=== PATIENT | male | born 1985 | race Hispanic/Latino ===

== ENCOUNTER 2018-01-15 05:53 | Day surgery (SDC) | payer OTHER ==
[2018-01-14 12:49] VITALS: BMI 30.2
[2018-01-15] MEDS ORDERED: Midazolam HCl 2 mg/2 ml Vial ONE (07:47)
--- NOTE | 2018-01-15 08:52 | OP ---
DATE OF PROCEDURE: 01/15/2018 PROCEDURE: Esophagogastroduodenoscopy. PREOPERATIVE DIAGNOSIS: Esophageal varices surveillance. He has had repeated banding procedures don e and today's exam is to verify completion banding. PROCEDURE IN DETAIL: Informed consent was obtained from the patient. He was sedated with total intr avenous anesthesia. The bite block was placed and the endoscope was advanced easily to the second po rtion of the duodenum and retroflexion was performed in the stomach. The esophagus had 3 columns of small varices which are most prominently identified when he was coughing. Otherwise, these flattened out completely and the previous scars from the prior banding were noted. The varices were adequatel y treated at this point and did not require repeat banding today. The stomach had severe portal hype rtensive gastropathy in the body and fundus. Retroflexed views in the stomach revealed prominent rug al folds, but no obvious gastric varices. There was nodular antral gastritis present. The pylorus a nd first and second portions of the duodenum were normal. IMPRESSION: 1. Small varices not amenable to banding today. Scar from previous banding procedures were noted. He appears to have had adequate completion banding for varices at this point. 2. Severe portal hypertensive gastropathy. 3. Antral nodular gastritis. RECOMMENDATIONS: 1. Repeat EGD in 6-12 months. 2. Follow up in GI Clinic.
[2018-01-15] MEDS ORDERED: Lidocaine 1% PF 5 ML VIAL ONE (16:34)
== END 2018-01-15 09:40 | disposition home or self-care (01) ==
LOC: SDC 05:53
PROVIDERS: ATTEND Internal Medicine Gastroenterology
PROC: 0DJ08ZZ Inspection of Upper Intestinal Tract, Via Natural or Artificial Opening Endoscopic (ICD-10-PCS; principal; 2018-01-15)
DX: I85.00 Esophageal varices without bleeding (principal); K76.6 Portal hypertension; K70.31 Alcoholic cirrhosis of liver with ascites; K31.89 Other diseases of stomach and duodenum; K29.60 Other gastritis without bleeding; Z79.899 Other long term (current) drug therapy; Z91.018 Allergy to other foods; Z98.890 Other specified postprocedural states; Z87.891 Personal history of nicotine dependence
CPT/HCPCS: J2001; J2250

== ENCOUNTER 2018-09-04 07:41 | Day surgery (SDC) | payer MEDICARE ==
[2018-09-03 10:19] VITALS: BMI 28.1
[2018-09-04] MEDS ORDERED: Fentanyl 100 MCG/2 ML VIAL ONE (10:45)
--- NOTE | 2018-09-04 11:44 | OP ---
DATE OF PROCEDURE: 09/04/2018 PROCEDURE PERFORMED: Esophagogastroduodenoscopy with banding of esophageal varices. PREOPERATIVE DIAGNOSIS: Esophageal varices. OPERATIVE NOTE: Informed consent was obtained from the patient. He was sedated with total intraveno us anesthesia. The endoscope was advanced easily to the second portion of the duodenum and retroflex ion was performed in the stomach. The esophagus had 2 columns of large varices, 1 with red signs in the distal 5 cm of the esophagus. A band was placed over both varices. One band was placed directly over the area of the red signs and one of the varices. There was severe portal hypertensive gastrop athy throughout the stomach. The pylorus and first and second portions of the duodenum were unremark able. IMPRESSION: 1. Two columns of large esophageal varices each banded with 1 band per varix. 2. Severe portal hypertensive gastropathy. RECOMMENDATIONS: Repeat EGD in 4 weeks.
[2018-09-04] MEDS ORDERED: Lidocaine 1% PF 5 ML VIAL ONE (17:13)
[2018-09-04] MEDS ORDERED: PROPOFOL 200 MG/20 ML VIAL ONE (17:13)
== END 2018-09-04 12:20 | disposition home or self-care (01) ==
LOC: SDC 07:41
PROVIDERS: ATTEND Internal Medicine Gastroenterology
PROC: 06L38CZ Occlusion of Esophageal Vein with Extraluminal Device, Via Natural or Artificial Opening Endoscopic (ICD-10-PCS; principal; 2018-09-04)
DX: K76.6 Portal hypertension (principal); K70.31 Alcoholic cirrhosis of liver with ascites; I85.10 Secondary esophageal varices without bleeding; K31.89 Other diseases of stomach and duodenum; Z87.891 Personal history of nicotine dependence; Z79.899 Other long term (current) drug therapy; Z91.018 Allergy to other foods
CPT/HCPCS: J2001; J2704; J3010

== ENCOUNTER → 2018-10-29 | Day surgery (SDC) | payer MEDICARE ==
[2018-10-28 16:05] VITALS: BMI 28.1
[~2018-10-29] MED LIST: Lidocaine 1% PF 5 ML VIAL ONE; PROPOFOL 200 MG/20 ML VIAL ONE
--- NOTE | 2018-10-29 16:13 | OP ---
DATE OF PROCEDURE: 10/29/2018 PROCEDURE PERFORMED: Esophagogastroduodenoscopy with banding of esophageal varices and biopsy of gastric polyp. PREOPERATIVE DIAGNOSIS: Surveillance of esophageal varices. DESCRIPTION OF PROCEDURE: Informed consent was obtained from the patient. He was sedated with total intravenous anesthesia. A bite block was placed and the endoscope was advanced easily to the second portion of the duodenum and retroflexion was performed in the stomach. The esophagus had 2 columns, large grade 2 varices. These were in the distal 5 cm of the esophagus and were banded with one band on each varix. Good hemostasis was confirmed with those varices. There was no active bleeding at that time. The stomach had severe portal hypertensive gastropathy. There were prominent folds in the body of the stomach and there could be some degree of gastric varices; however, they are not blue and obvious. There were a few gastric polyps in the antrum with white apices. Biopsy was obtained from one of these polyps to rule out carcinoid. The first and second portions of the duodenum were normal. IMPRESSION: 1. Gastric antral polyp with white apices, biopsied. 2. Two large grade 2 varices in the distal 5 cm of the esophagus, banded. 3. Severe portal hypertensive gastropathy. RECOMMENDATIONS: 1. Await histopathology. 2. Follow up in GI clinic in 6 weeks. 3. Continue Nadolol. Job ID: [id number]
== END ==
LOC: SDC 07:00
PROVIDERS: ATTEND Internal Medicine Gastroenterology
PROC: 06L38CZ Occlusion of Esophageal Vein with Extraluminal Device, Via Natural or Artificial Opening Endoscopic (ICD-10-PCS; principal; 2018-10-29)
PROC: 0DB68ZX Excision of Stomach, Via Natural or Artificial Opening Endoscopic, Diagnostic (ICD-10-PCS; 2018-10-29)
DX: I85.01 Esophageal varices with bleeding (principal); K31.7 Polyp of stomach and duodenum; K76.6 Portal hypertension; K31.89 Other diseases of stomach and duodenum
CPT/HCPCS: 88305; 88312; 88342; J2001; J2704

== ENCOUNTER 2019-01-15 07:34 | Outpatient (CLI) | payer MEDICARE ==
--- NOTE | 2019-01-15 09:17 | ULT ---
TESTICULAR ULTRASOUND WITH DOPPLER: Date: 01/15/19 HISTORY: Testicular pain. COMPARISON: None. TECHNIQUE: Santiago scale, color flow, Doppler imaging, and spectral waveform analysis performed of the left and rig ht testicle. FINDINGS: Right Testicle: Punctate echogenic foci compatible with microlithiasis. No solid masses. Right testicle measures 3.7 x 2.0 x 2.9 cm. Right epididymis measures 1.3 x 0.9 cm. There are tubular structures with increased f low upon Valsalva, compatible with varicoceles. No significant fluid. Left Testicle: Punctate echogenic foci compatible with microlithiasis. No solid masses. Left testicle measures 3.1 x 2.1 x 3.7 cm. Left epididymis has a normal echotexture, measuring 1.6 x 1.0 cm. Multiple tubular str uctures with increased flow upon Valsalva, with evidence for varicoceles. No significant fluid. Testicular Doppler: Vascular flow to both testicles is symmetric. IMPRESSION: 1. Multiple echogenic foci left and right testicle, compatible with testicular microlithiasis. 2. Bilateral varicoceles, left greater than right. 3. Urology consultation recommended. POS: [facility]
== END 2019-01-15 07:35 | disposition home or self-care (01) ==
LOC: BICMAMMO 07:34
PROVIDERS: ATTEND Family Medicine
DX: N63.0 Unspecified lump in unspecified breast (principal); N50.9 Disorder of male genital organs, unspecified; I86.1 Scrotal varices
CPT/HCPCS: 76870; 77066; 93976; G0279

== ENCOUNTER 2019-01-27 09:56 | Outpatient (CLI) | payer MEDICARE ==
[2019-01-27] MEDS ORDERED: Iopamidol 370 76% 100 ML VIAL ONE (10:57)
--- NOTE | 2019-01-27 12:45 | CT ---
CT ABDOMEN WITH AND WITHOUT IV CONTRAST CT PELVIS WITH AND WITHOUT IV CONTRAST: DATE: 01/27/2019. HISTORY: Cirrhosis. Right upper quadrant abdominal pain with pain radiating to patient's back. COMPARISON: None available. FINDINGS: The lung bases are clear. There is a nodular peripheral contour of the liver most compatible with ci rrhosis. There is evidence of capsular retraction involving the anterolateral aspect of the right an d left hepatic lobes. There are irregular low-density areas, 1 beneath the level of capsular retracti on and the secondary within the right hepatic lobe. The area in the right hepatic lobe measures appro ximately 5 cm x 2 cm. There is no evidence of enhancement on the arterial phase of imaging and these areas of heterogeneity are only well seen on the portal venous phase of imaging. Findings are most likely related to areas of scarring and/or possibly regenerating nodules. The caudate lobe of the li joss is enlarged with respect to the remainder of the right and left hepatic lobes and this results in luminal narrowing of the hepatic IVC. The spleen is enlarged measuring 19.4 cm in craniocaudal dimensions. There is dilatation of the sple yaya as well as main portal vein with each measuring approximately 17 mm suggesting portal hypertensio n. There is evidence of varices seen in the region of the splenic hilum and inferior to this region. There is stranding seen within the mesentery with associated mesenteric edema, which is likely rela jewels to congestion likely related to venous congestion due to cirrhosis. The left kidney is atrophied with renal cortical thinning. There is left hydronephrosis, and finding s are likely related to chronic process and probable UPJ-type obstruction. The lung bases are clear aside from minimal atelectasis in the region of the right middle lobe. The pancreas, bilateral adrenal glands, right kidney, urinary bladder, and opacified small bowel demo nstrate a normal CT appearance. The appendix is visualized and normal in caliber. There are prominent areas of increased density seen along the course of the left gonadal vein adjacen t to what is presumed a prominent varix in the left aspect of the abdomen which is again thought to b e related to a greater degree of venous congestion and associated edema in this region. Minimal vascular calcifications are seen in the abdominal aorta. No enlarged lymph nodes are seen by CT size criteria, although a few mildly prominent mesenteric lymp h nodes are seen, probably reactive in origin. Osseous structures are intact. IMPRESSION: 1. Cirrhosis and splenomegaly with portal hypertension. 2. Low-density areas within the liver, one of which is beneath an area of capsular retraction, proba holly related to areas of scarring or possibly regenerating nodules. However, MRI of the abdomen and [employer] are recommended for further evaluation. 3. Narrowing of the hepatic inferior vena cava secondary to enlargement of the caudate lobe of the l iver due to cirrhosis. 4. Mesenteric edema with findings likely related to venous congestion secondary to cirrhosis. 5. Chronic findings involving the left kidney with left renal atrophy and renal cortical thinning wi th left hydronephrosis probably attributable to ureteropelvic junction-type obstruction. CODE T POS: [facility]
== END 2019-01-27 09:57 | disposition home or self-care (01) ==
LOC: BICCT 09:56
PROVIDERS: ATTEND Physician Assistant Medical
DX: K70.31 Alcoholic cirrhosis of liver with ascites (principal); I85.00 Esophageal varices without bleeding; M54.5 Low back pain; K76.6 Portal hypertension; N26.1 Atrophy of kidney (terminal); N13.30 Unspecified hydronephrosis; N28.89 Other specified disorders of kidney and ureter
CPT/HCPCS: 74178; Q9967

== ENCOUNTER 2019-02-19 07:23 | Outpatient (CLI) | payer MEDICARE ==
[2019-02-19 09:02] LABS: Estimated GFR-MDRD - POC Greater than 90
--- NOTE | 2019-02-19 10:02 | MRI ---
[facility] Abdomen W WO Con: 02/19/2019 12:00 AM CLINICAL INDICATION: Liver lesion seen on a prior CT evaluation. History of cirrhosis of the liver COMPARISON: CT of the abdomen and pelvis dated January 27, 2019 TECHNIQUE: Pre and dynamic post contrast evaluation of the abdomen was performed on a 1.5 Elisabeth scan er. The following sequences were obtained: Multiplanar multisequence MR images were obtained of the tyree cool utilizing MRCP protocol. 18 ml of MultiHance was administered. MRCP was also performed using a 3-D respiratory triggered T2-we ighted and axial thin slice breath-hold single shot FSE sequences. Image quality is adequate. FINDINGS: Liver is 19.7 cm in size, heterogeneous signal intensity and heterogeneous enhancement pattern. No the hypodense lesion seen on the comparison CT evaluation corresponds to areas of stellate T1 hypo intensity, T2 hyperintensity with delayed enhancement. There is mild retraction of the anterior right hepatic lobe sclerotic margins. No suspicious focal lesion is demonstrated. Iron deposition: 9 Gallbladder is seen with a small intraluminal stone and there is not intrahepatic or extrahepatic kallie iary ductal dilatation. Hepatic arterial anatomy classical from the celiac axis . There is early bifurcation of the right hep atic artery from the common hepatic artery. Aorta is within normal limits. No stenoses: Intrahepatic and extrahepatic bile ducts: Normal. Gallbladder is normal with small intraluminal stone . Lymph nodes: No pathologically enlarged There is no ascites. Spleen: Enlarged measuring 23 cm in length Adrenal glands: Normal. Kidneys: There is a chronic UPJ obstruction of the left kidney with thinning of the left renal cortic al mantle. The right kidney is normal-appearing. No abnormal bone marrow signal abnormality is evident. IMPRESSION: The hypodense abnormality seen involving the right hepatic lobe on the comparison CT evaluation is li aiyana related to focal confluent fibrosis of the liver. No suspicious focal liver lesion is evident. Cirrhosis of the liver with findings of portal hypertension. Cholelithiasis. 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
[2019-02-19] MEDS ORDERED: Gadobenate Dimeglumine 529 MG/1 ML (20ML VIAL) ONE (13:57)
== END 2019-02-19 07:24 | disposition home or self-care (01) ==
LOC: BICMRI 07:23
PROVIDERS: ATTEND Physician Assistant Medical
DX: K70.31 Alcoholic cirrhosis of liver with ascites (principal); I85.10 Secondary esophageal varices without bleeding; R93.3 Abnormal findings on diagnostic imaging of other parts of digestive tract; R93.819 Abnormal radiologic findings on diagnostic imaging of unspecified testicle; M54.5 Low back pain; K74.60 Unspecified cirrhosis of liver; K76.6 Portal hypertension; N13.5 Crossing vessel and stricture of ureter without hydronephrosis; K80.20 Calculus of gallbladder without cholecystitis without obstruction; K76.9 Liver disease, unspecified
CPT/HCPCS: 74183; 82565; A9577

== ENCOUNTER 2019-08-28 07:46 | Outpatient (CLI) | payer MEDICARE ==
--- NOTE | 2019-08-28 10:15 | ULT ---
ABDOMINAL ULTRASOUND: HISTORY: Abdominal pain. FINDINGS: The gallbladder shows diffuse wall thickening and pericholecystic edema. No definite gallstone ident ified. There is mild gallbladder distention. The common duct is within normal range measured at 3 m m. The technologist describes a negative Vallejo's sign. There is hepatomegaly with liver measuring up to 20 cm. There is splenomegaly with the spleen measuring 23 cm. Aorta is mostly obscured but appears unremarkable as visualized. IVC is unremarkable as visualized. Pancreas is obscured. Both kidneys measured 13-14 cm in length. There is a large irregularly shaped cystic mass in the lef t renal pelvis measuring 6-12 cm. When comparison is made to prior CT of abdomen dated 01/27/2019 and MRI of the abdomen dated 02/19/2019, this was described as a left UPJ obstruction with dilated left re nal pelvis. The right kidney is unremarkable. IMPRESSION: 1. Hepatosplenomegaly is again noted. This has been previously described on CT and MRI of abdomen. 2. The gallbladder is abnormal with thickened wall and pericholecystic edema. No gallstones are barry ntified. The technologist describes a negative Vallejo's sign. 3. Left hydronephrosis with dilated left renal pelvis which has been previously described on MRI and CT. POS: [facility]
== END 2019-08-28 07:47 | disposition home or self-care (01) ==
LOC: BICULT 07:46
PROVIDERS: ATTEND Family Medicine
DX: R10.84 Generalized abdominal pain (principal); R16.2 Hepatomegaly with splenomegaly, not elsewhere classified; K82.8 Other specified diseases of gallbladder; N28.89 Other specified disorders of kidney and ureter; N13.30 Unspecified hydronephrosis
CPT/HCPCS: 76700

== ENCOUNTER 2020-05-12 14:29 | Inpatient (IN) | payer MEDICARE ==
[2020-05-12 15:46] LABS: #Eosinphils 0.1 thou/uL (0.0-0.7); #Lymphocytes 0.4 thou/uL (1.20-3.40); #Monocytes 0.6 thou/uL (0.11-0.59); #Neutrophils 4.8 thou/uL (1.40-6.50); %Basophils 0.1 % (0.0-1.0); %Eosinophils 2.4 % (0.0-10.0); %Lymphocytes 5.9 % (21.0-51.0); %Monocytes 9.9 % (0.0-10.0); %Neutrophils 81.7 % (42.0-75.0); Hemoglobin 11.6 g/dL (14.0-18.0); Mean Corpuscular HGB CONC 34.3 g/dL (32.0-36.0); Mean Corpuscular Hemoglobin 35.6 pg (27.0-31.0); Mean Platelet Volume 7.1 fL (7.4-10.4); Platelet Count 37 thou/uL (130-400); RBC Distribution Width 14.2 % (11.5-14.5); Red Blood Cell (RBC) Count 3.26 mill/uL (4.70-6.10); White Blood Cell (WBC) Count 5.9 thou/uL (4.8-10.8)
[2020-05-12 15:55] LABS: Bilirubin 2+ (Negative); Blood, Urine Negative (Negative); Clarity Clear (Clear); Glucose, Urine (Dipstick) Normal (Negative); Leukocyte Negative Leu/uL (Negative); Nitrite Negative (Negative); Protein, Urine (Dipstick) 20 mg/dL (Neg-Trace)
[2020-05-12 15:57] LABS: ALT (SGPT) 24 U/L (8-55); AST (SGOT) 71 U/L (5-34); Albumin 2.8 g/dL (3.5-5.0); Alkaline Phosphatase 124 U/L (40-110); Anion Gap 13 mmol/L (10-20); BUN (Urea Nitrogen) 7 mg/dL (8.9-20.6); Bilirubin, Total 11.5 mg/dL (0.2-1.2); Calc. Creatinine Clearance 0 mL/min (70-130); Calcium 7.8 mg/dL (7.8-10.44); Carbon Dioxide 25 mmol/L (22-29); Chloride 94 mmol/L (98-107); Estimated GFR-MDRD Greater than 90; Globulin 5.2 g/dL (2.4-3.5); Glucose 114 mg/dL (70-105); Sodium 129 mmol/L (136-145)
[2020-05-12 16:02] LABS: Potassium 2.8 mmol/L (3.5-5.1)
[2020-05-12] MEDS ORDERED: Morphine 4 MG/ML VIAL ONE (16:51)
--- NOTE | 2020-05-12 17:21 | RAD ---
EXAM: CHEST ONE VIEW HISTORY: Dyspnea. Abdominal distention. COMPARISON: 04/20/2016. FINDINGS: Cardiac silhouette is magnified by projection. Pulmonary vasculature is within normal limits. There i s minimal linear and patchy parenchymal density at the left lung base which may be related to atelectasis. However, developing pneumonia at the left lung base is a possibility. The lungs are othe rwise clear. No other interval change. IMPRESSION: Linear and patchy parenchymal density left lung base which may be related to atelectasis. Developing pneumonia cannot be excluded. Follow-up chest x-ray is recommended to ensure resolution.
--- NOTE | 2020-05-12 18:18 | ULT ---
Exam: Right upper quadrant ultrasound: HISTORY: Abdominal pain. Elevated bilirubin. COMPARISON: Abdominal ultrasound 08/28/2019 FINDINGS: Liver: Coarsened echotexture with peripheral nodular contour suggesting cirrhosis. No focal hepatic l esion is appreciated. Imaging of the main portal vein demonstrates absence of flow within the more distal main portal vein suggesting thrombus within the main portal vein and possibly occlusion of the main portal vein distally. Gallbladder: Gallbladder wall is thickened measuring 0.9 cm in thickness. Echogenic material seen in the gallbladder lumen suggesting sludge. There is a small echogenic focus seen in the gallbladder lumen with suggestion of posterior shadowing, this likely represents a gallbladder calculus. Common bile duct: The common duct is normal in caliber measuring 0.5 cm in diameter. Pancreas: Completely obscured by shadowing from bowel gas and not evaluated on this exam. Right kidney: The right kidney is enlarged measuring 17 cm in length, the right kidney does demonstra te a normal sonographic appearance and there is no renal cortical thinning or mass appreciated. IVC: The visualized IVC demonstrates a normal sonographic appearance. Moderate to large amount of ascites is present. IMPRESSION: 1. Suggestion of occlusive or near occlusive thrombus in the distal main portal vein. 2. Evidence of cirrhosis. 3. Gallbladder wall thickening with gallbladder sludge as well as a gallbladder calculus. Gallbladder wall thickening can be seen with cholecystitis in the correct clinical scenario. However, hypoproteinemia or liver disease versus other etiologies could also result in gallbladder wall thicke alvarez. 4. Normal caliber common duct. 5. Right kidney is large in size but otherwise demonstrates a normal sonographic appearance.
--- NOTE | 2020-05-12 19:17 | CT ---
CT OF THE ABDOMEN AND PELVIS WITH IV CONTRAST: 05/12/20 INDICATIONS: 34-year-old male with abdominal distention. COMPARISON: Prior MR of the abdomen dated 02/19/19, CT abdomen and pelvis dated 01/27/19. FINDINGS: There is mild subsegmental atelectasis involving both lower lobes. There is gynecomastia. Again seen is cirrhotic morphology of the liver with heterogeneous enhancement of the hepatic parench yma. Spleen remains enlarged measuring 20.8 cm in greatest axial dimension where it previously measur ed 18.1 cm. There are numerous splenic paraesophageal varicosities. Chronic left UPJ obstruction is similar appearing. Right kidney is normal appearing. Adrenal gland and visualized pancreas is normal appearing. Small gallstones seen within the gallbladder. There is now worsening severe ascites. There is a fat and fluid containing umbilical hernia. The visualized bladder, rectum, and perirectal soft tissues are unremarkable appearing. The colon is largely decompressed. The appendix is not defin itely seen. Small bowel is normal caliber. Scattered degenerative and osteoarthritic change. No acute osseous abnormalities evident. IMPRESSION: 1. Findings of cirrhosis with worsening portal hypertension and splenomegaly. There is now promi nent ascites. 2. Stable chronic left UPJ obstruction. 3. Cholelithiasis. 4. With the presence of ascites and incomplete distention of the small and large bowel, entity s uch as a colitis cannot be entirely excluded. The appendix is not definitely seen. POS: [facility]
[2020-05-12 22:57] VITALS: BMI 28.0
[2020-05-12] MEDS ORDERED: Potassium Chloride 40 MEQ in Sodium Chloride 0.9% 500 ML IVPB PRN (23:51)
[2020-05-12] MEDS ORDERED: Potassium Chloride 20 MEQ TAB PO SCH (23:59)
[2020-05-13] MEDS ORDERED: Spironolactone 100 MG TAB PO SCH (00:15)
[2020-05-13] MEDS ORDERED: HYDROcodone/Acetaminophen 5/325 mg Tablet PO PRN (00:26)
[2020-05-13] MEDS ORDERED: Dextrose 5% in Water 1,000 ML IV PRN (00:28)
[2020-05-13] MEDS ORDERED: Dextrose 50% Abboject 50 ML SYRINGE SLOW IVP PRN (00:28)
[2020-05-13 01:04] LABS: PTT 38.9 sec (22.9-36.1); Prothrombin Time 22.2 sec (12.0-14.7)
[2020-05-13] MEDS ORDERED: Magnesium 2 GM/50 ML 2 GM in Premix Bag 1 BAG IVPB SCH (01:45)
--- NOTE | 2020-05-13 02:10 | HP ---
PRIMARY CARE PHYSICIAN: Dr. Pedersen. CHUTE BOSS: Dr. Millard. CHIEF COMPLAINT: Abdominal distention and pain. HISTORY OF PRESENT ILLNESS: The patient is a 34-year-old male, with a past medical history of cirrhosis, hep C, esophageal varices, and hypertension, who presents to the ER for the above complaint. The patient reports abdominal distention over the last 1 to 2 months with some associated pain. He reports over the last two weeks, the swelling has been increasing and pain became severe yesterday. He also reports some associated bilateral swelling to lower extremities, which he reports is new for him. He reports approximately an 8-pound weight gain in the past month. He denies any nausea, vomiting, or diarrhea. He denies any urinary symptoms. He denies any fever or chills. He denies any chest pain or shortness of breath. He denies any cough. For these reasons, he came to the ER. In the ER, EKG, the patient presented tachycardic, 102 with a respiratory rate of 23, and pain scale 7/10 with normal blood pressure and afebrile. His BNP was 115.9. His troponin was 0.017. He also had chest x-ray. It showed linear and patchy parenchymal densities in the left lower base, which may be atelectasis or developing pneumonia that cannot be excluded. Recommended a followup chest x-ray. He showed up with a potassium of 2.8, a sodium of 129. His bilirubin was 11.5, AST 71, ALT 24, alk phos 124, and albumin of 2.8. His lipase was 86. The patient was given morphine 4 and sent to the floor for admission. PAST MEDICAL HISTORY: 1. Cirrhosis. 2. Esophageal varices. 3. Hepatitis C, cured per patient. 4. Hypertension. SURGICAL HISTORY: EGD x2. SOCIAL HISTORY: He lives with his family at home. He drinks greater than 10 drinks per day. He states last drink was several days ago. He smokes approximately 10 cigarettes per day for the past 20 years. He denies any illicit drug use. FAMILY HISTORY: Noncontributory to this case. ALLERGIES: NO KNOWN ALLERGIES. MEDICATIONS: 1. Lactulose 30 mL p.o. daily. 2. Vitamin B1 of 250 mg p.o. daily. 3. Folic acid 0.8 mg p.o. daily. 4. Potassium chloride 20 mEq p.o. daily. 5. Lasix 40 mg b.i.d. p.o. b.i.d. 6. Ferrous sulfate 325 mg p.o. b.i.d. REVIEW OF SYSTEMS: All other review of systems are negative unless otherwise noted in the HPI. PHYSICAL EXAMINATION: VITAL SIGNS: Temperature 98.3, blood pressure 136/93, heart rate 102, respiratory rate 23, and 99% on room air. 7/10 pain scale. CONSTITUTIONAL: Patient is alert and oriented to person, place, and time. No acute distress. Nontoxic appearing. HEAD: Atraumatic and normocephalic. EYES: PERRLA. Extraocular muscles intact. Sclerae nonicteric. ENT: Nares patent bilaterally. Oropharynx clear. Uvula midline. Moist mucous membranes. No oral lesions. NECK: Supple. Trachea midline. No JVD. No cervical lymphadenopathy. RESPIRATORY/CHEST: Respirations are even and unlabored. No rhonchi, wheezes, or rales. HEART: S1, S2 auscultated. No murmurs, rubs, or gallops. ABDOMEN: Firm, nontender, and severely distended. Bowel sounds are distant. No guarding and there is an umbilical hernia present. BACK: Full range of motion. No central spinous tenderness. No CVA tenderness. EXTREMITIES: Upper extremities, strength, normal. Range of motion, normal. Sensation, intact. Radial pulses are palpable. No swelling. Bilateral lower extremities, full range of motion. Sensation intact. There is 2+ pitting edema to bilateral lower extremities. Palpable pedal pulses. NEUROLOGIC: Alert and oriented to person, place, and time. Cranial nerves 2 through 12 intact. PSYCHIATRIC: Normal affect. No suicidal or homicidal ideation. LABORATORIES AND DIAGNOSTICS: Chest x-ray showed linear and patchy parenchymal density left lung base, may be atelectasis or developing pneumonia, which cannot be excluded. Recommended followup chest x-ray. Sodium was 129, potassium 2.8, chloride 94, carbon dioxide 25, BUN 7, creatinine 0.82, glucose 114, calcium 7.8 , total bili 11.5, AST 71, ALT 24, and alk phos 124. Troponin 0.017. BNP 115.9. Albumin 2.8 and lipase 86. WBC is 5.9, hemoglobin 11.6, hematocrit 33.9, and platelet count 37. Urinalysis, 2+ bilirubin and 8 urobilinogen. IMPRESSION AND PLAN: 1. We will admit the patient to Oncology floor for observation status. Expected length of stay less than two midnights. Patient presented with tachycardic and tachypneic. EKG was sinus tach, 105. Initial troponin is negative. BNP was 115.9. Abdomen is severely distended. Patient reports an 8-pound weight gain in the past month or two. He has swelling to his bilateral lower extremities, 2+ edema. He is in no respiratory distress. Chest x-ray showed linear and patchy parenchymal densities in the left lung base, may be atelectasis or developing pneumonia that cannot be excluded. Potassium was 2.8, sodium was 129, T bili 11.5, and alk phos 124. WBCs of 5.9, and platelets of 37. We will place the patient on a fluid restriction of 1500 mL, 2 g sodium restriction, daily weights. We will start spironolactone. We will check a B12, folate, ammonia, INR for baseline. We will recheck CMP, CBC in the a.m. We will consult IR for paracentesis and GI. We will repeat chest x-ray in the morning. We will do Accu-Cheks before meals and at bedtime. 2. Hyponatremia. Hypotonic, likely FVO secondary to Cirrhosis. Patient presented with a sodium of 129. A&O x 4. We will recheck level in the a.m. We will fluid restrict. 3. Hypokalemia. The patient presented with a potassium of 2.8. We will give 40 mEq IV and 40 mEq oral and check a Mag level and recheck level in the a.m. 4. Thrombocytopenia. Patient presents with a platelet count of 37. No sign of any bruising. He denies any hemoptysis or bleeding. Baseline appears to be in the 40s. 5. History of cirrhosis with esophageal varices. Patient denies any hemoptysis. Hemoglobin is stable at 11.6. Denies any bleeding per rectum. 6. Hepatitis C. Patient reports cured. 7. Hypertension. Patient takes Lasix 40 mg p.o. b.i.d. We will hold for now secondary to low sodium. We will start spironolactone and we will recheck labs in the a.m. 8. No DVT prophylaxis. No SCDs for DVT prophylaxis. Protonix for gastrointestinal prophylaxis. 9. Patient is a full code. His MPOA is Kera, his number is [phone]. 10. Discussed the case with Dr. Nate Ramirez. Job ID: [id number] [id number]
[2020-05-13 05:08] LABS: #Eosinphils 0.2 thou/uL (0.0-0.7); #Lymphocytes 0.4 thou/uL (1.20-3.40); #Monocytes 0.7 thou/uL (0.11-0.59); #Neutrophils 5.1 thou/uL (1.40-6.50); %Basophils 0.6 % (0.0-1.0); %Eosinophils 2.6 % (0.0-10.0); %Lymphocytes 5.8 % (21.0-51.0); %Monocytes 11.1 % (0.0-10.0); %Neutrophils 79.9 % (42.0-75.0); Hemoglobin 10.5 g/dL (14.0-18.0); Mean Corpuscular HGB CONC 33.5 g/dL (32.0-36.0); Mean Corpuscular Hemoglobin 34.5 pg (27.0-31.0); Mean Platelet Volume 7.3 fL (7.4-10.4); Platelet Count 34 thou/uL (130-400); RBC Distribution Width 14.3 % (11.5-14.5); Red Blood Cell (RBC) Count 3.04 mill/uL (4.70-6.10); White Blood Cell (WBC) Count 6.4 thou/uL (4.8-10.8)
[2020-05-13 05:20] LABS: ALT (SGPT) 20 U/L (8-55); AST (SGOT) 64 U/L (5-34); Albumin 2.6 g/dL (3.5-5.0); Alkaline Phosphatase 107 U/L (40-110); Anion Gap 11 mmol/L (10-20); BUN (Urea Nitrogen) 8 mg/dL (8.9-20.6); Bilirubin, Total 11.1 mg/dL (0.2-1.2); Calc. Creatinine Clearance 160 mL/min (70-130); Calcium 7.5 mg/dL (7.8-10.44); Carbon Dioxide 27 mmol/L (22-29); Chloride 95 mmol/L (98-107); Estimated GFR-MDRD Greater than 90; Globulin 4.8 g/dL (2.4-3.5); Glucose 106 mg/dL (70-105); Magnesium 1.5 mg/dL (1.6-2.6); Potassium 3.2 mmol/L (3.5-5.1); Protein, Total 7.4 g/dL (6.0-8.3); Sodium 130 mmol/L (136-145)
--- NOTE | 2020-05-13 07:49 | RAD ---
EXAM: Chest 2 views: HISTORY: Left lung base opacity COMPARISON: 05/12/2020 FINDINGS: There is a normal-sized cardiomediastinal silhouette. There is no evidence of consolidation, mass, or pleural effusion. The bones are unremarkable. IMPRESSION: No evidence of acute cardiopulmonary disease
[2020-05-13] MEDS: Spironolactone 100 MG TAB PO SCH (10:13)
[2020-05-13] MEDS: Nadolol 40 MG TAB PO SCH (10:13)
[2020-05-13] MEDS: Folic Acid 1 MG TAB PO SCH (10:14)
[2020-05-13] MEDS: Multivitamin W/ Minerals 1 TAB PO SCH (10:14)
[2020-05-13] MEDS: Cyanocobalamin (Vitamin B-12) 1,000 MCG TAB PO SCH (10:14)
[2020-05-13] MEDS: Pantoprazole 40 MG GRANULES PACKET PO SCH (10:15)
[2020-05-13] MEDS ORDERED: Sodium Bicarbonate 2.5 MEQ/5 ML VIAL ONE (11:48)
[2020-05-13] MEDS ORDERED: Sodium Chloride 0.9% 10 ML ONE (12:17)
--- NOTE | 2020-05-13 12:32 | ULT ---
ULTRASOUND-GUIDED PARACENTESIS THERAPEUTIC: DATE: 05/13/2020 HISTORY: 34-year-old male with symptomatic ascites due to cirrhosis: Severe abdominal distention TECHNIQUE: Signed informed consent obtained. A four-quadrant survey of abdomen performed. Site selected for puncture: right lower quadrant Overlying skin prepared and draped in usual sterile fashion. 25-gauge needle used to apply buffered lidocaine superficially and deeply. 5 [place] Yueh catheter with stylette advanced into the pocket of free intraperitoneal fluid. After drainage, the Yueh catheter was removed. Patient tolerated the procedure well. No complications. FINDINGS: Volume of ascites prior to procedure:Very large. Volume of ascites fluid in the drainage pocket after drainage:large. Volume of ascites fluid drained:7000 mL Appearance of ascites fluid:nonhemorrhagic, straw-colored. IMPRESSION: Successful therapeutic paracentesis, with drainage of 7 L of ascites fluid.
--- NOTE | 2020-05-13 13:12 | PDOC.HOSPP ---
- Subjective Encounter Date: 05/13/20 Encounter Time: 11:30 Subjective: is getting paracentesis under usg guidance with platelet transfusion no sob or abd pain now - Objective Vital Signs & Weight: Vital Signs (12 hours) Temp Pulse Pulse Resp BP BP BP 05/13/20 12:25 98.3 F 78 18 106/65 05/13/20 11:40 98.2 F 88 20 111/69 05/13/20 11:31 98.5 F 83 18 118/76 05/13/20 11:15 98.5 F 16 118/76 05/13/20 09:07 98.5 F 90 18 123/76 05/13/20 08:00 98.5 F 90 18 123/76 123/76 05/13/20 03:41 98.4 F 99 16 118/80 Pulse Ox 05/13/20 12:25 99 05/13/20 11:40 98 05/13/20 11:31 96 05/13/20 11:15 97 05/13/20 09:07 98 05/13/20 08:00 98 05/13/20 03:41 95 Weight Weight 184 lb 3.2 oz I&O: 05/12/20 05/13/20 05/14/20 06:59 06:59 06:59 Intake Total 1040 Balance 1040 Result Diagrams: 05/13/20 04:41 05/13/20 04:41 Additional Labs: Accuchecks 05/13/20 05/13/20 10:34 06:19 POC Glucose 182 H 109 Hospitalist ROS - Medication Medications: Active Medications Generic Name Dose Route Start Last Admin Trade Name Faina PRN Reason Stop Dose Admin Cyanocobalamin 1,000 mcg 05/13/20 09:00 05/13/20 10:14 Vitamin B-12 PO 1,000 mcg DAILY RENARD Administration Folic Acid 1 mg 05/13/20 09:00 05/13/20 10:14 Folvite PO 1 mg DAILY RENARD Administration Potassium Chloride 40 meq/ 520 mls @ 130 mls/hr 05/12/20 23:51 05/13/20 01:14 Sodium Chloride IVPB 520 mls ASDIR PRN Administration FOR SERUM K+ 2.5 - 3.5 Iron/Minerals/Multivitamins 1 tab 05/13/20 09:00 05/13/20 10:14 Theragran M PO 1 tab DAILY RENARD Administration Lactulose 30 gm 05/13/20 09:00 05/13/20 10:14 Lactulose PO 30 gm DAILY RENARD Administration Nadolol 20 mg 05/13/20 09:00 05/13/20 10:13 Corgard PO 20 mg DAILY RENARD Administration Pantoprazole Sodium 40 mg 05/13/20 09:00 05/13/20 10:15 Protonix PO Not Given DAILY RENARD Pantoprazole Sodium 40 mg 05/13/20 09:00 05/13/20 10:14 Protonix PO 40 mg DAILY RENARD Administration Spironolactone 100 mg 05/13/20 08:00 05/13/20 10:13 Aldactone PO 100 mg QAM-WM RENARD Administration - Exam General Appearance: awake alert Eye: PERRL, scleral icterus ENT: no oropharyngeal lesions, dry oral mucosa Neck: supple, no JVD Heart: RRR, no murmur Respiratory: no wheezes, no rales Gastrointestinal: soft, normal bowel sounds, no guarding, no rigidity, distended Extremities: no cyanosis, 2+ LE edema Neurological: cranial nerve grossly intact, no focal deficits Psychiatric: A&O x 3 Hosp A/P (1) Cirrhosis Code(s): K74.60 - UNSPECIFIED CIRRHOSIS OF LIVER Status: Chronic Qualifiers: Hepatic cirrhosis type: alcoholic cirrhosis Ascites presence: with ascites Qualified Code(s): K70.31 - Alcoholic cirrhosis of liver with ascites (2) Alcohol abuse Code(s): F10.10 - ALCOHOL ABUSE, UNCOMPLICATED Status: Chronic (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 Code(s): D68.4 - ACQUIRED COAGULATION FACTOR DEFICIENCY Status: Chronic (4) Chronic hepatitis C Code(s): B18.2 - CHRONIC VIRAL HEPATITIS C Status: Chronic Qualifiers: Hepatic coma status: without hepatic coma Qualified Code(s): B18.2 - Chronic viral hepatitis C (5) Pancytopenia Code(s): D61.818 - OTHER PANCYTOPENIA Status: Chronic (6) Portal vein thrombosis Code(s): I81 - PORTAL VEIN THROMBOSIS Status: Acute - Plan had paracentesis with removal of 7lts ascitic fluid known h/o ascites sec to alc abuse has chr pancytopenia with coagulopathy usg shows finding s/o portal vein thrombosis, inr is 2, ptt is 38 and platelets of 34 Has a MELD score of 23 poor prognosis, is jaundiced with t.bili of 11 counselled regarding complete cessation of alcohol use change status to inpatient, needs close monitoring of renal function and BP for another 24hrs
--- NOTE | 2020-05-14 02:13 | CON ---
DATE OF CONSULTATION: 05/13/2020 CONSULTING PROVIDER: Alex Valentin NP REASON FOR CONSULTATION: Increase in abdominal distention and abdominal pain. HISTORY OF PRESENT ILLNESS: The patient is a 34-year-old male with past medical history of chronic hepatitis C infection, hypertension, and cirrhosis complicated by esophageal varices and hepatic encephalopathy, presenting with complaints of increasing abdominal distention and abdominal pain. He states that he was in his usual state of health until approximately 2 months ago when he began to experience increased abdominal swelling and weight gain over that same time period. However, this also started to include increased lower extremity edema over the last 2 weeks that ultimately prompted the patient to come to the [facility] ER for further evaluation. With this increased abdominal swelling and lower extremity edema, he also had associated generalized abdominal pain that he characterized as a pressure type pain/discomfort that was constant with waxing/waning severity, and reached a severity of 8/10. He denied any clear exacerbating factors, but was significantly better after a large volume paracentesis. During this time period, he also noted worsening of his umbilical hernia as well as mildly increased diarrhea, but the patient is also currently taking lactulose as an outpatient for hepatic encephalopathy. Otherwise, he denied any nausea, vomiting, fevers, chills, hematemesis, melena, hematochezia, dysphagia, odynophagia, constipation, weight loss, or encephalopathy. REVIEW OF SYSTEMS: A 10-category review of systems was obtained with all responses negative except for the pertinent positives as listed in HPI. PAST MEDICAL HISTORY: As per HPI. PAST SURGICAL HISTORY: EGD x2. FAMILY HISTORY: Denies any GI malignancies. SOCIAL HISTORY: He was recently drinking approximately 10 beers per day with his last drink approximately 1 week ago. He was also smoking approximately 1/2 pack per day for the last 20 years. Currently, denies any illicit drug use. OUTPATIENT MEDICATIONS: Reviewed. ALLERGIES: NO KNOWN DRUG ALLERGIES. PHYSICAL EXAMINATION: VITAL SIGNS: Temperature 98.4, pulse 87, blood pressure 97/54, respiratory rate 14, saturating 95% on room air. GENERAL: The patient was lying in bed, in no acute distress. Alert and oriented x4. HEENT: Normocephalic, atraumatic. NECK: Supple. No JVD noted. Positive scleral icterus. CARDIOVASCULAR: Regular rate and rhythm with a 3/6 systolic murmur best heard at the right upper sternal border. RESPIRATORY: Clear to auscultation bilaterally with no discernible wheezes or rales. ABDOMEN: Normoactive bowel sounds, semi-tense to palpation, significantly distended, but no tenderness to palpation in any abdominal quadrant. EXTREMITIES: 1+ bilateral lower extremity edema extending up to the mid thigh. LABORATORY DATA: CBC with a white blood cell count of 6.4, hemoglobin 10.5, hematocrit 31.3, platelets 34. INR 2.0. Chemistry with a sodium of 130, potassium 3.2, chloride 95, CO2 of 27, BUN 8, creatinine 0.76, glucose 106, AST 64, ALT 20, alkaline phosphatase 107, total bilirubin 11.1, albumin 2.6, ammonia 52. MELD score 27. IMAGING DATA: Abdominal ultrasound obtained on May 12, 2020, showed an occlusive or near occlusive thrombus in the distal main portal vein, cholelithiasis without evidence of cholecystitis and normal diameter of the common bile duct at 5 mm in addition to coarsened echotexture of the liver suggesting cirrhotic morphology, but no focal hepatic lesion was appreciated, and a [id number] amount of ascites was also present. CT of the abdomen and pelvis was obtained on May 12, 2020, which showed the presence of gynecomastia as well as cirrhotic morphology of the liver with heterogeneous enhancement of the hepatic parenchyma. Splenomegaly was also seen, but no evidence of hepatic lesions. Severe ascites was also seen with a fat and fluid containing umbilical hernia and a stable chronic left UPJ obstruction. ASSESSMENT AND PLAN: The patient is a 34-year-old male with past medical history of chronic hepatitis C infection, status post treatment, hypertension, and cirrhosis complicated by esophageal varices and hepatic encephalopathy, now presenting with new onset ascites and portal vein thrombosis, which appears to be chronic in nature. Abdominal ascites: The patient has a prior history of alcoholic cirrhosis that has been complicated by esophageal varices and hepatic encephalopathy. However, despite recommendations to discontinue alcohol consumption, he has continued to do so in an outpatient setting, drinking approximately 10 beers per day. Over the last 2 months, he has been having slowly worsening abdominal distention with imaging on admission consistent with abdominal ascites. On laboratory evaluation, he also has significantly worsening hepatic dysfunction with a current MELD score of 27. He subsequently underwent paracentesis on May 13, 2020, with approximately 7 L of straw-colored fluid obtained, although this fluid was not sent for analysis (would have been nice to evaluate for possible SBP and/or malignant type process given new onset ascites). Recommendations: 1. The patient may need a repeat paracentesis here in the near future, but we will continue to monitor clinically. 2. We would continue the patient on spironolactone 100 mg daily, but add furosemide 40 mg daily to the regimen for adequate diuresis. 3. Recommend a low-sodium/high-protein diet. 4. Fluid restriction is not needed as long as the patient is consuming free water (She will be placed on low-sodium intake). Lower extremity edema: The patient is presenting with increased lower extremity edema over the last 2 weeks, most likely from worsening liver failure and hypoalbuminemia, which is likely contributing to his ascites as well. Recommendations: 1. We would continue with diuretic management as explained above. Alcoholic cirrhosis: The patient is presenting with a longstanding history of alcohol consumption and resultant cirrhosis that has been made on prior diagnosis and complicated by esophageal varices and hepatic encephalopathy. Currently, the patient is presenting with decompensated disease given the presence of esophageal varices, hepatic encephalopathy, and now new onset ascites and lower extremity edema. The patient's calculated MELD score at this time is 27 with a Child-Orozco classification C indicative of worsening hepatic function, most likely secondary to recent alcohol consumption. At this time, the patient's 90-day mortality is approaching approximately 30% given his current labs and most likely due to his continued alcohol consumption. Recommendations: 1. We would continue to trend LFTs and INR daily for signs of worsening hepatic function/hepatic failure. 2. Continue to monitor for worsening hepatic encephalopathy as it may be a harbinger of worsening liver function. 3. We would continue the patient on lactulose 30 mL daily with a goal of having approximately 3 to 4 semi-solid bowel movements a day. Evaluation with serum ammonia is not an accurate indicator of hepatic encephalopathy and therefore should not be trended. 4. We will continue nadolol 20 mg daily as part of primary prophylaxis for esophageal varices with a history of bleeding in the past. 5. Upper endoscopy for re-evaluation of his esophageal varices is not indicated at this time, but would instead defer to an outpatient evaluation. We will continue to follow. Please call with any questions. Job ID: [id number]
[2020-05-14 03:47] LABS: #Eosinphils 0.1 thou/uL (0.0-0.7); #Lymphocytes 0.4 thou/uL (1.20-3.40); #Monocytes 0.8 thou/uL (0.11-0.59); #Neutrophils 4.4 thou/uL (1.40-6.50); %Basophils 0.6 % (0.0-1.0); %Eosinophils 2.5 % (0.0-10.0); %Lymphocytes 7.6 % (21.0-51.0); %Monocytes 13.1 % (0.0-10.0); %Neutrophils 76.1 % (42.0-75.0); Hemoglobin 10.7 g/dL (14.0-18.0); Mean Corpuscular HGB CONC 34.4 g/dL (32.0-36.0); Mean Corpuscular Hemoglobin 35.7 pg (27.0-31.0); Mean Platelet Volume 7.1 fL (7.4-10.4); Platelet Count 41 thou/uL (130-400); RBC Distribution Width 14.4 % (11.5-14.5); White Blood Cell (WBC) Count 5.7 thou/uL (4.8-10.8)
[2020-05-14 03:55] LABS: INR-International Normal Ratio 2.1; Prothrombin Time 23.5 sec (12.0-14.7)
[2020-05-14 04:07] LABS: Anion Gap 10 mmol/L (10-20); BUN (Urea Nitrogen) 8 mg/dL (8.9-20.6); Calc. Creatinine Clearance 165 mL/min (70-130); Calcium 7.5 mg/dL (7.8-10.44); Carbon Dioxide 28 mmol/L (22-29); Chloride 98 mmol/L (98-107); Estimated GFR-MDRD Greater than 90; Glucose 94 mg/dL (70-105); Potassium 3.3 mmol/L (3.5-5.1); Sodium 133 mmol/L (136-145)
[2020-05-14 04:13] LABS: Troponin I 0.011 ng/mL (< 0.028)
[2020-05-14 08:21] LABS: ALT (SGPT) 19 U/L (8-55); AST (SGOT) 62 U/L (5-34); Albumin 2.5 g/dL (3.5-5.0); Alkaline Phosphatase 107 U/L (40-110); Bilirubin, Direct 5.9 mg/dL (0.1-0.3); Bilirubin, Total 9.1 mg/dL (0.2-1.2); Protein, Total 6.9 g/dL (6.0-8.3)
[2020-05-14 08:30] LABS: RBC Count-Automated (BF) 3115 /cu.mm; WBC/Nucleated-Auto (BF) 63 uL
[2020-05-14 08:34] LABS: BF Color Yellow; Body Fluid Source Ascites Body Fluid; Clarity Hazy (Clear); Tube # EDTA
[2020-05-14] MEDS ORDERED: Potassium Chloride 20 MEQ TAB PO SCH (08:45)
[2020-05-14 09:04] LABS: Lymphocytes 24 %
[2020-05-14 09:05] LABS: BF Segmented Neutrophils 4 %; Cell Count Non Hematic 72 %
[2020-05-14] MEDS ORDERED: Phytonadione 10 MG/ML AMP PO SCH (10:00)
[2020-05-14] MEDS: Furosemide 40 MG TAB PO SCH (10:09)
[2020-05-14] MEDS: Spironolactone 100 MG TAB PO SCH (10:09)
[2020-05-14] MEDS: Folic Acid 1 MG TAB PO SCH (10:10)
[2020-05-14] MEDS: Nadolol 40 MG TAB PO SCH (10:10)
[2020-05-14] MEDS: Multivitamin W/ Minerals 1 TAB PO SCH (10:10)
[2020-05-14] MEDS: Pantoprazole 40 MG GRANULES PACKET PO SCH (10:11)
[2020-05-14] MEDS: Cyanocobalamin (Vitamin B-12) 1,000 MCG TAB PO SCH (10:17)
[2020-05-14] MEDS ORDERED: Diazepam 5 MG TAB PO SCH ×2 (14:45→16:00)
--- NOTE | 2020-05-14 15:04 | PDOC.EVN ---
Event Note - Event Note Event Note: Patient's PCP is Dr. Morro Pedersen. Discussed with [facility] residents, care transfered to [facility].
--- NOTE | 2020-05-14 15:37 | PDOC.FM ---
- Subjective Subjective: This patient's care was transferred to our service due to confusion of pt's PCP upon admission. Pt states he is feeling much better after his paracentesis yesterday. States he would really like to go home to see his kids. States he would leave for a couple hours and come back. Instructed him this was not an option and that he would have to leave AMA. Pt states that he will think about it for a while. Denies feeling like he is withdrawing but does not he has withdrawn in the past from alcohol. - Objective Vital Signs & Weight: Vital Signs (12 hours) Temp Pulse Resp BP BP Pulse Ox 05/14/20 14:12 104/61 05/14/20 11:53 98.2 F 82 18 108/68 99 05/14/20 08:00 98 F 84 18 110/62 97 05/14/20 04:00 98.8 F 86 18 97/56 L 98 Weight Weight 83.552 kg I&O: 05/13/20 05/14/20 05/15/20 06:59 06:59 06:59 Intake Total 2760 240 Balance 2760 240 Result Diagrams: 05/14/20 03:32 05/14/20 03:32 Phys Exam - Physical Examination Constitutional: NAD scleral icterus No respiratory distress distended, tympanic, non tender Musculoskeletal: no edema Neurological: moves all 4 limbs Psychiatric: A&O x 3 Deviation from normal: Appears restless, eager to return home Skin: no rash Deviation from normal: Mild jaundice Dx/Plan - Plan Plan: Alcoholic Cirrhosis with Symptomatic Ascites - Paracentesis yesterday - Dr. Williamson, GI, consulted - MELD 26 - ASE protocol prn - Pt considering AMA discharge today - Has been given alcohol cessation resources - Plan to trend LFT's Dispo: Inpatient, oncology. Plan for another 24 hours of observation through highest risk of withdrawal period. has called multiple times noting that when pt withdrawals he becomes aggressive making her fearful for his return. In this setting we feel it is unsafe for both pt and family for him to return at this time. We would also like to continue to trend his liver function following his recent paracentesis. Addendum - Attending - Attending Attestation Date/Time: 05/14/201934 I personally evaluated the patient and discussed the management with Dr. Moreno I agree with the History, Examination, Assessment and Plan documented above with any addition or exceptions noted below- Patient without crrhosisomplaints. Feels better after paracentesis. Afebrile VSS. A/P: 1) Ascites secondary to cirrhosis- continue current medications. 2) Alcoholic cirrhosis- no evidence of withrdrawal at this time; continue ASE protocol. 3) Hepatic encephalopathy- improved; continue lactulose. Anticipate d/c home in next 1-2 days.
[2020-05-14] MEDS ORDERED: Diazepam 5 MG TAB PO PRN (15:53)
[2020-05-14] MEDS ORDERED: Thiamine HCl 200 MG/2 ML VIAL IM SCH (16:00)
--- NOTE | 2020-05-14 17:31 | PRG ---
DATE OF SERVICE: REASON FOR CONSULTATION: Cirrhosis with new-onset ascites. SUBJECTIVE: Overnight, the patient did not have any acute events or problems. Today, he states that his abdominal pain continues to have been resolved, although he does continue to have significant abdominal distention. He had not received his diuretic medications this morning as of yet, so he did not have any increased urination with their administration. Otherwise, he denies any nausea, vomiting, fevers, chills, hematemesis, melena, hematochezia, dysphagia or odynophagia. OBJECTIVE: VITAL SIGNS: Temperature 98.2, pulse 82, blood pressure 104/61, respiratory rate 18, and saturating 99% on room air. GENERAL: The patient is lying in bed, in no acute distress. Alert and oriented x4. CARDIOVASCULAR: Regular rate and rhythm with a 3/6 systolic murmur best heard at the right upper sternal border. RESPIRATORY: Clear to auscultation bilaterally. ABDOMEN: Normoactive bowel sounds. Softer to palpation when compared to previous. Significant distention still noted, but no tenderness to palpation in any abdominal quadrant. EXTREMITIES: 1+ bilateral lower extremity edema extending up to the thigh. LABORATORY DATA: CBC with a white blood cell count of 5.7, hemoglobin 10.7, hematocrit 31.2, and platelets 41. INR 2.1. Chemistry with a sodium of 133, potassium 3.3, chloride 98, CO2 of 28, BUN 8, creatinine 0.74, and glucose 89. AST 62, ALT 19, alkaline phosphatase 107, and total bilirubin 9.1. MELD score calculation at 26. IMAGING DATA: No current GI imaging is available for review. ASSESSMENT AND PLAN: The patient is a 34-year-old male with past medical history of chronic hepatitis C infection, status post treatment, hypertension, and cirrhosis, complicated by esophageal varices and hepatic encephalopathy, now presenting with new-onset ascites and portal vein thrombosis, which appears to be chronic in nature. Abdominal ascites: The patient is presenting with a prior diagnosis of alcoholic cirrhosis, that had been complicated by esophageal varices, hepatic encephalopathy; however, despite recommendations to discontinue alcohol consumption, he has continued to do so, drinking approximately 10 beers per day. Over the last 2 months, he had been slowly having worsening abdominal distention with imaging on admission consistent with abdominal ascites. On evaluation of the paracentesis fluid, the segmented neutrophil count was not high enough to warrant a diagnosis of SBP, and with a total fluid protein of 1.5, this is most likely related to a transudative process indicative of portal hypertension. Recommendations: 1. The patient will likely need a repeat paracentesis here in the near future, but we would wait approximately 72 hours before repeating the procedure. 2. We will continue the patient on spironolactone 100 mg daily and furosemide 40 mg daily. 3. We stressed the adherence to a low-sodium/high-protein diet. 4. Fluid restriction is not needed. Lower extremity edema: The patient is presenting with increased lower extremity edema in association with his increasing abdominal distention, most likely from worsening liver failure and hypoalbuminemia. Recommendations: We will continue with the current diuretic management and continue to monitor renal function with diuretic administration. Alcoholic cirrhosis: The patient is presenting with a longstanding history of alcohol consumption and resultant cirrhosis, that is complicated by esophageal varices, hepatic encephalopathy, and now abdominal ascites and lower extremity edema. Currently, the patient is presenting with decompensated disease with a calculated MELD score of 26 and Child-Orozco classification C, most likely due to his recent/continued alcohol consumption. At this time, based on his current MELD score, the patient's 90-day mortality is approximately 25% to 30% indicative of a fairly poor prognosis if he does not abstain from alcohol consumption. His most recent EGD showed the presence of small esophageal varices, but were in the process of banding to eradication. He is currently on nadolol 20 mg daily as part of primary prophylaxis for esophageal varix bleeding. Recommendations: 1. We will continue to trend his LFTs and INR daily for signs of worsening hepatic function/hepatic failure. 2. Continue to monitor the patient for worsening hepatic encephalopathy as it may be a harbinger of worsening liver disease/function. 3. Continue the patient on lactulose 30 mL daily with a goal of having 3 to 4 semi-solid bowel movements per day. 4. Continue nadolol 20 mg daily as part of primary prophylaxis for esophageal varix rupture. 5. Anticoagulation is not indicated at this time for his portal vein thrombosis as chronic portal vein thrombosis is chronic with patients with cirrhosis. We will continue to follow. Please call with any questions. Job ID: [id number]
[2020-05-15] MEDS ORDERED: Diazepam 5 MG TAB PO PRN (04:00)
[2020-05-15] MEDS ORDERED: Diazepam 5 MG TAB PO SCH ×2 (04:00→08:15)
--- NOTE | 2020-05-15 07:40 | PDOC.FM ---
- Subjective Subjective: Overnight patient started having hallucinations and agitation. He was given Valium 10mg at around 0400. He continues to be confused this morning, nursing staff and security had to lucinda him outside and convince him to come back. Despite this behavior, he is easily convinced to take PO meds for agitation and non-violent. He otherwise has no tremors or VS abnormality. confirms last drink Sunday night and this is typical behavior for him when withdrawing. - Objective MAR Reviewed: Yes Vital Signs & Weight: Vital Signs (12 hours) Temp Pulse Resp BP BP Pulse Ox 05/15/20 04:00 98.1 F 84 20 99/61 97 05/15/20 02:15 92/55 L 05/14/20 23:52 98.1 F 78 16 92/55 L 97 Weight Weight 88.677 kg I&O: 05/14/20 05/15/20 05/16/20 06:59 06:59 06:59 Intake Total 2760 870 Balance 2760 870 Result Diagrams: 05/15/20 10:24 05/15/20 10:24 Phys Exam - Physical Examination confused but pleasant HEENT: PERRLA, moist MMs scleral icterus Respiratory: no wheezing, no rales, clear to auscultation bilateral Cardiovascular: RRR, no significant murmur Gastrointestinal: soft, non-tender distended but not taut, +fluid wave Musculoskeletal: no edema, pulses present Neurological: moves all 4 limbs Deviation from normal: AOx1 Dx/Plan (1) Cirrhosis Code(s): K74.60 - UNSPECIFIED CIRRHOSIS OF LIVER Status: Chronic Qualifiers: Hepatic cirrhosis type: alcoholic cirrhosis Ascites presence: with ascites Qualified Code(s): K70.31 - Alcoholic cirrhosis of liver with ascites (2) Alcohol abuse Code(s): F10.10 - ALCOHOL ABUSE, UNCOMPLICATED Status: Chronic (3) Chronic hepatitis C Code(s): B18.2 - CHRONIC VIRAL HEPATITIS C Status: Chronic Qualifiers: Hepatic coma status: without hepatic coma Qualified Code(s): B18.2 - Chronic viral hepatitis C (4) Portal vein thrombosis Code(s): I81 - PORTAL VEIN THROMBOSIS Status: Acute - Plan Plan: Decompensated Cirrhosis 2/2 Alcoholic Liver Disease and Chronic Hep C: - Paracentesis 05/13, improved abd pain - Dr. Williamson, GI, following, appreciat recs - MELD 25 - trend LFT's, coags, bili, downtrending - strict IOs and continue diuresis. - interested in palliative/hospice care. Will plan to get them involved when mind clears. Alcohol Withdrawal: - currently withdrawing it appears. - Start scheduled Serax taper and prn Ativan for ASE > 10 - Nursing staff to encourage pt to stay since he is not stable for d/c at this time. Portal Vein Thrombosis: - no anticoagulation indicated at this time. Anemia: - stable Dispo: Guarded at this time d/t withdrawal. Addendum - Attending - Attending Attestation Date/Time: 05/15/20 1230 I personally evaluated the patient and discussed the management with Dr. Baltazar I agree with the History, Examination, Assessment and Plan documented above with any addition or exceptions noted below - Patient hallucinating; has been redirectable at times. No tremor. Afebrile VSS. A/P: 1) Alcohol withdrawal syndrome- started on scheduled serax. Continue to monitor.
[2020-05-15] MEDS ORDERED: Lorazepam 2 MG/ML VIAL SLOW IVP PRN (08:04)
[2020-05-15] MEDS ORDERED: Diazepam 10 MG/2 ML SYRINGE IVP SCH (08:15)
[2020-05-15] MEDS: Spironolactone 100 MG TAB PO SCH (08:23)
[2020-05-15] MEDS: Furosemide 40 MG TAB PO SCH (08:23)
[2020-05-15] MEDS: Magnesium Oxide 400 MG TAB PO SCH (08:27)
[2020-05-15] MEDS: Multivitamin W/ Minerals 1 TAB PO SCH (08:28)
[2020-05-15] MEDS: Thiamine 100 MG TAB PO SCH (08:28)
[2020-05-15] MEDS: Folic Acid 1 MG TAB PO SCH (08:28)
[2020-05-15] MEDS: Potassium Chloride 20 MEQ TAB PO SCH (08:28)
[2020-05-15] MEDS: Nadolol 40 MG TAB PO SCH (08:29)
[2020-05-15] MEDS: Pantoprazole 40 MG GRANULES PACKET PO SCH (08:30)
[2020-05-15] MEDS ORDERED: Multivitamin W/ Minerals 1 TAB PO SCH (09:00)
[2020-05-15] MEDS ORDERED: Folic Acid 1 MG TAB PO SCH (09:00)
[2020-05-15] MEDS: Cyanocobalamin (Vitamin B-12) 1,000 MCG TAB PO SCH (09:03)
[2020-05-15 10:36] LABS: Hemoglobin 11.9 g/dL (14.0-18.0); Red Blood Cell (RBC) Count 3.25 mill/uL (4.70-6.10); White Blood Cell (WBC) Count 5.3 thou/uL (4.8-10.8)
[2020-05-15 10:53] LABS: ALT (SGPT) 28 U/L (8-55); AST (SGOT) 76 U/L (5-34); Albumin 2.8 g/dL (3.5-5.0); Alkaline Phosphatase 124 U/L (40-110); Anion Gap 10 mmol/L (10-20); BUN (Urea Nitrogen) 10 mg/dL (8.9-20.6); Bilirubin, Total 10.2 mg/dL (0.2-1.2); Calc. Creatinine Clearance 160 mL/min (70-130); Calcium 8.2 mg/dL (7.8-10.44); Carbon Dioxide 28 mmol/L (22-29); Chloride 97 mmol/L (98-107); Estimated GFR-MDRD Greater than 90; Globulin 5.2 g/dL (2.4-3.5); Glucose 120 mg/dL (70-105); Potassium 3.4 mmol/L (3.5-5.1); Sodium 132 mmol/L (136-145)
[2020-05-15 10:54] LABS: INR-International Normal Ratio 1.8; PTT 36.6 sec (22.9-36.1); Prothrombin Time 21.2 sec (12.0-14.7)
[2020-05-15 11:10] LABS: #Basophils 0.1 thou/uL (0.0-0.2); #Eosinphils 0.2 thou/uL (0.0-0.7); #Lymphocytes 0.4 thou/uL (1.20-3.40); #Monocytes 0.6 thou/uL (0.11-0.59); #Neutrophils 4.1 thou/uL (1.40-6.50); %Basophils 1.4 % (0.0-1.0); %Eosinophils 3.2 % (0.0-10.0); %Lymphocytes 7.3 % (21.0-51.0); %Neutrophils 76.2 % (42.0-75.0); MDiff Complete? YES; Macrocytosis SLIGHT = 6-15 cells (100X) (0-5/hpf); Mean Corpuscular HGB CONC 34.6 g/dL (32.0-36.0); Mean Corpuscular Hemoglobin 36.5 pg (27.0-31.0); Platelet Count 52 thou/uL (130-400); Rouleaux Formation SLIGHT = 1-5 cells (100X) (None Seen)
[2020-05-15] MEDS ORDERED: Oxazepam 10 MG CAP PO SCH (12:00)
--- NOTE | 2020-05-15 14:32 | EKG ---
Test Reason : HYPOKALEMIA Blood Pressure : / mmHG Vent. Rate : 105 BPM Atrial Rate : 105 BPM P-R Int : 180 ms QRS Dur : 094 ms QT Int : 392 ms P-R-T Axes : 078 016 -07 degrees QTc Int : 518 ms Sinus tachycardia T wave abnormality, consider inferior ischemia Abnormal ECG Confirmed by BARON OLSON ([id number]), content editor GURINDER PIERRE ([id number]) on 05/15/2020 2:31:31 PM Referred By: Confirmed By:BARON Xiao
[2020-05-15] MEDS: Lorazepam 1 MG TAB PO PRN (14:50)
--- NOTE | 2020-05-15 15:31 | PRG ---
DATE OF SERVICE: 05/15/2020 REASON FOR CONSULTATION: Cirrhosis with new-onset ascites. SUBJECTIVE: Per nursing staff, overnight, the patient started to exhibit visual hallucinations and was having "a conversation with his cousin in the next room." He was also noticed to be walking up and down the halls and trying doors to other patient rooms. When questioned on this, he said that "I was looking for an exit." Per his , who was at bedside today, the patient has been acting somewhat strange in addition to threatening to leave AMA. Per nursing staff and per the patient's , it is unclear whether the patient has capacity in order to make his own healthcare decisions as he is withdrawing from alcohol. Otherwise, the patient states that he is feeling well with no other problems. He currently denies any nausea, vomiting, fevers, chills, hematemesis, melena, hematochezia, abdominal pain, dysphagia or odynophagia. OBJECTIVE: VITAL SIGNS: Temperature 97.9, pulse 90, blood pressure 118/72, respiratory rate 18, and saturating 99% on room air. GENERAL: The patient was lying in bed, in no acute distress. Alert and oriented x3. CARDIOVASCULAR: Regular rate and rhythm with a 3/6 systolic murmur best heard at the right upper sternal border. RESPIRATORY: Clear to auscultation bilaterally. ABDOMEN: Normoactive bowel sounds. Soft, but not tense to palpation. Significant abdominal distention still noted. No tenderness to palpation in any abdominal quadrant. EXTREMITIES: 1+ bilateral lower extremity edema extending up to the midthigh. LABORATORY DATA: CBC with a white blood cell count of 5.3, hemoglobin of 11.1, hematocrit of 34.4, and platelets of 52. INR of 1.8. Chemistry with a sodium of 132, potassium of 3.4, chloride of 97, CO2 of 28, BUN of 10, creatinine of 0.81, and glucose of 120. AST of 76, ALT of 28, alkaline phosphatase of 124, and total bilirubin of 10.2. IMAGING DATA: No current GI imaging is available for review. ASSESSMENT AND PLAN: The patient is a 34-year-old male with past medical history of chronic hepatitis C infection status post treatment, hypertension, and cirrhosis complicated by esophageal varices and hepatic encephalopathy, now presenting with new-onset ascites and portal vein thrombosis. Abdominal ascites: The patient is presenting with a prior diagnosis of alcoholic cirrhosis, and despite strong recommendations to abstain from alcohol consumption, he has continued to do so in the outpatient setting, consuming approximately 10 beers per day. However, over the last 2 months, he has been slowly having worsening abdominal distention with imaging obtained during this admission consistent with abdominal ascites. On analysis of the paracentesis fluid, he does not have any evidence of SBP with the fluid also related more to portal hypertension. Recommendations: 1. Continue the patient on spironolactone 100 mg daily and furosemide 40 mg daily. 2. Continue low-sodium/high-protein diet. 3. Fluid restriction is not needed. 4. The patient may need a repeat paracentesis in the near future, we would base this according to response to diuretic management. Lower extremity edema: The patient is presenting with increased lower extremity edema in association with his increased abdominal distention, most likely from worsening liver failure and hypoalbuminemia. Recommendations: 1. We would continue diuretic management and low-sodium diet as stated above. Alcoholic cirrhosis: The patient is presenting with a longstanding history of alcohol consumption and resultant cirrhosis, complicated by esophageal varices, hepatic encephalopathy, and now abdominal ascites with lower extremity edema, currently presenting with decompensated disease with a calculated MELD score of 25 and Child-Orozco classification C. Given the recent onset of ascites and lower extremity edema, it is most likely due to his recent increased alcohol consumption. Based on his current MELD score, the patient's 90-day mortality is approximately 25% indicative of fairly poor prognosis if he does not abstain from alcohol, and while he has a history of esophageal varices on his most recent EGD, he is currently on nadolol 20 mg daily as part of primary prophylaxis for esophageal varix bleeding. Recommendations: 1. We would continue to trend his LFTs and INR daily for signs of worsening hepatic function/hepatic failure. 2. Continue to monitor the patient clinically for worsening hepatic encephalopathy. 3. Given the increased frequency of bowel movements the patient is having, I would decrease the lactulose to 20 g daily with a goal of having 3 to 4 semi-solid bowel movements per day. 4. Continue nadolol 20 mg daily as part of primary prophylaxis for esophageal varix rupture. 5. Given the chronic nature of his portal vein thrombosis, I would refrain from any anticoagulation. We will continue to follow. Please call with any questions. Job ID: [id number]
[2020-05-15] MEDS: Oxazepam 10 MG CAP PO SCH (17:53)
[2020-05-16] MEDS: Oxazepam 10 MG CAP PO SCH ×5 (05:12→23:14)
[2020-05-16 06:09] LABS: INR-International Normal Ratio 1.9; Prothrombin Time 21.7 sec (12.0-14.7)
[2020-05-16 06:31] LABS: ALT (SGPT) 26 U/L (8-55); AST (SGOT) 63 U/L (5-34); Albumin 2.4 g/dL (3.5-5.0); Alkaline Phosphatase 108 U/L (40-110); Anion Gap 12 mmol/L (10-20); BUN (Urea Nitrogen) 11 mg/dL (8.9-20.6); Calc. Creatinine Clearance 177 mL/min (70-130); Calcium 7.8 mg/dL (7.8-10.44); Carbon Dioxide 26 mmol/L (22-29); Chloride 98 mmol/L (98-107); Estimated GFR-MDRD Greater than 90; Globulin 4.6 g/dL (2.4-3.5); Glucose 99 mg/dL (70-105); Potassium 3.5 mmol/L (3.5-5.1); Sodium 132 mmol/L (136-145)
[2020-05-16 06:43] LABS: Band 2 % (5-11); Eosinophils 6 % (0-10); Hemoglobin 10.6 g/dL (14.0-18.0); Hypochromia SLIGHT = 6-15 cells (100X) (0-5/hpf); Lymphocytes 10 % (21-51); MDiff Complete? YES; Macrocytosis SLIGHT = 6-15 cells (100X) (0-5/hpf); Mean Corpuscular HGB CONC 33.7 g/dL (32.0-36.0); Mean Corpuscular Hemoglobin 35.6 pg (27.0-31.0); Mean Platelet Volume 6.9 fL (7.4-10.4); Monocytes 10 % (0-10); Neutrophil 72 % (42-75); Platelet Count 42 thou/uL (130-400); Platelet Morphology Comment Appears Decreased; RBC Distribution Width 15.1 % (11.5-14.5); Red Blood Cell (RBC) Count 2.97 mill/uL (4.70-6.10); White Blood Cell (WBC) Count 4.5 thou/uL (4.8-10.8)
--- NOTE | 2020-05-16 07:31 | PDOC.FM ---
- Subjective Subjective: Pt doing well this am. Did wander overnight but no hallucinations reported. He does have a small tremor this morning but VSS and not agitated at this time. Denies pain. Reports BM regular. - Objective MAR Reviewed: Yes Vital Signs & Weight: Vital Signs (12 hours) Temp Pulse Resp BP BP Pulse Ox 05/16/20 04:00 98.1 F 85 18 103/67 103/67 99 05/16/20 02:23 104/68 05/16/20 00:00 98.2 F 94 18 104/68 96 05/15/20 20:35 98 05/15/20 20:30 98.3 F 96 18 104/73 98 Weight Weight 88.677 kg I&O: 05/15/20 05/16/20 05/17/20 06:59 06:59 06:59 Intake Total 870 1180 Balance 870 1180 Result Diagrams: 05/16/20 05:48 05/16/20 05:48 Phys Exam - Physical Examination Constitutional: NAD HEENT: moist MMs scleral icterus Respiratory: no wheezing, no rales, clear to auscultation bilateral Cardiovascular: RRR, no significant murmur Gastrointestinal: soft, non-tender distended, +fluid wave, not taut at this time 2+ pitting edema b/l Neurological: moves all 4 limbs Psychiatric: A&O x 3 Skin: cap refill <2 seconds Dx/Plan (1) Cirrhosis Code(s): K74.60 - UNSPECIFIED CIRRHOSIS OF LIVER Status: Chronic Qualifiers: Hepatic cirrhosis type: alcoholic cirrhosis Ascites presence: with ascites Qualified Code(s): K70.31 - Alcoholic cirrhosis of liver with ascites (2) Alcohol abuse Code(s): F10.10 - ALCOHOL ABUSE, UNCOMPLICATED Status: Chronic (3) Chronic hepatitis C Code(s): B18.2 - CHRONIC VIRAL HEPATITIS C Status: Chronic Qualifiers: Hepatic coma status: without hepatic coma Qualified Code(s): B18.2 - Chronic viral hepatitis C (4) Portal vein thrombosis Code(s): I81 - PORTAL VEIN THROMBOSIS Status: Acute - Plan Plan: Mild Delirium Tremens: - Scheduled Serax taper in place and prn Ativan for ASE > 10, ASE q4h - Nursing staff to encourage pt to stay since he is not stable for d/c at this time. Decompensated Cirrhosis 2/2 Alcoholic Liver Disease and Chronic Hep C: - Paracentesis 05/13, improved abd pain - Dr. Williamson, GI, following, appreciat recs - MELD 25 - trend LFT's, coags, bili, downtrending - strict IOs and continue diuresis. - interested in palliative/hospice care. Consulted and plans for meeting on 05/17 with . Portal Vein Thrombosis: - no anticoagulation indicated at this time. Anemia: - stable Dispo: Guarded at this time d/t withdrawal. Addendum - Attending - Attending Attestation Date/Time: 05/16/20 1257 I personally evaluated the patient and discussed the management with Dr. Baltazar I agree with the History, Examination, Assessment and Plan documented above with any addition or exceptions noted below - Patient without complaints; no tremor noted. Afebrile VSS A/P: 1) Alcohol withdrawal syndrome - continue benzo taper; plan for palliative care consult tomorrow for possible hospice. 2) Alcoholic cirrhosis- stable
[2020-05-16] MEDS: Nadolol 40 MG TAB PO SCH (07:56)
[2020-05-16] MEDS: Potassium Chloride 20 MEQ TAB PO SCH (07:56)
[2020-05-16] MEDS: Furosemide 40 MG TAB PO SCH (07:57)
[2020-05-16] MEDS: Magnesium Oxide 400 MG TAB PO SCH (07:57)
[2020-05-16] MEDS: Multivitamin W/ Minerals 1 TAB PO SCH (07:57)
[2020-05-16] MEDS: Folic Acid 1 MG TAB PO SCH (07:57)
[2020-05-16] MEDS: Thiamine 100 MG TAB PO SCH (07:57)
[2020-05-16] MEDS: Cyanocobalamin (Vitamin B-12) 1,000 MCG TAB PO SCH (07:57)
[2020-05-16] MEDS: Pantoprazole 40 MG GRANULES PACKET PO SCH (07:59)
[2020-05-16] MEDS: Lorazepam 1 MG TAB PO PRN (08:28)
[2020-05-16] MEDS: Spironolactone 100 MG TAB PO SCH (14:27)
--- NOTE | 2020-05-16 19:41 | PRG ---
DATE OF SERVICE: 05/16/2020 REASON FOR CONSULTATION: Cirrhosis with new onset ascites. SUBJECTIVE: Per nursing staff, overnight the patient started to exhibit some abnormal behavior with auditory and visual hallucinations. Today, on my examination of the patient, he was visually hallucinating "a white car jumping from the parking lot to the road." The patient's sensorium seems to be fairly intact. However, he does clearly exhibit withdrawal type symptoms at this time. Otherwise, the patient states that he is feeling well with no other problems. He currently denies any nausea, vomiting, fevers, chills, hematemesis, melena, hematochezia, abdominal pain, dysphagia, or odynophagia. As part of lactulose administration, he has been having anywhere between 4 and 6 bowel movements over the last 24 to 48 hours. He has also been given the spironolactone and Lasix and has been having significant increased urinary output with it. OBJECTIVE: VITAL SIGNS: Temperature 97.9, pulse 79, blood pressure 101/58, respiratory rate 16, saturating 100% on room air. GENERAL: The patient was standing at bedside, in no acute distress. Alert and oriented x2. CARDIOVASCULAR: Regular rate and rhythm with a 3/6 systolic murmur, best heard at the right upper sternal border. RESPIRATORY: Clear to auscultation bilaterally. ABDOMEN: Normoactive bowel sounds, soft. Significant abdominal distention still noted. No tenderness to palpation in any abdominal quadrant. EXTREMITIES: 1+ bilateral lower extremity edema extending up to the bilateral knees. LABORATORY DATA: CBC with a white blood cell count of 4.5, hemoglobin 10.6, hematocrit 31.4, platelets 42. INR 1.9. Chemistry with a sodium of 132, potassium 3.5, chloride 98, CO2 of 26, BUN 11, creatinine 0.73, glucose 99, AST 63, ALT 26, alkaline phosphatase 108, total bilirubin 8.0. Calculated MELD score at 25. IMAGING DATA: No current GI imaging is available for review. ASSESSMENT AND PLAN: The patient is a 34-year-old male with past medical history of chronic hepatitis C infection, status post treatment; hypertension; and cirrhosis, complicated by esophageal varices and hepatic encephalopathy, now presenting with new onset ascites and portal vein thrombosis. 1. Abdominal ascites. The patient is now presenting with a prior diagnosis of cirrhosis that is now complicated by the presence of abdominal ascites. The patient underwent paracentesis during this admission and was negative for SBP and is currently responding well to diuretic management. Recommendations: a. Would continue the patient on spironolactone 100 mg daily and furosemide 40 mg daily. b. Continue low-sodium/high-protein diet. c. Would consider repeat paracentesis prior to discharge with albumin administration. 2. Lower extremity edema. The patient also presented with concurrent lower extremity edema in addition to his abdominal ascites, this is most likely due to worsening liver failure with hypoalbuminemia. Recommendations: a. Continue with diuretic management and low-sodium diet as stated above. 3. Alcoholic cirrhosis. The patient has a longstanding history of alcohol consumption and resultant cirrhosis complicated by esophageal varices, hepatic encephalopathy, and now abdominal ascites and lower extremity edema. Currently, he is presenting with decompensated disease with a calculated MELD score of 25 and Child-Orozco classification C. Based on his current MELD score of 25, the patient's 90-day mortality is approximately 25%, but is currently downtrending, which is hopeful for some hepatic recovery. He is currently on lactulose 30 g daily and having approximately 3 to 4 bowel movements a day which is at goal. With his history of esophageal varices and band ligation in the past, he is currently on nadolol 20 mg daily as part of primary prophylaxis for esophageal varix bleeding with his pulse currently just above goal (goal heart rate of 55 to 65 beats per minute). Recommendations: a. We will continue to trend his LFTs and INR daily for signs of worsening hepatic function. b. Continue patient on withdrawal protocol given his visual hallucinations and withdrawal symptoms at the current time. c. Continue the patient on lactulose 20 g daily with a goal of having 3 to 4 semi-solid bowel movements per day. d. Continue nadolol 20 mg daily as part of primary prophylaxis for esophageal varix rupture. This may need to be titrated as an outpatient. e. Would refrain from any anticoagulation of chronic portal vein thrombosis. We will continue to follow peripherally at this point as we have no further recommendations. We would have the patient follow up in the GI Clinic within 2 weeks after discharge. Please call with any questions. Job ID: [id number]
[2020-05-17] MEDS: Oxazepam 10 MG CAP PO SCH ×3 (05:36→18:59)
[2020-05-17 07:20] LABS: Hemoglobin 10.4 g/dL (14.0-18.0); Mean Corpuscular HGB CONC 33.5 g/dL (32.0-36.0); Mean Corpuscular Hemoglobin 35.5 pg (27.0-31.0); Mean Platelet Volume 7.3 fL (7.4-10.4); Platelet Count 49 thou/uL (130-400); RBC Distribution Width 15.1 % (11.5-14.5); Red Blood Cell (RBC) Count 2.93 mill/uL (4.70-6.10)
--- NOTE | 2020-05-17 08:00 | PDOC.FM ---
- Subjective Subjective: Pt states that he is feeling well this morning. No more hallucinations. Does not feel tremulous. Discussed possible repeat paracentesis prior to discharge. Pt is agreeable. States he has a planned repeat paracentesis in [place] in the coming weeks. - Objective Vital Signs & Weight: Vital Signs (12 hours) Temp Pulse Resp BP BP BP BP 05/17/20 07:16 98/60 05/17/20 07:11 98.1 F 75 18 98/60 05/17/20 03:30 97.7 F 83 16 103/70 05/16/20 20:00 97.7 F 83 20 105/69 105/69 Pulse Ox 05/17/20 07:16 05/17/20 07:11 97 05/17/20 03:30 99 05/16/20 20:00 96 Weight Weight 88.677 kg I&O: 05/16/20 05/17/20 05/18/20 06:59 06:59 06:59 Intake Total 1180 780 Balance 1180 780 Result Diagrams: 05/17/20 05:28 05/16/20 05:48 Phys Exam - Physical Examination Constitutional: NAD HEENT: moist MMs Scleral icterus Respiratory: clear to auscultation bilateral Cardiovascular: RRR Distended, positive fluid wave, non tender Neurological: moves all 4 limbs Psychiatric: normal affect, A&O x 3 Deviation from normal: Petechial rash Dx/Plan - Plan Plan: Mild Delirium Tremens: - Scheduled Serax taper in place and prn Ativan for ASE > 10, ASE q4h - ASE of 4 this a.m. - Has not required ativan over serax taper since yesterday morning - Likely at end of downtrend of withdrawal sx at this point Decompensated Cirrhosis 2/2 Alcoholic Liver Disease and Chronic Hep C: - Paracentesis 05/13, improved abd pain - Dr. Williamson, GI, following, appreciate recs - MELD 25 - trend LFT's, coags, bili, downtrending - strict IOs and continue diuresis. - interested in palliative/hospice care. Consulted and plans for meeting on 05/17 with . Portal Vein Thrombosis: - no anticoagulation indicated at this time. Anemia: - stable Dispo: Stable, inpt medical. Withdrawal monitoring and anai and prn benzo tx per ASE protocol. Hospice eval today through . Possible paracentesis later today.
[2020-05-17] MEDS: Pantoprazole 40 MG GRANULES PACKET PO SCH (09:08)
[2020-05-17] MEDS: Thiamine 100 MG TAB PO SCH (09:08)
[2020-05-17] MEDS: Multivitamin W/ Minerals 1 TAB PO SCH (09:08)
[2020-05-17] MEDS: Cyanocobalamin (Vitamin B-12) 1,000 MCG TAB PO SCH (09:09)
[2020-05-17] MEDS: Spironolactone 100 MG TAB PO SCH (09:09)
[2020-05-17] MEDS: Nadolol 40 MG TAB PO SCH (09:09)
[2020-05-17] MEDS: Furosemide 40 MG TAB PO SCH (09:10)
[2020-05-17] MEDS: Folic Acid 1 MG TAB PO SCH (09:10)
[2020-05-17] MEDS: Magnesium Oxide 400 MG TAB PO SCH (09:10)
[2020-05-17 11:01] LABS: Anisocytosis SLIGHT = 6-15 cells (100X) (0-5/hpf); Eosinophils 4 % (0-10); Lymphocytes 7 % (21-51); MDiff Complete? YES; Macrocytosis MODERATE=16-30 cells (100X) (0-5/hpf); Monocytes 8 % (0-10); Neutrophil 81 % (42-75); Platelet Morphology Comment Appears Decreased
--- NOTE | 2020-05-17 11:09 | CT ---
CT OF THE BRAIN WITHOUT CONTRAST: INDICATION: History of fall from bed. COMPARISON: Prior exam dated February 06, 2016. FINDINGS: The generalized cerebral and cerebellar atrophy is stable. No cute infarct, hemorrhage, or hydroceph alus is present. No midline shift is noted. Donovan cisterna magna is similar-appearing. The mastoid air cells and paranasal sinuses are clear. The skull is intact. IMPRESSION: No acute intracranial abnormality demonstrated. POS: BH
--- NOTE | 2020-05-17 12:15 | PRG ---
DATE OF SERVICE: 05/17/2020 Mr. Carnes is a 34-year-old male with a long history of heavy alcohol abuse. He has recently been diagnosed with cirrhosis and has developed ascites as well as some peripheral edema that prompted his visit to the ER. He has had one paracentesis and will likely undergo another one today or tomorrow. In the event, he continues to drink and his prognosis remains dismal. We appreciate input from the GI Service. We will continue to treat and manage his ascites with a combination of Lasix and spironolactone. He is also on nadolol for varices. Job ID: [id number]
[2020-05-17] MEDS ORDERED: Sodium Bicarbonate 2.5 MEQ/5 ML VIAL ONE (13:26)
[2020-05-17] MEDS ORDERED: Lidocaine 1% PF 5 ML VIAL ONE (13:26)
--- NOTE | 2020-05-17 14:35 | ULT ---
Exam: Ultrasound guided paracentesis HISTORY: Ascites COMPARISON: 05/13/2020 FINDINGS: Successful ultrasound-guided paracentesis. Total of 7 L of dark yellow ascites was aspirate d. TECHNIQUE: Consent obtained reformatory ultrasound-guided paracentesis. Left lower quadrantwas deemed appropriate. Skin was prepped and draped in a sterile fashion. 1% lidocaine, buffered with sodium bicarbonate was used for local anesthesia. Under ultrasound guidance, a 5 Armenian 7 cm Spaseeboeh catheter i s advanced in the peritoneal space. A total of 7 L of dark yellow ascites was aspirated. No immediate or postprocedural complications IMPRESSION: Successful ultrasound-guided paracentesis.
[2020-05-17 16:11] LABS: RBC Count-Automated (BF) 1487 /cu.mm; WBC/Nucleated-Auto (BF) 134 uL
[2020-05-17 16:42] LABS: BF Color Yellow; Body Fluid Source Ascites Body Fluid; Clarity Hazy (Clear); Tube # EDTA
[2020-05-17 16:44] LABS: Cell Count Non Hematic 46 %
[2020-05-17 16:45] LABS: BF Segmented Neutrophils 2 %; Lymphocytes 52 %
[2020-05-18] MEDS: Oxazepam 10 MG CAP PO SCH ×4 (00:41→17:58)
[2020-05-18 06:22] LABS: ALT (SGPT) 28 U/L (8-55); AST (SGOT) 64 U/L (5-34); Albumin 2.2 g/dL (3.5-5.0); Alkaline Phosphatase 114 U/L (40-110); Anion Gap 9 mmol/L (10-20); BUN (Urea Nitrogen) 11 mg/dL (8.9-20.6); Bilirubin, Total 6.6 mg/dL (0.2-1.2); Calc. Creatinine Clearance 175 mL/min (70-130); Calcium 7.9 mg/dL (7.8-10.44); Carbon Dioxide 28 mmol/L (22-29); Chloride 102 mmol/L (98-107); Estimated GFR-MDRD Greater than 90; Globulin 4.5 g/dL (2.4-3.5); Glucose 80 mg/dL (70-105); Protein, Total 6.7 g/dL (6.0-8.3); Sodium 135 mmol/L (136-145)
--- NOTE | 2020-05-18 07:58 | PDOC.FM ---
- Subjective Subjective: Pt very sleepy this morning. Denies any complaints. Tolaterated paracentesis well yesterday. No events overnight. Sitter in place. - Objective Vital Signs & Weight: Vital Signs (12 hours) Temp Pulse Resp BP BP BP Pulse Ox 05/18/20 07:16 98.2 F 74 18 91/59 L 97 05/17/20 20:00 104/76 100 05/17/20 19:55 98.1 F 86 20 104/76 100 Weight Weight 88.677 kg I&O: 05/17/20 05/18/20 05/19/20 06:59 06:59 06:59 Intake Total 780 Balance 780 Result Diagrams: 05/17/20 05:28 05/18/20 05:31 Phys Exam - Physical Examination Constitutional: NAD scleral icterus Neck: full ROM Respiratory: clear to auscultation bilateral Cardiovascular: RRR Distended, non tender Musculoskeletal: no edema Neurological: moves all 4 limbs Deviation from normal: Flat affect, oriented to person and place Dx/Plan - Plan Plan: Mild Delirium Tremens: - Scheduled Serax taper in place and prn Ativan - ASE of 1 this a.m. - Has not required prn ativan in last 2 days - Serax reduced to 10mg q6hr today Decompensated Cirrhosis 2/2 Alcoholic Liver Disease and Chronic Hep C: - Paracentesis 05/13, improved abd pain, repeated on 05/17, 7L each time - Fluid analysis appears to be 2/2 to portal htn, SAAG 1.6 - Has some soft blood pressures this morning, 35g of 25% albumin ordered this morning - Dr. Williamson, GI, following, appreciate recs - MELD 25, decreasing since admission - trend LFT's, coags, bili, downtrending - strict IOs and continue diuresis. Discharge planning - pt deemed unfit to return home due to aggression and minors in the house - MR saw yesterday and filled out safety plan, did not meet criteria for inpt psych - Palliative and CM consulting for assistance, helping to direct care Portal Vein Thrombosis: - no anticoagulation indicated at this time. Anemia: - stable Dispo: Stable, inpt medical. Withdrawal monitoring and anai and prn benzo tx per ASE protocol. coordinating with hospice and CM regarding discharge planning. Addendum - Attending - Attending Attestation Date/Time: 05/18/20 7243 I personally evaluated the patient and discussed the management with Dr. Moreno. I agree with the History, Examination, Assessment and Plan documented above with any addition or exceptions noted below. Patient without complaint this morning. Continue treatment for EtOH withdrawals. Working with hospice and PC to help with outpatient care but overall nearing stability for discharge.
[2020-05-18] MEDS ORDERED: Albumin 25% 25 GM/100 ML BOT IVPB SCH (08:05)
[2020-05-18] MEDS: Magnesium Oxide 400 MG TAB PO SCH (08:16)
[2020-05-18] MEDS: Folic Acid 1 MG TAB PO SCH (08:16)
[2020-05-18] MEDS: Thiamine 100 MG TAB PO SCH (08:16)
[2020-05-18] MEDS: Spironolactone 100 MG TAB PO SCH (08:16)
[2020-05-18] MEDS: Furosemide 40 MG TAB PO SCH (08:16)
[2020-05-18] MEDS: Multivitamin W/ Minerals 1 TAB PO SCH (08:16)
[2020-05-18] MEDS: Cyanocobalamin (Vitamin B-12) 1,000 MCG TAB PO SCH (08:16)
[2020-05-18] MEDS: Nadolol 40 MG TAB PO SCH (08:16)
[2020-05-18] MEDS: Pantoprazole 40 MG GRANULES PACKET PO SCH (08:17)
[2020-05-19] MEDS: Oxazepam 10 MG CAP PO SCH ×2 (00:06→05:36)
--- NOTE | 2020-05-19 06:55 | PDOC.FM ---
- Subjective Subjective: Pt denies any complaints this morning. Up in chair eating breakfast. Sitter present in room. Denies any events overnight. Discussed that pt is medically cleared for discharge but are awaiting placement arrangements. He expressed understanding of this. - Objective Vital Signs & Weight: Vital Signs (12 hours) Temp Pulse Resp BP BP BP Pulse Ox 05/19/20 04:04 99.4 F 76 18 92/52 L 94 L 05/19/20 04:00 92/52 L 05/19/20 00:00 94/58 L 05/18/20 23:48 98.1 F 79 18 94/58 L 95 05/18/20 20:00 115/77 05/18/20 19:21 98.1 F 74 18 115/77 99 Weight Weight 88.677 kg I&O: 05/17/20 05/18/20 05/19/20 06:59 06:59 06:59 Intake Total 780 1360 Balance 780 1360 Result Diagrams: 05/19/20 06:57 05/19/20 06:57 Phys Exam - Physical Examination Constitutional: NAD Mild scleral icterus Respiratory: clear to auscultation bilateral Cardiovascular: RRR Gastrointestinal: soft, non-tender Distended Musculoskeletal: no edema, pulses present Neurological: moves all 4 limbs Deviation from normal: Flat affect Dx/Plan - Plan Plan: Mild Delirium Tremens: - Scheduled Serax taper in place and prn Ativan - Serax reduced to 10mg q6hr today Decompensated Cirrhosis 2/2 Alcoholic Liver Disease and Chronic Hep C: - Paracentesis 05/13, improved abd pain, repeated on 05/17, 7L each time - Fluid analysis appears to be 2/2 to portal htn, SAAG 1.6 - Dr. Williamson, GI, following, appreciate recs - strict IOs and continue diuresis - MELD: Discharge planning - pt deemed unfit to return home due to aggression and minors in the house - [facility] saw and filled out safety plan, did not meet criteria for inpt psych - Palliative and CM consulting for assistance, helping to direct care - called this morning stating that she would like CM to look for skilled placement rather than home hospice Portal Vein Thrombosis: - no anticoagulation indicated at this time. Anemia: - stable Dispo: Stable, inpt medical. Withdrawal monitoring and anai and prn benzo tx per ASE protocol. coordinating with hospice and CM regarding discharge planning. Addendum - Attending - Attending Attestation Date/Time: 05/19/20 1020 I personally evaluated the patient and discussed the management with Dr. Moreno. I agree with the History, Examination, Assessment and Plan documented above with any addition or exceptions noted below. Patient stable, no complaints. Working on getting hospice set up for him at home. Continue Serax for alcohol withdrawal symptoms. His life is extremely limited if he does not quit drinking alcohol, which he has indicated will not occur.
[2020-05-19 07:19] LABS: Hemoglobin 10.9 g/dL (14.0-18.0); Mean Corpuscular Hemoglobin 35.9 pg (27.0-31.0); Mean Platelet Volume 7.1 fL (7.4-10.4); Platelet Count 45 thou/uL (130-400); Red Blood Cell (RBC) Count 3.05 mill/uL (4.70-6.10); White Blood Cell (WBC) Count 3.9 thou/uL (4.8-10.8)
[2020-05-19 07:32] LABS: ALT (SGPT) 31 U/L (8-55); AST (SGOT) 67 U/L (5-34); Albumin 2.5 g/dL (3.5-5.0); Alkaline Phosphatase 116 U/L (40-110); Anion Gap 11 mmol/L (10-20); BUN (Urea Nitrogen) 12 mg/dL (8.9-20.6); Bilirubin, Total 5.9 mg/dL (0.2-1.2); Calc. Creatinine Clearance 177 mL/min (70-130); Calcium 8.2 mg/dL (7.8-10.44); Carbon Dioxide 27 mmol/L (22-29); Chloride 103 mmol/L (98-107); Estimated GFR-MDRD Greater than 90; Globulin 4.4 g/dL (2.4-3.5); Glucose 82 mg/dL (70-105); Magnesium 1.5 mg/dL (1.6-2.6); Phosphorus 3.6 mg/dL (2.3-4.7); Protein, Total 6.9 g/dL (6.0-8.3); Sodium 137 mmol/L (136-145)
[2020-05-19 07:35] VITALS: BP 100/66; TEMP 98.1
[2020-05-19] MEDS: Spironolactone 100 MG TAB PO SCH (08:54)
[2020-05-19] MEDS: Furosemide 40 MG TAB PO SCH (08:54)
[2020-05-19] MEDS: Cyanocobalamin (Vitamin B-12) 1,000 MCG TAB PO SCH (08:54)
[2020-05-19] MEDS: Folic Acid 1 MG TAB PO SCH (08:54)
[2020-05-19] MEDS: Pantoprazole 40 MG GRANULES PACKET PO SCH (08:55)
[2020-05-19] MEDS: Multivitamin W/ Minerals 1 TAB PO SCH (08:55)
[2020-05-19] MEDS: Nadolol 40 MG TAB PO SCH (08:55)
[2020-05-19] MEDS: Thiamine 100 MG TAB PO SCH (08:55)
[2020-05-19] MEDS: Magnesium Oxide 400 MG TAB PO SCH (08:55)
[2020-05-19 09:08] LABS: PTT 38.8 sec (22.9-36.1); Prothrombin Time 22.9 sec (12.0-14.7)
[2020-05-19 09:50] LABS: Band 17 % (5-11); Eosinophils 5 % (0-10); Lymphocytes 14 % (21-51); MDiff Complete? YES; Monocytes 12 % (0-10); Neutrophil 49 % (42-75); Platelet Morphology Comment Appears Decreased; Polychromasia SLIGHT = 2-3 cells (100X) (0-2/hpf)
[2020-05-19] MEDS ORDERED: Oxazepam 10 MG CAP PO SCH (14:00)
== END 2020-05-19 15:53 | disposition hospice, inpatient (51) | DRG 432 ==
LOC: ERS 14:29 → ONC 21:43 → OBSVTOIN 05-13 13:16 → T4-A 05-15 20:43
PROVIDERS: ADMIT Internal Medicine; ATTEND Student in an Organized Health Care Education/Training Program
PROC: 0W9G3ZZ Drainage of Peritoneal Cavity, Percutaneous Approach (ICD-10-PCS; principal; 2020-05-13)
PROC: 30233R1 Transfusion of Nonautologous Platelets into Peripheral Vein, Percutaneous Approach (ICD-10-PCS; 2020-05-13)
PROC: 0W9G3ZZ Drainage of Peritoneal Cavity, Percutaneous Approach (ICD-10-PCS; 2020-05-17)
DX: K70.31 Alcoholic cirrhosis of liver with ascites (principal); I81 Portal vein thrombosis; E87.1 Hypo-osmolality and hyponatremia; D68.4 Acquired coagulation factor deficiency; D61.818 Other pancytopenia; I85.10 Secondary esophageal varices without bleeding; R44.3 Hallucinations, unspecified; F10.231 Alcohol dependence with withdrawal delirium; K72.90 Hepatic failure, unspecified without coma; I10 Essential (primary) hypertension; F17.210 Nicotine dependence, cigarettes, uncomplicated; D69.6 Thrombocytopenia, unspecified; B18.2 Chronic viral hepatitis C; Z79.899 Other long term (current) drug therapy
CPT/HCPCS: 36415; 36416; 36430; 49083; 70450; 71045; 71046; 74177; 76705; 80048; 80053; 80076; 81003; 82042; 82140; 82607; 82746; 83690; 83735; 83880; 84100; 84155; 84157; 84484; 85025; 85060; 85610; 85730; 86850; 86900; 86901; 87070; 87205; 89051; 93005; 96365; 96366; 96368; 96374; 96375; G0378; J2001; J2270; J3430; J3475; J3480; J3490; J7030; P9035; P9047

== ENCOUNTER 2020-06-04 08:09 | Emergency (ER) | payer MEDICARE ==
[2020-06-04 09:20] LABS: #Eosinphils 0.3 thou/uL (0.0-0.7); #Lymphocytes 0.5 thou/uL (1.20-3.40); #Monocytes 0.7 thou/uL (0.11-0.59); #Neutrophils 4.9 thou/uL (1.40-6.50); %Basophils 0.6 % (0.0-1.0); %Eosinophils 4.4 % (0.0-10.0); %Lymphocytes 8.1 % (21.0-51.0); %Monocytes 10.3 % (0.0-10.0); %Neutrophils 76.6 % (42.0-75.0); Hemoglobin 10.8 g/dL (14.0-18.0); Mean Corpuscular HGB CONC 34.2 g/dL (32.0-36.0); Mean Corpuscular Hemoglobin 35.5 pg (27.0-31.0); Mean Platelet Volume 7.8 fL (7.4-10.4); Platelet Count 88 thou/uL (130-400); RBC Distribution Width 13.7 % (11.5-14.5); Red Blood Cell (RBC) Count 3.05 mill/uL (4.70-6.10); White Blood Cell (WBC) Count 6.4 thou/uL (4.8-10.8)
[2020-06-04 09:21] LABS: MDiff Complete? YES
[2020-06-04 09:29] LABS: ALT (SGPT) 27 U/L (8-55); AST (SGOT) 49 U/L (5-34); Albumin 2.5 g/dL (3.5-5.0); Alkaline Phosphatase 103 U/L (40-110); Anion Gap 11 mmol/L (10-20); BUN (Urea Nitrogen) 17 mg/dL (8.9-20.6); Bilirubin, Total 7.9 mg/dL (0.2-1.2); Calc. Creatinine Clearance 0 mL/min (70-130); Carbon Dioxide 21 mmol/L (22-29); Chloride 102 mmol/L (98-107); Estimated GFR-MDRD 81; Globulin 5.1 g/dL (2.4-3.5); Glucose 171 mg/dL (70-105); Protein, Total 7.6 g/dL (6.0-8.3); Sodium 130 mmol/L (136-145)
[2020-06-04] MEDS ORDERED: Albumin 25% 25 GM/100 ML BOT IVPB SCH (11:15)
[2020-06-04 11:36] LABS: RBC Count-Automated (BF) 720 /cu.mm; WBC/Nucleated-Auto (BF) 240 uL
[2020-06-04 11:51] LABS: Body Fluid Source Ascites Body Fluid; Clarity Hazy (Clear); Tube # EDTA
[2020-06-04 11:52] LABS: BF Color Yellow
[2020-06-04 11:54] LABS: BF Segmented Neutrophils 42 %; Cell Count Non Hematic 39 %; Lymphocytes 19 %
== END 2020-06-04 14:15 | disposition home or self-care (01) ==
LOC: ERS 08:09
DX: K70.31 Alcoholic cirrhosis of liver with ascites (principal); I10 Essential (primary) hypertension; Z79.899 Other long term (current) drug therapy; Z87.891 Personal history of nicotine dependence
CPT/HCPCS: 49083; 80053; 82945; 83615; 85025; 87070; 87205; 89051; 96365; 96366; 99284; P9047; 85060

== ENCOUNTER 2020-06-10 07:50 | Day surgery (SDC) | payer MEDICARE ==
[2020-06-10] MEDS ORDERED: Sodium Bicarbonate 2.5 MEQ/5 ML VIAL ONE (08:10)
[2020-06-10] MEDS ORDERED: Lidocaine 1% PF 5 ML VIAL ONE (08:11)
[2020-06-10] MEDS ORDERED: Albumin 25% 200 ML ONE (08:25)
[2020-06-10 09:35] VITALS: BMI 30.7
[2020-06-10 09:36] VITALS: BP 121/65; TEMP 98.6
[2020-06-10 10:53] LABS: RBC Count-Automated (BF) 1063 /cu.mm; WBC/Nucleated-Auto (BF) 914 uL
[2020-06-10 10:54] LABS: BF Color Yellow; Body Fluid Source Ascites Body Fluid; Clarity Hazy (Clear); Tube # EDTA
--- NOTE | 2020-06-10 11:00 | ULT ---
Sonographic guided paracentesis HISTORY: Recurrent ascites. FINDINGS: After explaining the procedure and answering all questions, sonographic survey shows large amount of free fluid throughout the abdomen. Sterile technique, buffered local anesthesia, sonographic guidance, and a right lateral approach were used to carefully advance a 19-gauge Yueh needle and catheter into the free fluid. Catheter was left to drain a total volume of 8.0 L arnie liquid. Catheter was removed with large amou nt of fluid remaining. Patient tolerated procedure well and was dismissed in good condition. IMPRESSION : Technically successful sonographic guided paracentesis. 8 L removed with large amount of fluid remain ing.
[2020-06-10 12:13] LABS: BF Segmented Neutrophils 19 %; Cell Count Non Hematic 74 %; Lymphocytes 7 %
== END 2020-06-10 09:15 | disposition home or self-care (01) ==
LOC: ULT 07:50
PROVIDERS: ATTEND Internal Medicine Gastroenterology
PROC: 0W9G3ZZ Drainage of Peritoneal Cavity, Percutaneous Approach (ICD-10-PCS; principal; 2020-06-10)
DX: K70.31 Alcoholic cirrhosis of liver with ascites (principal); I85.10 Secondary esophageal varices without bleeding; I10 Essential (primary) hypertension; D64.9 Anemia, unspecified; Z79.899 Other long term (current) drug therapy; Z87.891 Personal history of nicotine dependence; Z91.018 Allergy to other foods
CPT/HCPCS: 49083; 84155; 85060; 87070; 87205; 88112; 88305; 89051; P9047

== ENCOUNTER 2020-06-25 05:19 | Outpatient (CLI) | payer MEDICARE, OTHER ==
[2020-06-25 17:19] LABS: SARS-CoV-2 MS2 Positive; SARS-CoV-2 N Gene Negative; SARS-CoV-2 S Gene Negative; SARS-CoV-2 by NAA Not Detected (NotDetected); SARS-CoV-2 orf1ab Negative
== END 2020-06-25 05:20 | disposition home or self-care (01) ==
LOC: LABBT 05:19
PROVIDERS: ATTEND Physician Assistant Medical
DX: Z01.812 Encounter for preprocedural laboratory examination (principal); Z11.59 Encounter for screening for other viral diseases; K70.31 Alcoholic cirrhosis of liver with ascites; D64.9 Anemia, unspecified; K42.9 Umbilical hernia without obstruction or gangrene
CPT/HCPCS: 87635; U0003

== ENCOUNTER 2020-06-29 07:14 | Day surgery (SDC) | payer MEDICARE ==
[2020-06-24 11:20] VITALS: BMI 24.3
--- NOTE | 2020-06-29 10:26 | OP ---
DATE OF PROCEDURE: 06/29/2020 PROCEDURE PERFORMED: Esophagogastroduodenoscopy with banding of esophageal varices. PREOPERATIVE DIAGNOSIS: Esophageal varices. DESCRIPTION OF PROCEDURE: Informed consent was obtained from the patient. He was sedated with total intravenous anesthesia. The endoscope was advanced easily to the second portion of the duodenum. The duodenum was normal. The stomach had erosive gastritis in the antrum and severe portal hypertensive gastropathy throughout. Did not have obvious gastric varices. The Z-line appears regular and is at the GE junction at the diaphragmatic pinch. There was a ring of scar around the distal esophagus from previous banding. The GE junction was at 40 cm. There was a grade 2 varix at 35 cm, which was banded x1. There were no other significant varices. IMPRESSION: 1. Severe portal hypertensive gastropathy with erosive antral gastritis. 2. One grade 2 varix at 5 cm above the gastroesophageal junction, which was banded. There was a ring of scar from previous banding around the more distal esophagus. RECOMMENDATIONS: 1. Follow up in the office in a month. 2. Continue proton pump inhibitor. Job ID: [id number]
[2020-06-29] MEDS ORDERED: EPHEDRINE 25 MG/5 ML SYRINGE ONE (10:42)
[2020-06-29] MEDS ORDERED: PROPOFOL 200 MG/20 ML VIAL ONE (10:42)
[2020-06-29] MEDS ORDERED: Lidocaine 1% PF 5 ML VIAL ONE (10:42)
== END 2020-06-29 11:31 | disposition home or self-care (01) ==
LOC: SDC 07:14
PROVIDERS: ATTEND Internal Medicine Gastroenterology
PROC: 06L38CZ Occlusion of Esophageal Vein with Extraluminal Device, Via Natural or Artificial Opening Endoscopic (ICD-10-PCS; principal; 2020-06-29)
DX: K70.31 Alcoholic cirrhosis of liver with ascites (principal); I85.10 Secondary esophageal varices without bleeding; K76.6 Portal hypertension; K31.89 Other diseases of stomach and duodenum; K29.60 Other gastritis without bleeding; D64.9 Anemia, unspecified; K42.9 Umbilical hernia without obstruction or gangrene; Z87.891 Personal history of nicotine dependence; Z79.1 Long term (current) use of non-steroidal anti-inflammatories (NSAID); Z79.899 Other long term (current) drug therapy; Z91.018 Allergy to other foods
CPT/HCPCS: J2704

== ENCOUNTER 2020-08-05 07:15 | Day surgery (SDC) | payer MEDICARE ==
[2020-08-05] MEDS ORDERED: Sodium Bicarbonate 2.5 MEQ/5 ML VIAL ONE (07:57)
[2020-08-05] MEDS ORDERED: Lidocaine 1% PF 5 ML VIAL ONE (07:57)
[2020-08-05 08:05] LABS: INR-International Normal Ratio 2.1; Prothrombin Time 23.3 sec (12.0-14.7)
[2020-08-05 08:06] LABS: PTT 46.7 sec (22.9-36.1)
[2020-08-05] MEDS ORDERED: Albumin 25% 200 ML ONE (09:52)
--- NOTE | 2020-08-05 09:52 | ULT ---
Ultrasound-guided paracentesis: 08/05/2020 HISTORY: Symptomatic ascites FINDINGS: Informed consent obtained prior to the procedure. Preprocedural imaging demonstrated signif icant ascites throughout the abdomen and pelvis. Right lower quadrantprepped and draped in normal sterile fashion and anesthetized with 1% buffered li docaine. With direct sonographic guidance, 5 [place] Yueh catheter is advanced into the ascites and removal of the stylet yielded yellowfluid. 16 L were removed. The patient tolerated the procedure well. No postprocedural complications. IMPRESSION: Successful ultrasound-guided paracentesis yielding 16 L of yellow fluid.
[2020-08-05 10:01] VITALS: BMI 30.7
[2020-08-05 10:02] VITALS: BP 102/63; TEMP 98.2
== END 2020-08-05 09:40 | disposition home or self-care (01) ==
LOC: ULT 07:15
PROVIDERS: ATTEND Physician Assistant Medical
PROC: 0W9G3ZZ Drainage of Peritoneal Cavity, Percutaneous Approach (ICD-10-PCS; principal; 2020-08-05)
PROC: BW40ZZZ Ultrasonography of Abdomen (ICD-10-PCS; 2020-08-05)
DX: K70.31 Alcoholic cirrhosis of liver with ascites (principal); K72.90 Hepatic failure, unspecified without coma; I10 Essential (primary) hypertension; F10.11 Alcohol abuse, in remission; K42.9 Umbilical hernia without obstruction or gangrene; Z87.891 Personal history of nicotine dependence; Z79.899 Other long term (current) drug therapy; Z91.018 Allergy to other foods
CPT/HCPCS: 49083; 85610; 85730; P9047; 36415

== ENCOUNTER 2020-08-11 20:37 | Inpatient (IN) | payer MEDICARE, OTHER ==
[2020-08-11 21:24] LABS: Hemoglobin 9.3 g/dL (14.0-18.0); Mean Corpuscular HGB CONC 34.2 g/dL (32.0-36.0); Mean Corpuscular Hemoglobin 32.5 pg (27.0-31.0); RBC Distribution Width 12.5 % (11.5-14.5); Red Blood Cell (RBC) Count 2.87 mill/uL (4.70-6.10); White Blood Cell (WBC) Count 5.3 thou/uL (4.8-10.8)
[2020-08-11 21:25] LABS: #Eosinphils 0.2 thou/uL (0.0-0.7); #Lymphocytes 0.7 thou/uL (1.20-3.40); #Monocytes 0.5 thou/uL (0.11-0.59); #Neutrophils 3.8 thou/uL (1.40-6.50); %Basophils 0.7 % (0.0-1.0); %Lymphocytes 13.7 % (21.0-51.0); %Monocytes 9.1 % (0.0-10.0); %Neutrophils 72.7 % (42.0-75.0); Burr Cells SLIGHT = 2-5 cells (100X) (0-1/hpf); MDiff Complete? YES; Mean Platelet Volume 7.7 fL (7.4-10.4); Platelet Count 55 thou/uL (130-400); Platelet Morphology Comment Appears Decreased
[2020-08-11 21:27] LABS: ALT (SGPT) 15 U/L (8-55); AST (SGOT) 27 U/L (5-34); Albumin 2.7 g/dL (3.5-5.0); Alkaline Phosphatase 68 U/L (40-110); Anion Gap 14 mmol/L (10-20); BUN (Urea Nitrogen) 29 mg/dL (8.9-20.6); Bilirubin, Total 3.3 mg/dL (0.2-1.2); Calc. Creatinine Clearance 0 mL/min (70-130); Calcium 7.9 mg/dL (7.8-10.44); Carbon Dioxide 15 mmol/L (22-29); Chloride 108 mmol/L (98-107); Estimated GFR-MDRD 56; Glucose 106 mg/dL (70-105); Potassium 4.6 mmol/L (3.5-5.1); Protein, Total 6.7 g/dL (6.0-8.3); Sodium 132 mmol/L (136-145)
[2020-08-11 21:32] LABS: Prothrombin Time 22.4 sec (12.0-14.7)
[2020-08-11 21:33] LABS: PTT 42.7 sec (22.9-36.1)
--- NOTE | 2020-08-11 21:43 | CT ---
CT BRAIN WITHOUT CONTRAST: 08/11/20 HISTORY: Altered mental status. COMPARISON: 05/17/20. Changes of diffuse atrophy are again seen. The ventricular size is stable and the basilar cisterns pa tent. Donovan cisterna magna is stable. No evidence of acute infarct, hemorrhage, midline shift or abnor mal extra-axial fluid collections are seen. The bony calvarium is intact. The visualized paranasal si nuses and mastoid air cells are well aerated. IMPRESSION: No CT evidence of acute intracranial process. POS: MZA
--- NOTE | 2020-08-11 21:43 | RAD ---
Portable frontal chest radiograph: 08/11/2020 COMPARISON: 05/12/2020 HISTORY: Altered mental status, hepatic cirrhosis FINDINGS: Shallow inspiration noted. Heart and mediastinal contours are stable. No pneumothorax, pleu ral fluid, focal consolidation, or alveolar edema. IMPRESSION: No acute findings.
[2020-08-11 21:48] LABS: Base Excess-Venous -5.6 mmol/L (-2.0 to 3.0); Bicarbonate (HCO3v) 15.6 mmol/L (22.0-28.0); CO2 Tension (PvCO2) 18.1 mmHg (40.0-50.0); Calcium, Ionized 1.09 mmol/L (See Comments:); Chloride 108 mmol/L (98-107); Hemoglobin - Calc 8.3 g/dL (14.0-18.0); Potassium 4.6 mmol/L (3.5-5.1); Sodium 134 mmol/L (138-145); T. Carbon Dioxide 16.2 mmol/L (22.0-28.0); vO2 Saturation-calc 89.5 % (60.0-85.0)
--- NOTE | 2020-08-12 01:48 | PDOC.FPRHP ---
- History of Present Illness Chief Complaint: AMS History of Present Illness: 34 y/o M with PMHx cirrhosis 2/2 alcoholic cirrhosis and hepatitis C s/p treatment brought to ED by his for AMS. She states she has noticed him getting more irritable and arriola over the past two days, and today he fell asleep and she was unable to arouse him. He takes several medications for his cirrhosis at home including lactulose, nadolol, protonix, furosemide, spironolactone. She believes he is taking these medications because he keeps them in a daily pill calendar but she is not home during the day to watch him take the medications. Per , he has not been complaining of anything except for diarrhea. Reports get paracentesis every 2 weeks, had 16 L removed one week ago. also expresses concern that patient may be depressed, is not currently treated for this. ED Course: s/p lactulose - Allergies/Adverse Reactions Allergies Allergy/AdvReac Type Severity Reaction Status Date / Time Blackberries Allergy Mild Hives Uncoded 08/12/20 03:57 - Home Medications Medication Instructions Recorded Confirmed Type Nadolol 1 tab PO QAM 01/14/18 08/05/20 History Pantoprazole [Protonix] 1 tab PO QAM 01/14/18 08/05/20 History Furosemide [Lasix] 40 mg PO Q2DAYS 05/12/20 08/05/20 History Lactulose 30 ml PO DAILY 05/12/20 08/05/20 History Cyanocobalamin (Vitamin B-12) 1,000 mcg PO DAILY 14 Days #14 tab 05/18/20 08/05/20 Rx [Vitamin B-12] Spironolactone [Aldactone] 100 mg PO Q2DAYS 08/04/20 08/05/20 History - History PMHx: cirrhosis, hep C s/p tx, esophageal varices PSHx: paracentesis, esophageal banding FHx: non-contributory Social: hx alcohol abuse (sober since 04/2020), former smoker (quit 04/2020) - Review of Systems ROS unobtainable: due to mental status - Vital signs BP: [125/72] HR: [81] RR: [18] Tmax: [97.6] Pox: [100]% on [RA] Wt: [73.8 kg] - Physical Exam Constitutional: other (altered level of awareness, somnolent but arousable) HEENT: normocephalic and atraumatic, MMM, other (mild scleral icterus, temporal wasting) Neck: no LAD Heart: RRR, pulses present, no edema Lungs: CTAB, no respiratory distress Abdomen: other (massively distended, mild fluid wave) Musculoskeletal: normal structure Neurological: other Skin: other (prominent abdominal veins) Psychiatric: other (unable to assess due to mental status) FMR H&P: Results - Labs Result Diagrams: 08/12/20 04:04 08/12/20 04:04 Lab results: WBC 5.3 thou/uL (4.8-10.8) 08/11/20 21:00 Hgb 9.3 g/dL (14.0-18.0) L 08/11/20 21:00 Hct 27.3 % (42.0-52.0) L 08/11/20 21:00 MCV 95.0 fL (78.0-98.0) 08/11/20 21:00 Plt Count 55 thou/uL (130-400) L 08/11/20 21:00 Neutrophils % 72.7 % (42.0-75.0) 08/11/20 21:00 VBG pCO2 18.1 mmHg (40.0-50.0) L* 08/11/20 21:37 VBG pO2 47.7 mmHg (35.0-45.0) H 08/11/20 21:37 Sodium 132 mmol/L (136-145) L 08/11/20 21:00 Potassium 4.6 mmol/L (3.5-5.1) 08/11/20 21:00 Chloride 108 mmol/L (98-107) H 08/11/20 21:00 Carbon Dioxide 15 mmol/L (22-29) L 08/11/20 21:00 BUN 29 mg/dL (8.9-20.6) H 08/11/20 21:00 Creatinine 1.44 mg/dL (0.7-1.3) H 08/11/20 21:00 Glucose 106 mg/dL (70-105) H 08/11/20 21:00 Lactic Acid 1.9 mmol/L (0.5-2.2) 08/11/20 21:00 Calcium 7.9 mg/dL (7.8-10.44) 08/11/20 21:00 Total Bilirubin 3.3 mg/dL (0.2-1.2) H 08/11/20 21:00 AST 27 U/L (5-34) 08/11/20 21:00 ALT 15 U/L (8-55) 08/11/20 21:00 Alkaline Phosphatase 68 U/L (40-110) 08/11/20 21:00 Ammonia 172 umol/L (18-72) H 08/11/20 21:00 Serum Total Protein 6.7 g/dL (6.0-8.3) 08/11/20 21:00 Albumin 2.7 g/dL (3.5-5.0) L 08/11/20 21:00 FMR H&P: A/P - Plan Acute hepatic encephalopathy Reported compliance with home regimen per . Ammonia 172 on admission. s/p lactulose in ED. Have not ruled out SBP although patient is clinically stable. - continue lactulose QID - consider paracentesis to r/o SBP in AM Cirrhosis With acute encephalopathy as above. Follows with GI, Dr. Millard. Was previously on hospice but was discharged from hospice during COVID to be permitted to continue paracentesis. - resumed home nadolol, protonix - recommend f/u with GI in AM regarding furosemide, spironolactone dosing; held for soft BP overnight - palliative care consult to establish goals of care Thrombocytopenia Plt 55. Hx of esophageal varices. - held DVT ppx, recommend f/u with GI for recs regarding this Anemia Hgb 9, appears to be his baseline over the past several years. does not end orse any symptoms of acute bleeding nor are there any signs of acute bleeding on his exam. - continue to monitor given risk for variceal bleeding Possible mood disorder Possible depression, untreated, reported by . - would benefit from outpatient f/u for this - consider discussing with patient when mental status is improved FMR H&P: Upper Level - Plan Date/Time: 08/12/20 0147 Reji, [Belén Rachel], have evaluated this patient and agree with findings/plan as outlined by validation intern resident. Pertinent changes/additions are listed here. 34 yo M with alcohol cirrhosis with ascites here for hepatic encephalopathy. Diagnosed with cirrhosis 4 years ago. Also hx of hep C reportedly treated. reported he has been increasingly forgetful, nauseas the past two weeks and today he became unresponsive. Called EMS who brought him into ER. He was found to have an elevated ammonia and is being admitted for hepatic encephalopathy. Patient follows w/ Dr. Millard outpt and has hx of esophageal varices with banding. He also recently had therapeutic paracentesis on 08/05 in which he had 16L drained. reported no fevers, chills. states she believes he takes his lactulose daily but is unsure. Gen- Jaundice, intermittently follows verbal commands HEENT- spontaneous eye movement, icterus CV- RRR Abd- Distended, ascites, no fluid wave, no erythema, umbilical protrusion CT head: unrmk CXR: no acute c/p processes Ammonia 172 #Hepatic encephalopathy -Ammonia 172, altered -Lactulose 30mg QID, titrate to effect -Monitor for clinical status -Consider adding rifaximin -Consider reaching out to Dr. Millard in AM #Alcoholic Cirrhosis with ascites -MELD 25, 14-15% 90 day mortality -Ascites, however hold off on abx ppx. No fever, no leukocytosis -If not improved clinically tmrw consider diagnostic paracentesis -Hold lasix & spironolactone due to pressures #Hyperbilirubinemia -2/2 to above #Thrombocytopenia -2/2 above, monitor #Chronic Hep C #Anemia -Likely 2/2 hepatic/renal dysfx -Stable, monitor #Hx of esophageal varices s/p banding -Continue nadolol -Continue ppx PPI dvt ppx: hold (asa 4, however pt plt 55, high risk for bleeding). SCDs gi ppx: pantoprazole admit: tele/inpt
[2020-08-12 02:50] VITALS: BMI 24.0
[2020-08-12 04:39] LABS: #Eosinphils 0.2 thou/uL (0.0-0.7); #Lymphocytes 0.6 thou/uL (1.20-3.40); #Monocytes 0.5 thou/uL (0.11-0.59); #Neutrophils 4.3 thou/uL (1.40-6.50); %Basophils 0.3 % (0.0-1.0); %Eosinophils 2.7 % (0.0-10.0); %Lymphocytes 10.2 % (21.0-51.0); %Monocytes 8.6 % (0.0-10.0); %Neutrophils 78.1 % (42.0-75.0); Hemoglobin 9.2 g/dL (14.0-18.0); Mean Corpuscular HGB CONC 33.9 g/dL (32.0-36.0); Mean Corpuscular Hemoglobin 32.3 pg (27.0-31.0); Mean Corpuscular Volume 95.1 fL (78.0-98.0); Mean Platelet Volume 7.4 fL (7.4-10.4); Platelet Count 47 thou/uL (130-400); RBC Distribution Width 12.3 % (11.5-14.5); Red Blood Cell (RBC) Count 2.85 mill/uL (4.70-6.10); White Blood Cell (WBC) Count 5.5 thou/uL (4.8-10.8)
[2020-08-12 04:54] LABS: ALT (SGPT) 17 U/L (8-55); AST (SGOT) 26 U/L (5-34); Albumin 2.7 g/dL (3.5-5.0); Alkaline Phosphatase 64 U/L (40-110); Anion Gap 14 mmol/L (10-20); BUN (Urea Nitrogen) 31 mg/dL (8.9-20.6); Bilirubin, Total 4.1 mg/dL (0.2-1.2); Calc. Creatinine Clearance 73 mL/min (70-130); Calcium 8.3 mg/dL (7.8-10.44); Carbon Dioxide 14 mmol/L (22-29); Chloride 109 mmol/L (98-107); Estimated GFR-MDRD 55; Glucose 117 mg/dL (70-105); Potassium 4.1 mmol/L (3.5-5.1); Protein, Total 6.7 g/dL (6.0-8.3); Sodium 133 mmol/L (136-145)
[2020-08-12] MEDS: Lactated Ringer's 1,000 ML IV SCH ×2 (05:43→23:40)
--- NOTE | 2020-08-12 05:50 | PDOC.FM ---
- Subjective Subjective: Patient denies any complaints this morning. He is AOx3. Reports he stooled once overnight. States he does not remember the events of yesterday. Reports his GI doctor is Dr. Millard, states he was supposed to make a follow up visit but has not yet. - Objective Vital Signs & Weight: Vital Signs (12 hours) Temp Pulse Resp BP Pulse Ox 08/12/20 04:00 97.6 F 66 17 121/75 100 08/12/20 02:25 100 08/12/20 02:19 97.6 F 83 20 127/69 100 Weight Weight 73.89 kg Result Diagrams: 08/12/20 04:04 08/12/20 04:04 Phys Exam - Physical Examination Constitutional: NAD sclera icteric Neck: supple, full ROM Respiratory: no wheezing, clear to auscultation bilateral Cardiovascular: RRR 3/6 systolic murmur Gastrointestinal: soft +fluid wave, distended Musculoskeletal: pulses present trace pitting edema BLE Neurological: non-focal, moves all 4 limbs Psychiatric: normal affect, A&O x 3 Skin: normal turgor, cap refill <2 seconds Dx/Plan (1) Esophageal varices with bleeding Code(s): I85.01 - ESOPHAGEAL VARICES WITH BLEEDING Status: Chronic (2) Alcohol abuse Code(s): F10.10 - ALCOHOL ABUSE, UNCOMPLICATED Status: Chronic (3) Chronic hepatitis C Code(s): B18.2 - CHRONIC VIRAL HEPATITIS C Status: Chronic Qualifiers: Qualified Code(s): B18.2 - Chronic viral hepatitis C (4) Cirrhosis Code(s): K74.60 - UNSPECIFIED CIRRHOSIS OF LIVER Status: Chronic Qualifiers: Qualified Code(s): K70.31 - Alcoholic cirrhosis of liver with ascites (5) Pancytopenia Code(s): D61.818 - OTHER PANCYTOPENIA Status: Chronic - Plan Plan: #Acute Hepatic encephalopathy, resolved -Pt altered on presentation, Ammonia 172. Pt reports 1 BM overnight, AOx3 this morning. -Ascites. No fever, no leukocytosis, SBP ppx was held as AMS thought to be likely 2/2 hyperammonemia -Lactulose 30mg QID, titrate to 3 stools daily -Consider adding rifaximin as adjunct to lactulose -Consult GI, Dr. Millard, appreciate recs #Alcoholic Cirrhosis with ascites #History of Hep C, treated -MELD-Na 26, 14-15% 90 day mortality -Consider diagnostic paracentesis -Held lasix due to lower pressures, Continue spironolactone, will talk with family to confirm last dose, may also call pharmacy later today to confirm dosing #Hyperbilirubinemia -2/2 to above -sclera icteric -continue to monitor #Thrombocytopenia -2/2 above, monitor -SCDs for ppx #Anemia, stable -Likely 2/2 hepatic/renal dysfx -Continue to monitor #Hx of esophageal varices s/p banding -Continue nadolol -Continue ppx PPI -GI consulted, appreciate recs #Hx Portal Vein thrombus -Liver dopplers today GI ppx: protonix DVT ppx: SCDs, as thrombocytopenic Diet: Held, due to AMS PCP: Nuvia Code: Full Dispo: Admitted to tele, LOS >2 midnights
--- NOTE | 2020-08-12 07:42 | RAD ---
PORTABLE CHEST: Date: 08/12/2020 PROVIDED CLINICAL HISTORY: Altered mental status. FINDINGS: Comparison with 08/11/2020. Interval placement of enteric catheter, the tip of which is not visualized but is below the diaphragm , as is the proximal side hole lucency. Additional significant interval change with respect to the pr ior study is not apparent. IMPRESSION: As above. POS: OFF
[2020-08-12] MEDS ORDERED: Nadolol 40 MG TAB PER TUBE SCH (09:00)
[2020-08-12] MEDS: Cyanocobalamin (Vitamin B-12) 1,000 MCG TAB PER TUBE SCH (09:11)
[2020-08-12] MEDS: Pantoprazole 40 MG GRANULES PACKET PER TUBE SCH (09:11)
--- NOTE | 2020-08-12 09:12 | ULT ---
HEPATIC ULTRASOUND WITH DOPPLER: INDICATION: Cirrhosis and hepatitis. Portal hypertension. History of portal vein thrombosis. FINDINGS: Exam is limited due to body habitus and bowel gas and inability to move the patient in decubitus posi tion. Moderate to large volume ascites is noted. The liver is cirrhotic with irregular margins and heterogeneity. No liver mass. The gallbladder shows echogenic material in the neck suggesting dense sludge or sludge balls. No pos terior shadowing. The gallbladder wall is thickened secondary to the ascites. The common bile duct is within normal range measured at 4-5 mm. The spleen is enlarged. The pancreas is obscured. Aorta and IVC are obscured. Doppler studies show normal flow in the main portal vein and in the proximal left and right portal ve ins. The technologist had difficulty assessing flow in a distal right upper portal vein and thrombus in this distal right portal vein could not be excluded. The hepatic veins, hepatic artery and splenic veins show normal hepatopetal blood flow by Doppler and spectral analysis. IMPRESSION: 1. Flow is demonstrated in the main portal vein and in the proximal right and left portal veins. Fl ow in a distal right upper portal vein is questioned. 2. Ascites and changes of cirrhosis with splenomegaly as noted above. POS: AGW
[2020-08-12 11:28] LABS: Actual Bicarbonate (HCO3a) 14.5 mEq/L (22-28); Base Excess (BEa) -6.9 mEq/L (-2.0 to +3.0); Calcium, Ionized (arterial) 1.16 mmol/L (1.12-1.30); Carboxyhemoglobin (COHb) 0.3 gm% (0.0-3.0); Hemoglobin (Hb) 10.2 g/dL (14.0-18.0); O2 Tension (PaO2), arterial 113.7 mmHg (80.0-100.0); Potassium - ABG Lab 3.93 mmol/L (3.70-5.30)
[2020-08-12 11:30] LABS: Puncture Site RRA
[2020-08-12] MEDS ORDERED: cefTRIAXone\\ROCEPHIN 2 GM in Sodium Chloride 0.9% 100 ML IVPB SCH (11:45)
--- NOTE | 2020-08-12 12:04 | PRG ---
DATE OF SERVICE: 08/12/2020 Mr. Carnes is a 34-year-old man with a history of cirrhosis secondary to alcoholic cirrhosis and for treated hepatitis C. His brought him to the ER last night with altered mental status, noting he becoming more irritable and arriola over the past two days. He was also extremely somnolent and she was at times unable to arouse him. He was brought to the ER last night and evaluated by the [facility]. Their exam was consistent with acute hepatic encephalopathy. He also had metabolic acidosis with some respiratory compensation. Given these findings, I am concerned about the possibility of SPF and he will likely need paracentesis to check for this. He had however has elevations of the INR as well as mild thrombocytopenia. We will therefore discuss this with IR and proceed accordingly. In the event, this morning, he is much more lucid. His abdomen is distended, but not particularly tender. He is back on his lactulose and we have also consulted GI. Job ID: [id number]
[2020-08-12] MEDS ORDERED: Sodium Bicarbonate 2.5 MEQ/5 ML VIAL ONE (12:21)
[2020-08-12] MEDS ORDERED: Lidocaine 1% PF 5 ML VIAL ONE (12:21)
[2020-08-12 12:27] LABS: Amphetamine Not Detected (NotDetected); Barbiturates Screen Not Detected (NotDetected); Benzodiazepine Screen Not Detected (NotDetected); Cocaine Metabolite Screen Not Detected (NotDetected); Medtox Control Line Valid? VALID (VALID); Medtox Reader # READER 4; Methadone Not Detected (NotDetected); Methamphetamine Not Detected (NotDetected); Opiate Screen Not Detected (NotDetected); Oxycodone Screen Not Detected (NotDetected); Phencyclidine (PCP) Not Detected (NotDetected); THC/Cannabinoid Screen Not Detected (NotDetected); Tricyclic Screen Not Detected (NotDetected)
[2020-08-12 12:28] LABS: SARS-CoV-2 MS2 Positive; SARS-CoV-2 N Gene Negative; SARS-CoV-2 S Gene Negative; SARS-CoV-2 by NAA Not Detected (NotDetected); SARS-CoV-2 orf1ab Negative
[2020-08-12] MEDS: Albumin 25% 25 GM/100 ML BOT IVPB SCH ×3 (14:25→23:40)
--- NOTE | 2020-08-12 15:01 | ULT ---
Ultrasound-guided paracentesis: HISTORY: Recurrent and symptomatic ascites. FINDINGS: Informed consent obtained prior to the procedure. Preprocedural imaging demonstrated a larg e amount of intraperitoneal free fluid. An area was marked in the left lower quadrant, and then meticulously prepped and draped in normal tayler rile fashion and anesthetized with 1% buffered lidocaine. With direct sonographic guidance, a 19-gauge needle and 5 Icelandic Yueh catheter were advanced into the abdomen. After the return of fluid, the catheter was advanced, and the needle was removed. Approximately 7 L of clear straw-colored fluid was aspirated. The introducer sheath was removed, and hemostasis was achieved with direct pressure. A dry sterile dressing was placed. The patient tolerated the procedure well and without immediate complication. Follow-up ultrasound examination aft er paracentesis demonstrates persistent large amount of intraperitoneal free fluid in the abdomen. IMPRESSION: Technically successful ultrasound-guided paracentesis.
[2020-08-12 15:13] LABS: RBC Count-Automated (BF) 476 /cu.mm; WBC/Nucleated-Auto (BF) 113 uL
[2020-08-12] MEDS ORDERED: Spironolactone 100 MG TAB PO SCH (15:15)
[2020-08-12] MEDS ORDERED: Furosemide 20 MG TAB PO SCH (15:15)
[2020-08-12 15:23] LABS: BF Color Yellow; Body Fluid Source Paracentesis Fluid; Clarity Hazy (Clear); Tube # EDTA
[2020-08-12] MEDS ORDERED: Furosemide 20 MG TAB PER TUBE SCH (15:30)
[2020-08-12] MEDS ORDERED: Spironolactone 100 MG TAB PER TUBE SCH (15:30)
[2020-08-12 15:58] LABS: Fluid, Bilirubin Total 0.8 mg/dL (Not Available); Fluid, Protein 1.2 g/dL (Not Available)
[2020-08-12 15:59] LABS: BF Segmented Neutrophils 10 %; Cell Count Non Hematic 55 %; Eosinophils 1 %; Lymphocytes 34 %
--- NOTE | 2020-08-13 01:37 | CON ---
DATE OF CONSULTATION: 08/12/2020 CHIEF COMPLAINT: Confusion. HISTORY OF PRESENT ILLNESS: Mr. Carnes is a 34-year-old man with end-stage liver disease, who was admitted with confusion related to hepatic encephalopathy. He was treated with lactulose and now his mental status has returned to normal and he has no acute complaints. He did undergo recent paracentesis a week ago with large volume 16 L removed. Today, he had another paracentesis with 7 L removed. He had an NG tube in place. He has no other acute complaints at this time. He has had no blood in the stool or black stools. No diarrhea or constipation. He is having increased stool output now with the lactulose. He has been taking his lactulose at home and states he has not been missing any of these doses. PAST MEDICAL HISTORY: 1. Esophageal varices with history of bleed and banding. His most recent banding of esophageal varices was done on 06/29/2020. 2. Refractory ascites. 3. End-stage liver disease secondary to alcohol. PAST SURGICAL HISTORY: Esophageal varices banding. FAMILY HISTORY: Negative for GI malignancy or liver disease. SOCIAL HISTORY: Alcohol abuse. He has been off alcohol for the last couple of months now. Quit smoking in April of 2020 as well. ALLERGIES: NO KNOWN DRUG ALLERGIES. REVIEW OF SYSTEMS: Negative x10 systems reviewed except as stated in the history of present illness. MEDICATIONS: Prior to admission: 1. Spironolactone 100 mg daily. 2. Nadolol 20 mg daily. 3. Lactulose four times daily. 4. Furosemide 40 mg daily. In the hospital, he is taking ceftriaxone. PHYSICAL EXAMINATION: VITAL SIGNS: Temperature 98.1, pulse 73, and blood pressure 98/60. GENERAL: He is in no acute distress. HEENT: scleral icterus. His oropharynx is clear without lesions. He has an NG tube in place. LUNGS: Clear to auscultation bilaterally. HEART: Regular rate and rhythm without murmur. ABDOMEN: Soft, nontender, and nondistended. Bowel sounds are present. EXTREMITIES: No lower extremity edema. LABORATORY DATA: Creatinine 1.47. Bilirubin 4.1, AST 26, ALT 17, alkaline phosphatase 64, albumin 2.7. Ammonia was 172 on presentation. INR 2.0. White blood cell count 5.5, hemoglobin 9.2, and platelets 47,000. IMPRESSION: 1. Hepatic encephalopathy, currently resolved with lactulose. He states he has not been missing doses at home. He will continue on lactulose now to titrate to 3 to 4 soft stools per day. 2. Ascites. He had a large volume paracentesis of 16 L last week and then 7 L today. He did receive albumin. 3. Acute renal insufficiency. With the recent large volume paracentesis and use of nadolol and diuretics, we will need to keep a very close eye on his creatinine. If his creatinine rises tomorrow, then we will need to stop the nadolol and diuretics, and continue the albumin to perfuse his kidneys. He might even end up needing some extra fluid if that is the case. 4. History of esophageal varices bleeding, status post most recent banding for eradication back in June 2020. RECOMMENDATIONS: 1. Continue lactulose to titrate to 3 to 4 soft stools per day. 2. Continue the diuretics and nadolol for now. However, if his creatinine bumped at all tomorrow, then stop these. 3. Continue the albumin. 4. Discontinue NG tube now and start him on a low-salt diet. Job ID: [id number]
[2020-08-13 04:35] LABS: #Eosinphils 0.2 thou/uL (0.0-0.7); #Lymphocytes 0.7 thou/uL (1.20-3.40); #Monocytes 0.9 thou/uL (0.11-0.59); #Neutrophils 4.2 thou/uL (1.40-6.50); %Basophils 0.4 % (0.0-1.0); %Eosinophils 3.6 % (0.0-10.0); %Lymphocytes 10.8 % (21.0-51.0); %Monocytes 14.8 % (0.0-10.0); %Neutrophils 70.5 % (42.0-75.0); Hemoglobin 7.7 g/dL (14.0-18.0); INR-International Normal Ratio 2.2; Mean Corpuscular HGB CONC 33.9 g/dL (32.0-36.0); Mean Corpuscular Volume 94.4 fL (78.0-98.0); Mean Platelet Volume 8.4 fL (7.4-10.4); Platelet Count 38 thou/uL (130-400); Prothrombin Time 24.3 sec (12.0-14.7); RBC Distribution Width 12.6 % (11.5-14.5)
[2020-08-13 04:36] LABS: PTT 46.2 sec (22.9-36.1)
[2020-08-13 05:15] LABS: ALT (SGPT) 13 U/L (8-55); AST (SGOT) 19 U/L (5-34); Albumin 3.1 g/dL (3.5-5.0); Alkaline Phosphatase 50 U/L (40-110); Anion Gap 16 mmol/L (10-20); BUN (Urea Nitrogen) 39 mg/dL (8.9-20.6); Bilirubin, Total 2.6 mg/dL (0.2-1.2); Calc. Creatinine Clearance 53 mL/min (70-130); Calcium 8.4 mg/dL (7.8-10.44); Carbon Dioxide 14 mmol/L (22-29); Chloride 110 mmol/L (98-107); Estimated GFR-MDRD 37; Globulin 3.3 g/dL (2.4-3.5); Glucose 103 mg/dL (70-105); Potassium 3.4 mmol/L (3.5-5.1); Protein, Total 6.4 g/dL (6.0-8.3); Sodium 137 mmol/L (136-145)
--- NOTE | 2020-08-13 05:45 | PDOC.FM ---
- Subjective Subjective: Reports >4 soft BMs. Denies N/V. Reports MSK chest pain like 2/2 to combative episode earlier in hospital stay. Denies SOB. - Objective MAR Reviewed: Yes Vital Signs & Weight: Vital Signs (12 hours) Temp Pulse Resp BP Pulse Ox 08/13/20 04:00 98.9 F 90 15 94/51 L 100 08/12/20 23:05 104/65 08/12/20 20:20 98.1 F 73 14 98/60 100 Weight Admit Weight 73.89 kg Weight 73.89 kg I&O: 08/11/20 08/12/20 08/13/20 06:59 06:59 06:59 Intake Total 180 780 Output Total 400 Balance 180 380 Result Diagrams: 08/13/20 03:54 08/13/20 03:54 Phys Exam - Physical Examination Constitutional: NAD Sclera icteric Neck: supple, full ROM Respiratory: no wheezing, no rales, no rhonchi, clear to auscultation bilateral Cardiovascular: RRR, no significant murmur, no rub Gastrointestinal: soft, positive bowel sounds significantly less abdominal distention Musculoskeletal: no edema Psychiatric: normal affect Deviation from normal: Jaundice Dx/Plan - Plan Plan: Acute Hepatic encephalopathy -AMS resolved -Ammonia 172 on arrival -s/p paracentesis for Ascites; 7 L of fluid removed; started on Rocephin for SBP ppx on 08/12, dc'd on 08/13; fluid was not concerning for infection; No fever, no leukocytosis -Lactulose 30mg QID, goal of 3-4 soft BMs per day -Consult GI, Dr. Millard, appreciate recs Alcoholic Cirrhosis with ascites -MELD-Na 26, 14-15% 90 day mortality -s/p paracentesis on 08/13, see above -will hold diuretics and nadolol due to bump in Cr -GI consulted History of Hep C -treated Hyperbilirubinemia -2/2 to above, monitor Thrombocytopenia -2/2 to above, monitor Anemia -Likely 2/2 hepatic/renal dysfx, monitor DANNY -Likely 2/2 to diuresis -will hold diurectics and nadolol Hx of esophageal varices s/p banding -will hold nadolol today due to bump in Cr. -will continue protonix and monitor for bleed -GI consulted Hx Portal Vein thrombus -U/S: flow in main portal vein and proximal right and left veins; flow in distal right upper is questionable PPx: Protonix, SCDs due to thrombocytopenia Diet: Low sodium PCP: Dandretaridavid Code: Full Dispo: pending further medical management and GI recs
[2020-08-13] MEDS: Albumin 25% 25 GM/100 ML BOT IVPB SCH ×4 (05:46→22:13)
[2020-08-13] MEDS ORDERED: Ibuprofen 100 MG/5 ML UDCUP PO SCH (08:30)
[2020-08-13] MEDS ORDERED: Furosemide 40 MG TAB PER TUBE SCH (09:00)
[2020-08-13] MEDS ORDERED: Spironolactone 100 MG TAB PER TUBE SCH (09:00)
[2020-08-13] MEDS: Pantoprazole 40 MG GRANULES PACKET PER TUBE SCH (09:37)
[2020-08-13] MEDS: Cyanocobalamin (Vitamin B-12) 1,000 MCG TAB PER TUBE SCH (09:37)
[2020-08-13] MEDS ORDERED: Lidocaine 4% Cream 5 GM TUBE w/ Tegaderm TOP SCH (10:45)
[2020-08-13 12:11] LABS: Folate,Hemolysate >620.0 ng/mL (Not Estab.); Hematocrit 28.1 % (37.5-51.0); RBC Folate Test Component Greater than 2206 ng/mL (>498)
--- NOTE | 2020-08-13 12:13 | PRG ---
DATE OF SERVICE: 08/13/2020 Mr. Carnes looks and feels much better this morning. He had a paracentesis yesterday with removal of 7 L of fluid. His cell studies were not consistent with SBP and we will discontinue his antibiotics. He has a persistent metabolic acidosis, which I think is a combination of end-stage liver disease and possible hepatorenal syndrome. Otherwise, he clinically appears to be at his baseline. He can likely be discharged today or tomorrow. He is also being followed by Dr. Millard and we appreciate his input. Job ID: [id number]
--- NOTE | 2020-08-13 14:59 | PRG ---
DATE OF SERVICE: 08/13/2020 SUBJECTIVE: Mr. Carnes has no acute complaints today. He is tolerating his diet. He is having brown bowel movements. OBJECTIVE: VITAL SIGNS: Temperature 98.0, pulse 80, blood pressure 106/60. GENERAL: He is in no acute distress. Alert and oriented x3. LUNGS: Clear to auscultation bilaterally. HEART: Regular rate and rhythm without murmur. ABDOMEN: Soft, nontender, and nondistended. Bowel sounds are present. EXTREMITIES: 1+ pitting lower extremity edema. LABORATORY DATA: White blood cell count 6.0; hemoglobin today is 7.7, down from 9.2 yesterday; platelets 38,000. INR 2.2. Bilirubin 2.6, down from 4.1 yesterday. AST 19, ALT 13, alkaline phosphatase 50, and albumin 3.1. IMPRESSION: 1. End-stage liver disease secondary to past alcohol. 2. Ascites, status post 16 L paracentesis last week and then 7 L paracentesis yesterday. He did receive albumin with the paracentesis. 3. Acute kidney disease. With the recent large volume paracentesis, he is likely a little too dry now and has most likely prerenal kidney injury. We have to be careful about risk for progression to hepatorenal syndrome now. 4. History of esophageal varices with bleed. His most recent banding was in June 2020. 5. Anemia. His hemoglobin dropped today. However, he has not shown signs of overt bleeding . 6. Hepatic encephalopathy, currently resolved. RECOMMENDATIONS: 1. Hold diuretics and nadolol to optimize renal perfusion. 2. Continue scheduled IV albumin. 3. Low-salt diet. 4. Lactulose titrated to 3 to 4 soft stools per day. 5. Continue to follow the trend of the creatinine closely. 6. Dr. Stanton will be covering the weekend. Job ID: [id number]
[2020-08-14] MEDS: Albumin 25% 25 GM/100 ML BOT IVPB SCH (03:37)
[2020-08-14 05:23] LABS: INR-International Normal Ratio 2.4; PTT 46.5 sec (22.9-36.1); Prothrombin Time 26.1 sec (12.0-14.7)
[2020-08-14 05:31] LABS: #Eosinphils 0.2 thou/uL (0.0-0.7); #Lymphocytes 0.6 thou/uL (1.20-3.40); #Monocytes 0.7 thou/uL (0.11-0.59); #Neutrophils 3.1 thou/uL (1.40-6.50); %Basophils 0.7 % (0.0-1.0); %Eosinophils 3.4 % (0.0-10.0); %Lymphocytes 13.1 % (21.0-51.0); %Monocytes 14.8 % (0.0-10.0); %Neutrophils 67.9 % (42.0-75.0); Hemoglobin 6.7 g/dL (14.0-18.0); Mean Corpuscular HGB CONC 34.6 g/dL (32.0-36.0); Mean Corpuscular Hemoglobin 32.6 pg (27.0-31.0); Mean Corpuscular Volume 94.2 fL (78.0-98.0); Mean Platelet Volume 7.6 fL (7.4-10.4); Platelet Count 38 thou/uL (130-400); RBC Distribution Width 12.6 % (11.5-14.5); Red Blood Cell (RBC) Count 2.06 mill/uL (4.70-6.10); White Blood Cell (WBC) Count 4.5 thou/uL (4.8-10.8)
[2020-08-14 05:38] LABS: ALT (SGPT) 12 U/L (8-55); AST (SGOT) 17 U/L (5-34); Albumin 3.8 g/dL (3.5-5.0); Alkaline Phosphatase 63 U/L (40-110); Anion Gap 14 mmol/L (10-20); BUN (Urea Nitrogen) 35 mg/dL (8.9-20.6); Bilirubin, Total 2.3 mg/dL (0.2-1.2); Calc. Creatinine Clearance 76 mL/min (70-130); Calcium 8.3 mg/dL (7.8-10.44); Carbon Dioxide 16 mmol/L (22-29); Chloride 112 mmol/L (98-107); Estimated GFR-MDRD 60; Globulin 2.6 g/dL (2.4-3.5); Glucose 115 mg/dL (70-105); Potassium 3.7 mmol/L (3.5-5.1); Protein, Total 6.4 g/dL (6.0-8.3); Sodium 138 mmol/L (136-145)
--- NOTE | 2020-08-14 06:01 | PDOC.FM ---
- Subjective Subjective: Patient sitting up in bed, resting comfortably this morning. Complains of mild chest tenderness to palpation but no SOB. Endorses a rash that was itchy near where the paracentesis was performed, but Calazime lotion has eased the itch but is still somewhat irritated with blisters developing. Denies abdominal pain, dizziness, fatigue, dark stools. Hgb today 6.7, will transfuse 1 unit. - Objective MAR Reviewed: Yes Vital Signs & Weight: Vital Signs (12 hours) Temp Pulse Resp BP Pulse Ox 08/14/20 04:00 98.0 F 94 20 100/59 L 100 08/13/20 23:34 130/63 08/13/20 19:58 98.2 F 85 18 111/65 100 Weight Admit Weight 73.89 kg Weight 70.352 kg I&O: 08/12/20 08/13/20 08/14/20 06:59 06:59 06:59 Intake Total 180 1580 960 Output Total 700 500 Balance 180 880 460 Result Diagrams: 08/14/20 04:57 08/14/20 04:57 Phys Exam - Physical Examination Constitutional: NAD HEENT: moist MMs, sclera anicteric Neck: no JVD, supple Respiratory: no wheezing, clear to auscultation bilateral Cardiovascular: RRR, no significant murmur umbilical hernia Musculoskeletal: no edema Neurological: normal sensation, moves all 4 limbs Psychiatric: normal affect, A&O x 3 Deviation from normal: 2 small blisters and circular rash likely contact dermatitis Dx/Plan - Plan Plan: Acute Hepatic encephalopathy -AMS resolved -Ammonia 172 on arrival -s/p paracentesis for Ascites; 7 L of fluid removed; started on Rocephin for SBP ppx on 08/12, dc'd on 08/13; fluid was not concerning for infection; No fever, no leukocytosis -Lactulose 30mg QID, goal of 3-4 soft BMs per day -Consult GI, Dr. Millard, appreciate recs Alcoholic Cirrhosis with ascites -MELD-Na 26, 14-15% 90 day mortality -s/p paracentesis on 08/13, see above -will hold diuretics and nadolol due to bump in Cr -GI consulted History of Hep C -treated Rash/skin irritation -around skin where paracentesis was performed, circular rash with blisters likely 2/2 contact dermatitis from prep -relieved with Calazime lotion, will continue to monitor Hyperbilirubinemia -2/2 to above, monitor Thrombocytopenia -2/2 to above, monitor Anemia -Likely 2/2 hepatic/renal dysfx, continue to monitor -transfuse 1 unit today, 4 hr post infusion H/h DANNY -Likely 2/2 to diuresis, improved today -will hold diurectics and nadolol Hx of esophageal varices s/p banding -will hold nadolol today due to bump in Cr. -will continue protonix and monitor for bleed -GI consulted, will reach out today about drop in H/H to see about an additional bleed Hx Portal Vein thrombus -U/S: flow in main portal vein and proximal right and left veins; flow in distal right upper is questionable PPx: Protonix, SCDs due to thrombocytopenia Diet: Low sodium PCP: [facility] Code: Full Dispo: pending further medical management and GI recs
[2020-08-14] MEDS: Pantoprazole 40 MG GRANULES PACKET PER TUBE SCH (08:47)
[2020-08-14] MEDS: Cyanocobalamin (Vitamin B-12) 1,000 MCG TAB PER TUBE SCH (08:48)
--- NOTE | 2020-08-14 13:15 | EKG ---
Test Reason : Blood Pressure : / mmHG Vent. Rate : 064 BPM Atrial Rate : 064 BPM P-R Int : 162 ms QRS Dur : 100 ms QT Int : 494 ms P-R-T Axes : 015 009 -01 degrees QTc Int : 509 ms Normal sinus rhythm Prolonged QT Abnormal ECG Confirmed by JOVAN MILLS M.D. ([id number]), editor managing director GURINDER PIERRE ([id number]) on 08/14/2020 1:15:27 PM Referred By: Confirmed By:JOVAN MILLS M.D.
[2020-08-14 17:21] LABS: Hemoglobin 8.8 g/dL (14.0-18.0)
--- NOTE | 2020-08-14 18:31 | PRG ---
DATE OF SERVICE: 08/14/2020 Please see the note from Dr. Wendy Arizmendi, for which I agree. The patient was seen, evaluated, discussed, and examined with the residents by bedside. This gentleman is here for alcoholic cirrhosis, which has led to hepatic encephalopathy. Encephalopathy cleared fairly quickly, on ruling out bacterial peritonitis, did a paracentesis, got 7 L off. Hemoglobin was low at 6.7, so we are giving a unit of blood. Initially elevated creatinine came back to normal. He has had a little blister on exam around where the paracentesis was, that seems to follow the staple line reaction to the bandage. Abdomen still has some ascites, but not horrible. No edema. We will run the case by GI to see if they want to consider re-scoping him or not, but otherwise he is ready for discharge after the unit of blood, but we will see if GI wants the scope, and we will watch him closely to make sure he is not continuing to bleed. Job ID: [id number]
[2020-08-15 04:34] LABS: #Eosinphils 0.2 thou/uL (0.0-0.7); #Lymphocytes 0.6 thou/uL (1.20-3.40); #Monocytes 0.7 thou/uL (0.11-0.59); %Basophils 0.5 % (0.0-1.0); %Lymphocytes 10.5 % (21.0-51.0); %Monocytes 12.8 % (0.0-10.0); %Neutrophils 72.2 % (42.0-75.0); Hemoglobin 8.2 g/dL (14.0-18.0); Mean Corpuscular HGB CONC 33.9 g/dL (32.0-36.0); Mean Corpuscular Hemoglobin 31.8 pg (27.0-31.0); Mean Corpuscular Volume 93.8 fL (78.0-98.0); Mean Platelet Volume 8.4 fL (7.4-10.4); Platelet Count 43 thou/uL (130-400); Red Blood Cell (RBC) Count 2.57 mill/uL (4.70-6.10); White Blood Cell (WBC) Count 5.5 thou/uL (4.8-10.8)
[2020-08-15 04:37] LABS: INR-International Normal Ratio 2.1; PTT 45.4 sec (22.9-36.1); Prothrombin Time 23.7 sec (12.0-14.7)
[2020-08-15 05:00] LABS: ALT (SGPT) 14 U/L (8-55); AST (SGOT) 20 U/L (5-34); Albumin 3.7 g/dL (3.5-5.0); Alkaline Phosphatase 69 U/L (40-110); Anion Gap 11 mmol/L (10-20); BUN (Urea Nitrogen) 34 mg/dL (8.9-20.6); Bilirubin, Total 3.6 mg/dL (0.2-1.2); Calc. Creatinine Clearance 85 mL/min (70-130); Calcium 8.7 mg/dL (7.8-10.44); Carbon Dioxide 18 mmol/L (22-29); Chloride 109 mmol/L (98-107); Estimated GFR-MDRD 68; Globulin 2.9 g/dL (2.4-3.5); Glucose 108 mg/dL (70-105); Potassium 4.1 mmol/L (3.5-5.1); Protein, Total 6.6 g/dL (6.0-8.3); Sodium 134 mmol/L (136-145)
--- NOTE | 2020-08-15 06:07 | PDOC.FM ---
- Subjective Subjective: Pt is up and about walking around his room this morning. He is doing well, no complaints. Not coughing up blood or having dark stools. No CP, SOB, abdominal pain, edema. Thinks his swelling in his stomach is better than his baseline. He is tolerating PO, no N/V - Objective MAR Reviewed: Yes Vital Signs & Weight: Vital Signs (12 hours) Temp Pulse Resp BP Pulse Ox 08/15/20 04:00 98.1 F 90 20 98/52 L 100 08/14/20 20:00 98.1 F 96 20 131/62 100 Weight Admit Weight 73.89 kg Weight 72.529 kg I&O: 08/13/20 08/14/20 08/15/20 06:59 06:59 06:59 Intake Total 1580 1760 [id number] Output Total 700 500 Balance 880 1260 [id number] Result Diagrams: 08/15/20 03:47 08/15/20 03:47 Phys Exam - Physical Examination Constitutional: NAD HEENT: moist MMs, sclera anicteric Neck: no JVD, supple, full ROM Respiratory: no wheezing, clear to auscultation bilateral Cardiovascular: RRR, no significant murmur Gastrointestinal: soft, non-tender, positive bowel sounds distended, better than baseline as per patient Musculoskeletal: no edema, pulses present Neurological: normal sensation, moves all 4 limbs Psychiatric: normal affect, A&O x 3 Skin: normal turgor Deviation from normal: rash from contact dermatitis on stomach, improved Dx/Plan - Plan Plan: Acute Hepatic encephalopathy -AMS resolved -Ammonia 172 on arrival -s/p paracentesis for Ascites; 7 L of fluid removed; started on Rocephin for SBP ppx on 08/12, dc'd on 08/13; fluid was not concerning for infection; No fever, no leukocytosis -Lactulose 30mg QID, goal of 3-4 soft BMs per day -Consult GI, appreciate the recs Alcoholic Cirrhosis with ascites -MELD-Na 26, 14-15% 90 day mortality -s/p paracentesis on 08/13, see above -will hold diuretics and nadolol due to bump in Cr -GI consulted History of Hep C -treated Rash/skin irritation -around skin where paracentesis was performed, circular rash with blisters likel y 2/2 contact dermatitis from prep -relieved with Calazime lotion, will continue to monitor Hyperbilirubinemia -2/2 to above, monitor Thrombocytopenia -2/2 to above, monitor Anemia -Likely 2/2 hepatic/renal dysfx, continue to monitor -s/p 1 unit 08/14, 4 hr post infusion H/h improved at 8.8, stable DANNY, resolved -Likely 2/2 to diuresis -will hold diurectics and nadolol Hx of esophageal varices s/p banding -will hold nadolol today due to bump in Cr. -will continue protonix and monitor for bleed -GI consulted Hx Portal Vein thrombus -U/S: flow in main portal vein and proximal right and left veins; flow in distal right upper is questionable PPx: Protonix, SCDs due to thrombocytopenia Diet: Low sodium PCP: [facility] Code: Full Dispo: likely discharge today
--- NOTE | 2020-08-15 06:11 | PRG ---
DATE OF SERVICE: 08/14/2020 SUBJECTIVE: This is a 34-year-old male with liver cirrhosis, ascites. The patient has had previous banding done for esophageal varices in the past. The patient is doing well at the present time. There is no abdominal pain. No nausea or vomiting. He has had about 7 stools today. All the stools are brownish to yellowish. There is not any blood in the stool. Not black or tarry. The patient's creatinine was elevated at 2.04 yesterday. He was on IV albumin. His diet is being withheld. His BUN remains high at 35 today, but the creatinine is coming down to 1.35. The patient offers no complaints. OBJECTIVE: GENERAL: Appears comfortable. VITAL SIGNS: Stable. He is deeply jaundiced. Afebrile. Pulse is 94, blood pressure is 100/54. CARDIOVASCULAR: Normal heart sounds. LUNGS: Clear to auscultation. ABDOMEN: Soft. Distended with ascites. Nontender. No organomegaly. No masses. CLINICAL IMPRESSION: 1. Liver cirrhosis, ascites. 2. Chronic kidney disease with worsening creatinine but coming down . RECOMMENDATION: 1. Continue with IV albumin. 2. Supportive care. 3. No need for endoscopy as although the blood count is down he has no sign of bleeding at all. I would recommend repeat H and H and watch him. If he does well, hopefully can be discharged home tomorrow. Job ID: [id number]
[2020-08-15] MEDS: Cyanocobalamin (Vitamin B-12) 1,000 MCG TAB PER TUBE SCH (10:15)
--- NOTE | 2020-08-15 11:45 | PRG ---
DATE OF SERVICE: 08/15/2020 The patient was seen, evaluated, discussed, and examined with the residents by bedside. Please see Dr. Arizmendi's note, for which I agree. The patient is stable. Hemoglobin after a unit of blood went up to 8.8, which is a pretty hefty jump, it was 8.2 this morning, but no evidence of active bleeding. Things are stable otherwise. Started to accumulate a little bit more fluid in his abdomen again after a pretty major volume removal from paracentesis, but mentally he is fine. No more encephalopathy and as long as GI is okay with having him sent out and then outpatient followup. Job ID: [id number]
[2020-08-15 13:19] VITALS: BP 110/55; TEMP 98.2
--- NOTE | 2020-08-15 22:58 | DIS ---
DATE OF ADMISSION: 08/12/2020 DATE OF DISCHARGE: 08/15/2020 RESIDENT: Wendy Arizmendi, PGY-1. ADMITTING ATTENDING: Dr. Samaniego. DISCHARGE ATTENDING: Dr. Johnson CONSULTS: Gastroenterology, Dietary, Palliative Care. PROCEDURES: Brain CT, which showed no acute intracranial process. Chest x-ray, which showed no acute findings. Abdominal ultrasound, which showed ascites and changes of cirrhosis with splenomegaly. Flow is demonstrated in the main portal vein, and the proximal right and left portal vein. Flow in the distal right upper portal vein is questioned. Paracentesis, which was negative for signs of infection. S/p 1 unit of blood transfused. PRIMARY DIAGNOSIS: Acute hepatic encephalopathy. SECONDARY DIAGNOSES: 1. Alcoholic cirrhosis with ascites. 2. History of hepatitis C. 3. Rash/skin irritation likely 2/2 contact dermatitis 4. Hyperbilirubinemia. 5. Thrombocytopenia. 6. Anemia. 7. Acute kidney injury. 8. History of esophageal varices, status post banding. 9. History of portal vein thrombosis. DISCHARGE MEDICATIONS: 1. Protonix 1 packet oral b.i.d. 2. Nadolol 1 tab p.o. daily. 3. Lactulose 20 mL p.o. daily. 4. Lasix 40 mg p.o. daily. 5. Vitamin B12 1000 mcg p.o. daily. 6. Spironolactone 100 mg p.o. daily. DISCONTINUED MEDICATIONS: None. HISTORY OF PRESENT ILLNESS/HOSPITAL COURSE: The patient is a 34-year-old male, who presented to the ED by his for altered mental status. She states she has noticed him getting more irritable and arriola over the last two days; and on the day of admission, he fell asleep and was unable to be aroused. He takes several medications for cirrhosis at home including lactulose, nadolol, Protonix, furosemide, and spironolactone. She believes he had taken his medications because he keeps them in a daily pill calendar, but she is not home during the day, so she is not sure. Per the , he has not been complaining of anything, except for diarrhea. He gets paracentesis every two weeks. He had 16 L removed a week ago. In the ER, he received lactulose. Paracentesis was done during hospital stay, which resulted in 7 L being taken off, with no signs of infection. Throughout hospitalization, the patient denied any symptoms of bleeding like black stools or coughing up blood, despite his history of esophageal varices and anemia. Although, he had no symptoms of bleeding, his hemoglobin did drop to less than 7. He was transfused 1 unit of blood, and his H and H remained stable afterwards. GI was consulted, and they were not concerned about a bleed. Patient follows with Dr. Millard, Gastroenterology, and he was followed by him during his stay. Patient tolerated PO without difficulty and he his vitals remained stable. DISPOSITION: Stable. DISCHARGE INSTRUCTIONS: 1. Location: Home. 2. Diet: Renal diet. 3. Activity: As tolerated. 4. Follow up with PCP and Welding Technician within the week. Job ID: [id number] MTDD
== END 2020-08-15 12:59 | disposition home or self-care (01) | DRG 441 ==
LOC: ERS 20:37 → 2NO 08-12 02:44
PROVIDERS: ADMIT Emergency Medicine; ATTEND Emergency Medicine
PROC: 0W9G3ZZ Drainage of Peritoneal Cavity, Percutaneous Approach (ICD-10-PCS; 2020-08-12)
PROC: 30233N1 Transfusion of Nonautologous Red Blood Cells into Peripheral Vein, Percutaneous Approach (ICD-10-PCS; principal; 2020-08-14)
DX: K72.00 Acute and subacute hepatic failure without coma (principal); R40.2122 Coma scale, eyes open, to pain, at arrival to emergency department; R40.2342 Coma scale, best motor response, flexion withdrawal, at arrival to emergency department; R40.2212 Coma scale, best verbal response, none, at arrival to emergency department; N17.9 Acute kidney failure, unspecified; D61.818 Other pancytopenia; I85.10 Secondary esophageal varices without bleeding; E87.2 Acidosis; K70.31 Alcoholic cirrhosis of liver with ascites; B18.2 Chronic viral hepatitis C; L23.9 Allergic contact dermatitis, unspecified cause; D69.6 Thrombocytopenia, unspecified; Z20.828 Contact with and (suspected) exposure to other viral communicable diseases; F32.9 Major depressive disorder, single episode, unspecified; F10.10 Alcohol abuse, uncomplicated; I10 Essential (primary) hypertension; Z79.899 Other long term (current) drug therapy; Z87.891 Personal history of nicotine dependence
CPT/HCPCS: 36415; 36430; 49083; 70450; 71045; 76705; 80053; 80306; 80307; 82140; 82150; 82247; 82330; 82607; 82747; 82803; 82805; 82945; 83605; 83615; 84157; 84484; 85025; 85060; 85610; 85730; 86850; 86900; 86901; 87040; 87086; 87635; 89051; 93005; J0696; J3490; P9016; P9047; U0003

== ENCOUNTER 2020-08-19 08:12 | Day surgery (SDC) | payer MEDICARE ==
[~2020-08-19 08:12] MED LIST changes: +Albumin 25% 100 ML ONE; -PROPOFOL 200 MG/20 ML VIAL ONE; +Sodium Bicarbonate 2.5 MEQ/5 ML VIAL ONE
[2020-08-19] MEDS ORDERED: Prevnar 13-Val Conj/PF 0.5 ML SYRINGE IM ONE (08:30)
[2020-08-19 08:54] LABS: INR-International Normal Ratio 1.9; Prothrombin Time 21.8 sec (12.0-14.7)
[2020-08-19 08:55] LABS: PTT 43.5 sec (22.9-36.1)
--- NOTE | 2020-08-19 10:50 | ULT ---
Ultrasound-guided paracentesis: 08/19/2020 HISTORY: Symptomatic ascites FINDINGS: Informed consent obtained prior to the procedure. Preprocedural imaging demonstrated signif icant ascites throughout the abdomen and pelvis. Right lower quadrantprepped and draped in normal sterile fashion and anesthetized with 1% buffered li docaine. With direct sonographic guidance, 5 Tajik Yueh catheter is advanced into the ascites and removal of the stylet yielded yellowfluid. 3 L were removed. The patient tolerated the procedure well. No postprocedural complications. IMPRESSION: Successful ultrasound-guided paracentesis yielding 3 L of yellow fluid.
[2020-08-19 12:18] VITALS: BMI 25.2
[2020-08-19 12:19] VITALS: BP 103/63; TEMP 98.1
== END 2020-08-19 10:25 | disposition home or self-care (01) ==
LOC: ULT 08:12
PROVIDERS: ATTEND Physician Assistant Medical
PROC: 0W9G3ZZ Drainage of Peritoneal Cavity, Percutaneous Approach (ICD-10-PCS; principal; 2020-08-19)
PROC: BW40ZZZ Ultrasonography of Abdomen (ICD-10-PCS; 2020-08-19)
DX: K70.31 Alcoholic cirrhosis of liver with ascites (principal); I10 Essential (primary) hypertension; K42.9 Umbilical hernia without obstruction or gangrene; F10.11 Alcohol abuse, in remission; Z87.891 Personal history of nicotine dependence; Z79.899 Other long term (current) drug therapy; Z91.018 Allergy to other foods
CPT/HCPCS: 49083; 85610; 85730; P9047; 36415

== ENCOUNTER 2020-09-03 07:07 | Day surgery (SDC) | payer MEDICARE ==
[2020-09-03] MEDS ORDERED: Lidocaine 1% PF 5 ML VIAL ONE (07:34)
[2020-09-03] MEDS ORDERED: Albumin 25% 200 ML ONE (07:34)
[2020-09-03] MEDS ORDERED: Sodium Bicarbonate 2.5 MEQ/5 ML VIAL ONE (07:34)
[2020-09-03 08:51] VITALS: BP 102/60; TEMP 97.9
[2020-09-03] MEDS ORDERED: FLU VACC QS2020-21(6MOS UP)/PF 60 MCG/0.5 ML SYRINGE IM ONE (09:00)
--- NOTE | 2020-09-03 12:05 | ULT ---
Ultrasound-guided paracentesis: HISTORY: Cirrhosis and recurrent ascites FINDINGS: Informed consent obtained prior to the procedure. Preprocedural imaging demonstrated intrap eritoneal free fluid. An area was marked in the Right lower quadrant , and then meticulously prepped and draped in normal s terile fashion and anesthetized with 1% buffered lidocaine. With direct sonographic guidance, a 19-gauge needle and 5 Vietnamese Yueh catheter were advanced into the abdomen. After the return of fluid, the catheter was advanced, and the needle was removed. Approximately 6 L of clear straw-colored fluid was aspirated. The introducer sheath was removed, and hemostasis was achieved with direct pressure. A dry sterile dressing was placed. The patient tolerated the procedure well and without immediate complication. IMPRESSION: Technically successful ultrasound-guided paracentesis.
== END 2020-09-03 08:38 | disposition home or self-care (01) ==
LOC: ULT 07:07
PROVIDERS: ATTEND Physician Assistant Medical
PROC: 0W9G3ZZ Drainage of Peritoneal Cavity, Percutaneous Approach (ICD-10-PCS; principal; 2020-09-03)
PROC: BW40ZZZ Ultrasonography of Abdomen (ICD-10-PCS; 2020-09-03)
DX: K70.31 Alcoholic cirrhosis of liver with ascites (principal); K72.90 Hepatic failure, unspecified without coma; K42.9 Umbilical hernia without obstruction or gangrene; I10 Essential (primary) hypertension; F10.10 Alcohol abuse, uncomplicated; D64.9 Anemia, unspecified; Z87.891 Personal history of nicotine dependence; Z79.899 Other long term (current) drug therapy; Z91.018 Allergy to other foods
CPT/HCPCS: 49083; P9047

== ENCOUNTER 2020-09-12 22:41 | Emergency (ER) | payer MEDICARE ==
[2020-09-12 23:22] LABS: #Eosinphils 0.2 thou/uL (0.0-0.7); #Lymphocytes 0.7 thou/uL (1.20-3.40); #Monocytes 0.6 thou/uL (0.11-0.59); #Neutrophils 4.2 thou/uL (1.40-6.50); %Basophils 0.7 % (0.0-1.0); %Eosinophils 2.7 % (0.0-10.0); %Lymphocytes 12.9 % (21.0-51.0); %Monocytes 10.6 % (0.0-10.0); %Neutrophils 73.1 % (42.0-75.0); Hemoglobin 8.3 g/dL (14.0-18.0); Mean Corpuscular HGB CONC 36.2 g/dL (32.0-36.0); Mean Corpuscular Hemoglobin 32.6 pg (27.0-31.0); Mean Corpuscular Volume 90.2 fL (78.0-98.0); Mean Platelet Volume 7.7 fL (7.4-10.4); Platelet Count 50 thou/uL (130-400); RBC Distribution Width 13.2 % (11.5-14.5); Red Blood Cell (RBC) Count 2.55 mill/uL (4.70-6.10); White Blood Cell (WBC) Count 5.8 thou/uL (4.8-10.8)
[2020-09-12 23:28] LABS: INR-International Normal Ratio 1.7; Prothrombin Time 20.5 sec (12.0-14.7)
[2020-09-12 23:29] LABS: PTT 43.9 sec (22.9-36.1)
[2020-09-12 23:42] LABS: ALT (SGPT) 12 U/L (8-55); AST (SGOT) 21 U/L (5-34); Albumin 3.2 g/dL (3.5-5.0); Alkaline Phosphatase 77 U/L (40-110); Anion Gap 15 mmol/L (10-20); BUN (Urea Nitrogen) 49 mg/dL (8.9-20.6); Calc. Creatinine Clearance 0 mL/min (70-130); Calcium 8.4 mg/dL (7.8-10.44); Carbon Dioxide 13 mmol/L (22-29); Chloride 104 mmol/L (98-107); Estimated GFR-MDRD 23; Globulin 3.6 g/dL (2.4-3.5); Glucose 133 mg/dL (70-105); Potassium 4.4 mmol/L (3.5-5.1); Protein, Total 6.8 g/dL (6.0-8.3); Sodium 128 mmol/L (136-145)
== END 2020-09-13 00:03 | disposition home or self-care (01) ==
LOC: ERS 22:41
DX: R04.2 Hemoptysis (principal); Z87.891 Personal history of nicotine dependence; Z79.899 Other long term (current) drug therapy
CPT/HCPCS: 36415; 80053; 85025; 85610; 85730; 99284

== ENCOUNTER 2020-09-16 07:18 | Day surgery (SDC) | payer MEDICARE ==
[2020-09-15 08:37] VITALS: BMI 30.7
[2020-09-16 07:36] LABS: #Eosinphils 0.3 thou/uL (0.0-0.7); #Lymphocytes 0.7 thou/uL (1.20-3.40); #Monocytes 0.8 thou/uL (0.11-0.59); #Neutrophils 4.2 thou/uL (1.40-6.50); %Basophils 0.7 % (0.0-1.0); %Eosinophils 4.3 % (0.0-10.0); %Monocytes 12.7 % (0.0-10.0); %Neutrophils 70.3 % (42.0-75.0); Hemoglobin 7.8 g/dL (14.0-18.0); Mean Corpuscular HGB CONC 35.6 g/dL (32.0-36.0); Mean Corpuscular Hemoglobin 32.5 pg (27.0-31.0); Mean Corpuscular Volume 91.4 fL (78.0-98.0); Mean Platelet Volume 6.8 fL (7.4-10.4); Platelet Count 51 thou/uL (130-400); RBC Distribution Width 13.5 % (11.5-14.5)
[2020-09-16] MEDS ORDERED: Lidocaine 1% PF 5 ML VIAL ONE (07:36)
[2020-09-16] MEDS ORDERED: Sodium Bicarbonate 2.5 MEQ/5 ML VIAL ONE (07:36)
[2020-09-16 07:45] LABS: PTT 45.4 sec (22.9-36.1)
[2020-09-16] MEDS ORDERED: Albumin 25% 200 ML ONE (07:58)
[2020-09-16 08:28] LABS: Prothrombin Time 23.1 sec (12.0-14.7)
--- NOTE | 2020-09-16 09:24 | ULT ---
Sonographic guided paracentesis HISTORY: Symptomatic ascites. FINDINGS: After explaining the procedure and answering all questions, sonographic survey showed a lar ge amount of free fluid throughout the abdomen. Sterile technique, buffered local anesthesia, sonographic guidance, and a left lateral approach were used to carefully advance a 19-gauge Yueh needle and catheter into the free fluid. Catheter was left to drain a total volume of 6.0 L dark yellow liquid. Patient is limited to 6 L. Catheter was removed with large amount of fluid remaining. Patient tolerated the procedure well and w as dismissed in good condition. IMPRESSION : Technically successful sonographic guided paracentesis. 6.0 L with large amount remaining.
[2020-09-16 09:32] VITALS: BP 115/71; TEMP 97.9
[2020-09-16] MEDS ORDERED: FLU VACC QS2020-21(6MOS UP)/PF 60 MCG/0.5 ML SYRINGE IM ONE (10:45)
== END 2020-09-16 09:18 | disposition home or self-care (01) ==
LOC: ULT 07:18
PROVIDERS: ATTEND Physician Assistant Medical
PROC: 0W9G3ZZ Drainage of Peritoneal Cavity, Percutaneous Approach (ICD-10-PCS; principal; 2020-09-16)
PROC: BW40ZZZ Ultrasonography of Abdomen (ICD-10-PCS; 2020-09-16)
DX: K70.31 Alcoholic cirrhosis of liver with ascites (principal); K72.90 Hepatic failure, unspecified without coma; I10 Essential (primary) hypertension; F10.11 Alcohol abuse, in remission; Z87.891 Personal history of nicotine dependence; Z79.899 Other long term (current) drug therapy; Z91.018 Allergy to other foods
CPT/HCPCS: 49083; 85025; 85610; 85730; P9047; 36415

== ENCOUNTER 2020-09-22 09:20 | Inpatient (IN) | payer MEDICARE, OTHER ==
[2020-09-22 10:22] LABS: #Eosinphils 0.3 thou/uL (0.0-0.7); #Lymphocytes 0.7 thou/uL (1.20-3.40); #Monocytes 1.1 thou/uL (0.11-0.59); #Neutrophils 6.8 thou/uL (1.40-6.50); %Basophils 0.3 % (0.0-1.0); %Eosinophils 3.2 % (0.0-10.0); %Lymphocytes 7.9 % (21.0-51.0); %Monocytes 12.4 % (0.0-10.0); %Neutrophils 76.2 % (42.0-75.0); Hemoglobin 8.2 g/dL (14.0-18.0); Mean Corpuscular HGB CONC 35.6 g/dL (32.0-36.0); Mean Corpuscular Hemoglobin 31.9 pg (27.0-31.0); Mean Corpuscular Volume 89.6 fL (78.0-98.0); Mean Platelet Volume 7.6 fL (7.4-10.4); Platelet Count 80 thou/uL (130-400); RBC Distribution Width 13.6 % (11.5-14.5); Red Blood Cell (RBC) Count 2.57 mill/uL (4.70-6.10); White Blood Cell (WBC) Count 8.9 thou/uL (4.8-10.8)
[2020-09-22 10:33] LABS: ALT (SGPT) 12 U/L (8-55); AST (SGOT) 15 U/L (5-34); Alkaline Phosphatase 88 U/L (40-110); Anion Gap 19 mmol/L (10-20); BUN (Urea Nitrogen) 96 mg/dL (8.9-20.6); Calc. Creatinine Clearance 0 mL/min (70-130); Calcium 8.3 mg/dL (7.8-10.44); Carbon Dioxide 13 mmol/L (22-29); Chloride 95 mmol/L (98-107); Estimated GFR-MDRD 14; Globulin 3.6 g/dL (2.4-3.5); Glucose 125 mg/dL (70-105); Protein, Total 6.6 g/dL (6.0-8.3); Sodium 123 mmol/L (136-145)
--- NOTE | 2020-09-22 11:40 | PDOC.FPRHP ---
- Allergies/Adverse Reactions Allergies Allergy/AdvReac Type Severity Reaction Status Date / Time Blackberries Allergy Mild Hives Uncoded 09/16/20 09:36 - Home Medications Medication Instructions Recorded Confirmed Type Lactulose 20 ml PO DAILY 05/12/20 09/16/20 History Cyanocobalamin (Vitamin B-12) 1,000 mcg PO DAILY 14 Days #14 tab 05/18/20 09/16/20 Rx [Vitamin B-12] Folic Acid [Folvite] 1 mg PO DAILY 09/03/20 09/16/20 History Pantoprazole [Protonix] 40 mg PO DAILY 09/16/20 09/16/20 History Thiamine HCl [Vitamin B-1] 100 mg PO DAILY 09/16/20 09/16/20 History - History PMHx: PSHx: FHx: Social: - Vital signs BP: [] HR: [] RR: [] Tmax: [] Pox: []% on [] Wt: [] FMR H&P: Results - Labs Result Diagrams: 09/22/20 09:56 09/22/20 09:56 Lab results: WBC 8.9 thou/uL (4.8-10.8) 09/22/20 09:56 Hgb 8.2 g/dL (14.0-18.0) L 09/22/20 09:56 Hct 23.0 % (42.0-52.0) L 09/22/20 09:56 MCV 89.6 fL (78.0-98.0) 09/22/20 09:56 Plt Count 80 thou/uL (130-400) L 09/22/20 09:56 Neutrophils % 76.2 % (42.0-75.0) H 09/22/20 09:56 Sodium 123 mmol/L (136-145) L 09/22/20 09:56 Potassium 4.0 mmol/L (3.5-5.1) 09/22/20 09:56 Chloride 95 mmol/L (98-107) L 09/22/20 09:56 Carbon Dioxide 13 mmol/L (22-29) L 09/22/20 09:56 BUN 96 mg/dL (8.9-20.6) H 09/22/20 09:56 Creatinine 4.66 mg/dL (0.7-1.3) H 09/22/20 09:56 Glucose 125 mg/dL (70-105) H 09/22/20 09:56 Calcium 8.3 mg/dL (7.8-10.44) 09/22/20 09:56 Total Bilirubin 2.0 mg/dL (0.2-1.2) H 09/22/20 09:56 AST 15 U/L (5-34) 09/22/20 09:56 ALT 12 U/L (8-55) 09/22/20 09:56 Alkaline Phosphatase 88 U/L (40-110) 09/22/20 09:56 Ammonia 270 umol/L (18-72) H 09/22/20 10:12 Serum Total Protein 6.6 g/dL (6.0-8.3) 09/22/20 09:56 Albumin 3.0 g/dL (3.5-5.0) L 09/22/20 09:56 FMR H&P: Upper Level - Plan Date/Time: 09/22/20 1140 I, [], have evaluated this patient and agree with findings/plan as outlined by product management intern resident. Pertinent changes/additions are listed here.
--- NOTE | 2020-09-22 13:38 | PDOC.HHP ---
Hospitalist HPI - History of Present Illness DANNY, and follow-up History of Present Illness: This is a 35-year-old male patient with a history of alcoholic liver cirrhosis with ascites, CKD, esophageal varices, hepatic encephalopathy and hepatitis C who was asked to come to the ED by his pattern scratcher Dr. Bueno on account of acute worsening renal function. His creatinine was 1.21 on 08/15/2020 and today is 4.66. At the time of my evaluation patient was very drowsy. He would wake up and answer questions and go quickly back to sleep. He said no to any question I asked him however sounded incoherent Most of the history was gathered from ED physician and records. He was last seen here and discharged on 08/15/2020 on account of acute hepatic encephalopathy and ascites for which she had lactulose and paracentesis. He also received a unit of transfusion for hemoglobin less than 7. At home he is on lactulose pantoprazole Timentin cyanocobalamin At presentation he denied any fever or any other symptoms. Also denied any increased fluid retention, difficulty micturition. His blood pressure on arrival was one /56 with pulse of 99, respiration rate 19 temperature 97.9 and saturation 100% on room air. His labs showed anemia of 8.2, around baseline platelet count of 80, around baseline, sodium 123, bicarb 13, ammonia 270, albumin 3.0. He was administered a liter of normal saline and 20 g of lactulose. Hospitalist ROS - Review of Systems ROS unobtainable: due to mental status Constitutional: reports: fever Hospitalist History - Past Medical History Other Medical History: Decompensated liver cirrhosis, CKD - Family History Other Family History: None of significance - Social History Living Situation: With Family - Exam General Appearance: ill appearing General - other findings: In bed, very somnolent. Eye - other findings: Mild pallor, no icterus Heart: RRR, no murmur, no gallops, no rubs Respiratory: no wheezes, no rales, normal chest expansion Gastrointestinal - other findings: Grossly distended abdomen, no apparent tenderness or rebound tenderness Extremities: no cyanosis, no clubbing, no edema Neurological - other findings: No focal deficits Psychiatric - other findings: Oriented to self. Not place and time Hospitalist Results - Labs Result Diagrams: 09/22/20 09:56 09/22/20 09:56 Lab results: WBC 8.9 thou/uL (4.8-10.8) 09/22/20 09:56 Hgb 8.2 g/dL (14.0-18.0) L 09/22/20 09:56 Hct 23.0 % (42.0-52.0) L 09/22/20 09:56 MCV 89.6 fL (78.0-98.0) 09/22/20 09:56 Plt Count 80 thou/uL (130-400) L 09/22/20 09:56 Neutrophils % 76.2 % (42.0-75.0) H 09/22/20 09:56 Sodium 123 mmol/L (136-145) L 09/22/20 09:56 Potassium 4.0 mmol/L (3.5-5.1) 09/22/20 09:56 Chloride 95 mmol/L (98-107) L 09/22/20 09:56 Carbon Dioxide 13 mmol/L (22-29) L 09/22/20 09:56 BUN 96 mg/dL (8.9-20.6) H 09/22/20 09:56 Creatinine 4.66 mg/dL (0.7-1.3) H 09/22/20 09:56 Glucose 125 mg/dL (70-105) H 09/22/20 09:56 Calcium 8.3 mg/dL (7.8-10.44) 09/22/20 09:56 Total Bilirubin 2.0 mg/dL (0.2-1.2) H 09/22/20 09:56 AST 15 U/L (5-34) 09/22/20 09:56 ALT 12 U/L (8-55) 09/22/20 09:56 Alkaline Phosphatase 88 U/L (40-110) 09/22/20 09:56 Ammonia 270 umol/L (18-72) H 09/22/20 10:12 Serum Total Protein 6.6 g/dL (6.0-8.3) 09/22/20 09:56 Albumin 3.0 g/dL (3.5-5.0) L 09/22/20 09:56 Hospitalist H&P A/P - Plan Plan: This is a 35-year-old male patient with a history of decompensated liver cirrhosis referred to the ED by his pattern scratcher on account of acutely worsening renal function and he is also somnolent. Acute metabolic encephalopathy Multifactorialhepatic encephalopathy/uremia/hyponatremia Ammonia 270, urea 96 Also possible concern for sepsispossible SBP Monitor in IMCU Hepatic encephalopathy Given lactulose 20 g at presentation however plus no stools. We will continue 20 g every 2 till he passes stools. Antibiotics for possible SBP Monitoring IMCU Uremia Creatinine up from 1.21 08/15/2022 to 3.15 on to 4.66 today. This may be chronic gradual deterioration However possible acute on chronic from compartment syndrome from very tense ascites. Will order stat paracentesis Consult nephrology DANNY on CKD Compartment/hepatorenal syndrome Start Albumin as per nephrology Nephrology consulted Massive ascites Abdomen is very tense with dilated veins Paracentesis ordered Labs for SBP Hyponatremia Sodium 123 Likely secondary to DANNY/decompensated liver disease Sodium and water restriction Monitor BMP Appreciate nephrology input Anemia Hemoglobin stable above 8 The setting of CKD We will monitor Transfuse if hemoglobin goes below 7 Thrombocytopenia This is chronic in the setting of hepatic cirrhosis We will monitor VT prophylaxis SCDs CODE STATUS full code
--- NOTE | 2020-09-22 14:28 | CT ---
CT BRAIN WITHOUT CONTRAST: 09/22/2020 HISTORY: Altered mental status. Acute encephalopathy. COMPARISON: 08/11/2020, 05/17/20. Changes of diffuse atrophy are again seen. The ventricular size is stable and the basilar cisterns patent. Donovan cisterna magna is stable. No evidence of acute infarct, hemorrhage, midline shift or abnormal extra-axial fluid collections are seen. The bony calvarium is intact. The visualized paranasal sinuses and mastoid air cells are well aerated. IMPRESSION: No CT evidence of acute intracranial process.
[2020-09-22] MEDS ORDERED: Lidocaine 1% PF 5 ML VIAL ONE (14:45)
[2020-09-22] MEDS ORDERED: Sodium Bicarbonate 2.5 MEQ/5 ML VIAL ONE (14:45)
[2020-09-22] MEDS: cefTRIAXone\\ROCEPHIN 1 GM in Sodium Chloride 0.9% 100 ML IVPB SCH (16:17)
[2020-09-22 16:24] VITALS: BMI 24.2
--- NOTE | 2020-09-22 17:44 | RAD ---
PORTABLE CHEST: 09/22/20 HISTORY: Hepatic encephalopathy. COMPARISON: 08/12/20. Lungs appear clear. No infiltrate identified. No evidence of interval change. An NG tube passes throu gh the EG junction and is coiled within this gastric fundus. IMPRESSION: No acute lung process identified. The left apex is not included. POS: AGW
[2020-09-22] MEDS: Albumin 25% 25 GM/100 ML BOT IVPB SCH (17:45)
[2020-09-22] MEDS: Sodium Chloride 0.9% 1,000 ML IV SCH (17:51)
[2020-09-22] MEDS ORDERED: Chloraseptic Spray 180 ml Bottle PO PRN (19:49)
--- NOTE | 2020-09-22 20:20 | CON ---
DATE OF CONSULTATION: 09/22/2020 CONSULTING PHYSICIAN: Alexey Olvera MD REASON FOR CONSULTATION: Hepatic encephalopathy. HISTORY OF PRESENT ILLNESS: Mr. Carnes is a 35-year-old gentleman with cirrhosis secondary to alcohol abuse. His serologic workup for other viruses and autoimmune factors have been negative in the past. He has not drank since May when he first presented to this hospital and had upper GI hemorrhage requiring an EGD with banding of esophageal varices on June 29 of this year. In the outpatient setting, he has had issues with recurrent encephalopathy as well as refractory ascites, which he gets tapped every two weeks with albumin infusion. More recently, he has had an increase in his BUN and creatinine and his diuretics were held. His baseline creatinine back in May was crept up to about 1.5 in July, but on July 13 was 3.15 and on admission today is 4.66. The patient's fiancee is here in the room. She notes that when she is going to work this morning, he was a little bit confused, but having bowel movements. He had about 2 or 3 in the last day. He has had no fever or chills. No melena, hematochezia, or hematemesis. He takes no sedatives or sleep aids. They were called by Dr. Bueno today and told to come to the hospital because of his creatinine, they had seen him for the first time yesterday. PAST MEDICAL HISTORY: Alcoholic cirrhosis, history of esophageal varices bleeding and banding in 2013, encephalopathy, and refractory ascites. MEDICATIONS: At home; 1. B12. 2. Folic acid. 3. Lactulose. 4. Protonix. 5. Thiamine. Medicines here; 1. Rifaximin. 2. Lactulose 20 q.2. 3. Rocephin. 4. Albumin IV q.6. PHYSICAL EXAMINATION: GENERAL: The patient is resting in bed. He is not really responsive. VITAL SIGNS: Pulse is 104 and temperature is 98.4. He has been afebrile since admission. Blood pressure 115/71 to 107/68. HEENT: He is mildly icteric. He has muscle wasting and temporal wasting. He will moan to painful stimuli, will not open his eyes or follow commands. NECK: Supple without nodes. LUNGS: Clear. HEART: Regular without clicks or murmurs. ABDOMEN: Soft and nontender. There is some protuberant with shifting dullness and fluid waves. Umbilical hernia is reducible. There are no inguinal hernias. EXTREMITIES: No clubbing, cyanosis, or edema. LABORATORY STUDIES: Sodium 123 down from 134 on 08/15 and 137 on 08/13, potassium 4, BUN and creatinine 96 and 4.66, bilirubin is 2, AST and ALT are 15 and 12, ammonia is 270 of 2015, albumin is 3, and protein 6.6. Urine, 2+ bilirubin, negative white blood cells or blood or nitrites. INR is 2. White count 8.6 and 8.9, baseline around 5, hemoglobin is 8.2 and stable, and platelet count 80,000 up from 38,000 back in July. Last tap, his states was last week and was 6 L. RADIOLOGY: He had a brain CT scan on 09/22 today, which was normal. ASSESSMENT: 1. Hepatic encephalopathy of unclear etiology. It seems he has been taking his lactulose, although he has had some admissions in the past thus he is very dehydrated. His diuretics were stopped, his fiancee said about two weeks ago. He shows no overt signs of infection, but it is always an underlying concern. 2. Refractory ascites. 3. Cirrhosis and end-stage with above-noted complications. RECOMMENDATIONS: 1. Agree with albumin. We will start IV fluids as well. Paracentesis for SBP tomorrow. Empiric antibiotics started today. Albumin infusions agree. 2. Renal consult, Dr. Bueno. He can see him tomorrow, that is fine. 3. Post culture. 4. Urine drug screen. Job ID: [id number]
[2020-09-22] MEDS: Rifaximin 550 MG TAB PO SCH (21:35)
[2020-09-22 22:50] LABS: Bacteria/HPF None Seen HPF (None Seen); Bilirubin Negative (Negative); Blood, Urine Negative (Negative); Clarity Clear (Clear); Glucose, Urine (Dipstick) Normal (Negative); Ketone, Urine Negative (Negative); Leukocyte Negative Leu/uL (Negative); Nitrite Negative (Negative); Protein, Urine (Dipstick) 10 mg/dL (Neg-Trace); RBC/HPF 0-3 HPF (0-3); Specific Gravity, Urine 1.016 (1.002-1.036); Squamous Epithelial None Seen HPF (0-3); Urobilinogen Normal mg/dL (Less than 2); WBC/HPF 0-3 HPF (0-3); pH, Urine 5.5 (5.0-9.0)
[2020-09-22 22:55] LABS: Urine Culture Reflex No No
[2020-09-22 23:01] LABS: Amphetamine Not Detected (NotDetected); Barbiturates Screen Not Detected (NotDetected); Benzodiazepine Screen Not Detected (NotDetected); Cocaine Metabolite Screen Not Detected (NotDetected); Medtox Control Line Valid? VALID (VALID); Medtox Reader # READER 4; Methadone Not Detected (NotDetected); Methamphetamine Not Detected (NotDetected); Opiate Screen Not Detected (NotDetected); Oxycodone Screen Not Detected (NotDetected); Phencyclidine (PCP) Not Detected (NotDetected); THC/Cannabinoid Screen Not Detected (NotDetected); Tricyclic Screen Not Detected (NotDetected)
[2020-09-23] MEDS: Albumin 25% 25 GM/100 ML BOT IVPB SCH ×4 (00:21→17:31)
[2020-09-23 03:32] LABS: #Eosinphils 0.1 thou/uL (0.0-0.7); #Lymphocytes 0.6 thou/uL (1.20-3.40); #Monocytes 1.3 thou/uL (0.11-0.59); #Neutrophils 9.6 thou/uL (1.40-6.50); %Basophils 0.1 % (0.0-1.0); %Eosinophils 0.8 % (0.0-10.0); %Lymphocytes 5.2 % (21.0-51.0); %Monocytes 10.9 % (0.0-10.0); Hemoglobin 8.5 g/dL (14.0-18.0); Mean Corpuscular HGB CONC 35.3 g/dL (32.0-36.0); Mean Corpuscular Hemoglobin 31.6 pg (27.0-31.0); Mean Corpuscular Volume 89.4 fL (78.0-98.0); Mean Platelet Volume 7.2 fL (7.4-10.4); Platelet Count 79 thou/uL (130-400); RBC Distribution Width 13.6 % (11.5-14.5); Red Blood Cell (RBC) Count 2.71 mill/uL (4.70-6.10); White Blood Cell (WBC) Count 11.6 thou/uL (4.8-10.8)
[2020-09-23 03:56] LABS: Anion Gap 22 mmol/L (10-20); BUN (Urea Nitrogen) 105 mg/dL (8.9-20.6); Calc. Creatinine Clearance 23 mL/min (70-130); Calcium 9.1 mg/dL (7.8-10.44); Chloride 101 mmol/L (98-107); Estimated GFR-MDRD 14; Glucose 132 mg/dL (70-105); Potassium 3.4 mmol/L (3.5-5.1); Sodium 129 mmol/L (136-145)
[2020-09-23 03:59] LABS: Carbon Dioxide 9 mmol/L (22-29)
--- NOTE | 2020-09-23 04:19 | PDOC.EVN ---
Event Note - Event Note Event Note: Nursing called, critical lab, bicarb 9, trending down from 13, on NS IVF. Gave 1 amp NaHC03. Discussed with Dr. Charlton.
[2020-09-23] MEDS ORDERED: Sodium Bicarb 50 MEQ/50 ML Abboject 8.4% SYRINGE IVP SCH (04:30)
--- NOTE | 2020-09-23 06:43 | CON ---
DATE OF CONSULTATION: 09/22/2020 CONSULTING PHYSICIAN: Dr. Olvera. REASON FOR CONSULTATION: Acute kidney injury. REASON FOR ADMISSION: Altered mentation, abnormal labs. HISTORY OF PRESENT ILLNESS: This is a 35-year-old male with history of alcoholic liver cirrhosis, ascites, CKD, esophageal varices, hep C, came to the hospital because of abnormal labs. His creatinine was worsening per Dr. Bueno's office and he was sent to the hospital. No fever or chills. No nausea or vomiting reported, but the patient is not able to give a good history and no family members available. PAST MEDICAL HISTORY: Positive for; 1. Cirrhosis. 2. CKD. 3. Hepatic encephalopathy. 4. Hepatitis C. 5. Alcoholic liver cirrhosis. PAST SURGICAL HISTORY: Reviewed. HOME MEDICATIONS: Reviewed. No diuretics reported. ALLERGIES: BLACKBERRIES. SOCIAL HISTORY: History of alcohol use. No illicit drug abuse. FAMILY HISTORY: No history of kidney disease. REVIEW OF SYSTEMS: Could not be obtained due to the patient being somnolent and encephalopathic. OBJECTIVE: GENERAL: This is a well-built male, in no apparent distress. VITAL SIGNS: Temperature 98.4, pulse 88, respiratory rate 18, blood pressure 106/70. HEENT: Atraumatic, normocephalic. NECK: Supple. CV: S1, S2 heard. RESPIRATORY: Clear. GI: Abdomen is soft, distended with ascites. MUSCULOSKELETAL: 1+ edema. DERMATOLOGIC: rash present NEUROLOGICAL: Somnolent. LABORATORY DATA: Hemoglobin 8.2. Sodium 123, potassium 4.0, BUN is 96, creatinine is 4.6. ASSESSMENT AND PLAN: 1. Acute kidney injury on chronic kidney disease stage 3 with worsening labs. We will give albumin. 2. Hyponatremia, most likely from fluid overload. Agree with . 3. Ascites with cirrhosis and possible hepatic encephalopathy. 4. Hypoalbuminemia, moderate. 5. Anemia. 6. Edema. 7. Hypotension. Prognosis is very guarded. We will try albumin. Follow up with GI for further recommendation for possible hepatorenal syndrome. The patient remains high risk for complications. No acute indication for dialysis. Agree with paracentesis. We will follow. Thank you for the consult. Job ID: [id number] [facility]
[2020-09-23] MEDS: FLU VACC QS2020-21(6MOS UP)/PF 60 MCG/0.5 ML SYRINGE IM ONE (06:57)
[2020-09-23] MEDS: Sodium Chloride 0.9% 1,000 ML IV SCH (07:18)
[2020-09-23] MEDS: Pantoprazole 40 MG VIAL IVP SCH (07:18)
[2020-09-23] MEDS: Rifaximin 550 MG TAB PO SCH ×2 (07:19→22:00)
[2020-09-23] MEDS ORDERED: Sodium Bicarbonate 2.5 MEQ/5 ML VIAL ONE (07:50)
[2020-09-23 08:21] LABS: INR-International Normal Ratio 1.8; Prothrombin Time 21.6 sec (12.0-14.7)
[2020-09-23 08:22] LABS: PTT 45.2 sec (22.9-36.1)
[2020-09-23] MEDS ORDERED: Prevnar 13-Val Conj/PF 0.5 ML SYRINGE IM ONE (09:00)
[2020-09-23] MEDS: Sodium Bicarbonate 100 MEQ in Dextrose 5% in Water 1,000 ML IV SCH (09:15)
--- NOTE | 2020-09-23 09:23 | ULT ---
US Paracentesis with Imaging History: Ascites Comparison: Ultrasound paracentesis September 16, 2020 Findings: Patient was brought to the ultrasound suite. All questions were answered. Informed consent obtained. Timeout performed. Patient's right lower quadrant was prepped and draped in normal sterile fashion. Using ultrasound vanessa dance after adequate local anesthesia a 5 [place] catheter was used to access the right lower quadrant peritoneal space. 9.2 L of straw-colored fluid was removed. Patient tolerated the procedure well without complication. Impression: Technically successful ultrasound-guided paracentesis.
--- NOTE | 2020-09-23 10:21 | PDOC.HOSPP ---
- Subjective Encounter Date: 09/23/20 Encounter Time: 10:19 Subjective: Mr. Carnes was seen today in follow-up of hepatic encephalopathy, and acute kidney injury. He is still confused, but able to answer a few questions. - Objective Vital Signs & Weight: Vital Signs (12 hours) Temp Pulse Ox 09/23/20 08:00 100 09/23/20 07:52 97.2 F L 09/23/20 04:03 97.3 F L 09/23/20 00:38 98.7 F Weight Weight 172 lb 7 oz Most Recent Monitor Data Heart Rate from ECG 91 NIBP 118/73 NIBP BP-Mean 88 Respiration from ECG 23 SpO2 100 Result Diagrams: 09/23/20 03:13 09/23/20 03:13 Hospitalist ROS - Medication Medications: Active Medications Generic Name Dose Route Start Last Admin Trade Name Freq PRN Reason Stop Dose Admin Albumin Human 25 gm 09/22/20 18:00 09/23/20 06:22 Albumin 25% 25 Gm/100 Ml Bot IVPB 09/23/20 18:01 25 gm Q6HR RENARD Administration Ceftriaxone Sodium 1 gm/ 100 mls @ 200 mls/hr 09/22/20 14:00 09/22/20 16:17 Sodium Chloride IVPB Not Given Q24HR RENARD Sodium Bicarbonate 100 meq/ 1,100 mls @ 75 mls/hr 09/23/20 07:45 09/23/20 09:15 Dextrose/Water IV 1,100 mls .[id number] RENARD Administration Lactulose 20 gm 09/22/20 14:00 09/23/20 07:19 Lactulose 20 Gm/30 Ml Udcup PO 20 gm Q2HR RENARD Administration Pantoprazole Sodium 40 mg 09/23/20 09:00 09/23/20 07:18 Pantoprazole 40 Mg Vial IVP 40 mg DAILY RENARD Administration Phenol 0 ml 09/22/20 19:49 09/22/20 21:[address] [place] 180 Ml Bottle PO 1 spr BIDPRN PRN Administration Sore Throat Rifaximin 550 mg 09/22/20 21:00 09/23/20 07:19 Rifaximin 550 Mg Tab PO 550 mg BID RENARD Administration - Exam Eye: PERRL, scleral icterus Heart: RRR, no gallops, no rubs, normal peripheral pulses, murmur present, II/IV Respiratory: CTAB, no wheezes, no rales, no ronchi, normal chest expansion, no tachypnea Gastrointestinal: soft (+ stigmata of chronic liver disease), distended (+ flank dullness) Extremities: no cyanosis, no edema Hosp A/P (1) Acute kidney injury Code(s): N17.9 - ACUTE KIDNEY FAILURE, UNSPECIFIED Status: Acute (2) Ascites Code(s): R18.8 - OTHER ASCITES Status: Chronic (3) Alcohol abuse Code(s): F10.10 - ALCOHOL ABUSE, UNCOMPLICATED Status: Chronic (4) Chronic hepatitis C Code(s): B18.2 - CHRONIC VIRAL HEPATITIS C Status: Chronic Qualifiers: Hepatic coma status: without hepatic coma Qualified Code(s): B18.2 - C hronic viral hepatitis C (5) Cirrhosis Code(s): K74.60 - UNSPECIFIED CIRRHOSIS OF LIVER Status: Chronic Qualifiers: Hepatic cirrhosis type: alcoholic cirrhosis Ascites presence: with ascites Qualified Code(s): K70.31 - Alcoholic cirrhosis of liver with ascites (6) Anemia Code(s): D64.9 - ANEMIA, UNSPECIFIED Status: Acute - Plan * Acute kidney injur- there is concern for hepatorenal syndrome- will await Nephrology recommendations * Ascites- Massive- he is s/p large volume paracentesis- agree with IV Albumin * Hepatic encephalopathy- improved some from last night- continue Lactulose, and Rifixamin * Anemia- will need to monitor his H&H- continue Protonix * Cirrhosis- decompensated- GI has been consulted * He has advanced cirrhosis, with an elevated MELD score, and his overall prognosis is poor. Will consult Palliative care for goals of care, and advanced directives , as well as family support.
--- NOTE | 2020-09-23 12:12 | PRG ---
DATE OF SERVICE: 09/23/2020 SUBJECTIVE: The patient was seen and examined at bedside. Mother was at the bedside. The patient remains somnolent, not able to verbal communication. OBJECTIVE: GENERAL: This is a thin built male. VITAL SIGNS: Temperature 97.2, pulse 91, respiratory rate 20, and blood pressure 118/73. HEENT: Atraumatic, normocephalic. CVS: S1 and S2 heard. RESPIRATORY: Clear. MUSCULOSKELETAL: 1+ edema. GI: Abdomen is distended. NEUROLOGIC: Somnolent. LABORATORY DATA: Potassium 3.4, sodium 129, BUN is 105, and creatinine is 4.7. ASSESSMENT AND PLAN: 1. Acute kidney injury on chronic kidney disease, stage 4, with worsening labs, most likely seems to be hepatorenal with volume depletion. Agree with albumin and IV fluids. 2. Severe acidosis. Agree with changing to bicarb drip. 3. Hyponatremia, better. 4. Hypokalemia. 5. Azotemia. 6. Hepatorenal syndrome. 7. Ascites with edema. 8. Hypertension. 9. History of cirrhosis. Prognosis is guarded. We will continue conservative measures. No acute indication for dialysis. The patient will be poor candidate for dialysis given the comorbidities. We will follow. Job ID: [id number]
[2020-09-23 12:56] LABS: SARS-CoV-2 MS2 Positive; SARS-CoV-2 N Gene Negative; SARS-CoV-2 S Gene Negative; SARS-CoV-2 by NAA Not Detected (NotDetected); SARS-CoV-2 orf1ab Negative
[2020-09-23] MEDS: cefTRIAXone\\ROCEPHIN 1 GM in Sodium Chloride 0.9% 100 ML IVPB SCH (14:41)
--- NOTE | 2020-09-23 15:58 | PRG ---
DATE OF SERVICE: 09/23/2020 SUBJECTIVE: Mr. Carnes has woken up a bit since yesterday. He is able to answer questions about his symptoms. He is not really oriented to place or time. He has been receiving lactulose per nasogastric tube every 2 hours. He has had only one bowel movement so far today, nonbloody. He continues on IV ceftriaxone and IV albumin. He is not complaining of any abdominal pain or nausea. He had a 9.2 L paracentesis earlier today. OBJECTIVE: VITAL SIGNS: Temperature 97.2, pulse 91, blood pressure 106/54, 100% oxygen saturation on room air. GENERAL: Critically ill 35-year-old man lying in bed, in no acute distress. He is somnolent, but easily arousable. HEART: Regular rate and rhythm. LUNGS: Clear to auscultation bilaterally. ABDOMEN: Mild distention with ascites. Nontender to palpation. Bowel sounds present. EXTREMITIES: 1+ bilateral lower extremity edema. LABORATORY STUDIES: Sodium 129, potassium 3.4, BUN up to 105, creatinine up to 4.74, carbon dioxide down to 9, total bilirubin 2.0, alkaline phosphatase 88, AST 15, ALT 12, ammonia down from 270 to 147, albumin is 3.0. INR 1.8. Urine tox screen negative. COVID PCR negative. ASSESSMENT AND PLAN: 1. Acute on chronic renal failure, appears secondary to hepatorenal syndrome. Appreciate Nephrology assistance. The patient is getting IV albumin 25 g every 6 hours and status post large volume paracentesis. 2. Ascites. The patient had a 9.2 L paracentesis earlier today. Awaiting fluid studies. He is on empiric ceftriaxone as appropriate. 3. Hepatic encephalopathy. There has been some improvement from yesterday evidently. Continue lactulose per nasogastric tube for now, being aggressive with this. Also, continue rifaximin. Hopefully, mental status will further improve to the point where he can start taking orally. 4. Alcoholic cirrhosis with ascites, decompensated. Overall prognosis remains quite poor. I see Palliative Care has been consulted. Job ID: [id number]
[2020-09-23] MEDS ORDERED: Potassium Chloride 40 MEQ in Sodium Chloride 0.9% 250 ML 250 ML IVPB SCH (18:30)
[2020-09-24] MEDS: Sodium Bicarbonate 100 MEQ in Dextrose 5% in Water 1,000 ML IV SCH ×2 (01:08→14:06)
--- NOTE | 2020-09-24 07:54 | PDOC.HOSPP ---
- Subjective Encounter Date: 09/24/20 Encounter Time: 08:15 Subjective: Mr. Carnes is a 35 year old male being followed for hepatic encephalopathy and DANNY. Patient is more alert today and able to answer questions. He stated he only slept a little. Stated he was in no pain, only discomfort. - Objective Vital Signs & Weight: Vital Signs (12 hours) Temp Pulse Ox 09/24/20 07:30 99 09/24/20 07:23 96.6 F L 09/24/20 05:08 97.6 F 09/24/20 01:16 97.2 F L 09/23/20 20:48 97.6 F 09/23/20 20:00 100 Weight Weight 147 lb 4.8 oz Most Recent Monitor Data Heart Rate from ECG 85 NIBP 114/72 NIBP BP-Mean 86 Respiration from ECG 17 SpO2 100 I&O: 09/23/20 09/24/20 09/25/20 06:59 06:59 06:59 Intake Total 1075 Output Total 350 Balance 725 Result Diagrams: 09/24/20 08:11 09/24/20 08:11 Hospitalist ROS - Review of Systems Constitutional: reports: other. denies: fever, chills Eyes: denies: vision change Respiratory: denies: cough, shortness of breath Cardiovascular: denies: chest pain, palpitations Gastrointestinal: denies: nausea, vomiting, diarrhea Neurological: denies: numbness - Medication Medications: Active Medications Generic Name Dose Route Start Last Admin Trade Name Freq PRN Reason Stop Dose Admin Ceftriaxone Sodium 1 gm/ 100 mls @ 200 mls/hr 09/22/20 14:00 09/23/20 14:41 Sodium Chloride IVPB 100 mls Q24HR RENARD Administration Sodium Bicarbonate 100 meq/ 1,100 mls @ 75 mls/hr 09/23/20 07:45 09/24/20 01:08 Dextrose/Water IV 1,100 mls .[id number] RENARD Administration Lactulose 20 gm 09/22/20 14:00 09/24/20 07:09 Lactulose 20 Gm/30 Ml Udcup PO Not Given Q2HR RENARD Pantoprazole Sodium 40 mg 09/23/20 09:00 09/23/20 07:18 Pantoprazole 40 Mg Vial IVP 40 mg DAILY RENARD Administration Phenol 0 ml 09/22/20 19:49 09/22/20 21:36 Chloraseptic [place] 180 Ml Bottle PO 1 spr BIDPRN PRN Administration Sore Throat Rifaximin 550 mg 09/22/20 21:00 09/23/20 22:00 Rifaximin 550 Mg Tab PO Not Given BID RENARD - Exam General Appearance: awake alert Heart: RRR, no murmur, no gallops, no rubs Respiratory: CTAB, no wheezes, no rales, no ronchi Gastrointestinal: soft, non-tender, normal bowel sounds, distended Gastrointestinal - other findings: Flank dullness with shifting dullness Extremities: no cyanosis, no clubbing, no edema Psychiatric: oriented to person, oriented to place Hosp A/P (1) Acute kidney injury Code(s): N17.9 - ACUTE KIDNEY FAILURE, UNSPECIFIED Status: Acute (2) Ascites Code(s): R18.8 - OTHER ASCITES Status: Chronic (3) Alcohol abuse Code(s): F10.10 - ALCOHOL ABUSE, UNCOMPLICATED Status: Chronic (4) Chronic hepatitis C Code(s): B18.2 - CHRONIC VIRAL HEPATITIS C Status: Chronic Qualifiers: Hepatic coma status: without hepatic coma Qualified Code(s): B18.2 - Chronic viral hepatitis C (5) Cirrhosis Code(s): K74.60 - UNSPECIFIED CIRRHOSIS OF LIVER Status: Chronic Qualifiers: Hepatic cirrhosis type: alcoholic cirrhosis Ascites presence: with ascites Qualified Code(s): K70.31 - Alcoholic cirrhosis of liver with ascites (6) Anemia Code(s): D64.9 - ANEMIA, UNSPECIFIED Status: Acute - Plan * Acute kidney injury- likely hepatorenal syndrome as per Nephrology * Ascites- Massive- he is s/p large volume paracentesis- agree with IV Albumin * Hepatic encephalopathy- improved some from yesterday- continue Lactulose, and Rifixamin * Anemia- will need to monitor his H&H- continue Protonix * Cirrhosis- decompensated- GI has been consulted * He has advanced cirrhosis, with an elevated MELD score, and his overall prognosis is poor. Will consult Palliative care for goals of care, and advanced directives , as well as family support. * * Patient seen and examined and discussed with Lilly Gallagher, MS-3, and agree with above. Patient is slightly more alert today, but still appears extremely weak. He continues to have ascites on exam. His renal function has not improved much since admission. He has advanced liver disease, and severe malnutrition. His overall prognosis is guarded. He likely could benefit from Palliative care and even Hospice. A Palliative Care consult has been placed.
[2020-09-24 08:23] LABS: Platelet Count 62 thou/uL (130-400)
[2020-09-24 08:25] LABS: #Eosinphils 0.1 thou/uL (0.0-0.7); #Lymphocytes 0.7 thou/uL (1.20-3.40); #Monocytes 1.4 thou/uL (0.11-0.59); #Neutrophils 10.1 thou/uL (1.40-6.50); %Lymphocytes 5.9 % (21.0-51.0); %Monocytes 11.5 % (0.0-10.0); %Neutrophils 81.5 % (42.0-75.0); Hemoglobin 7.8 g/dL (14.0-18.0); Mean Corpuscular HGB CONC 34.9 g/dL (32.0-36.0); Mean Corpuscular Hemoglobin 31.6 pg (27.0-31.0); Mean Corpuscular Volume 90.6 fL (78.0-98.0); Mean Platelet Volume 8.2 fL (7.4-10.4); RBC Distribution Width 14.1 % (11.5-14.5); Red Blood Cell (RBC) Count 2.46 mill/uL (4.70-6.10); White Blood Cell (WBC) Count 12.4 thou/uL (4.8-10.8)
[2020-09-24 08:43] LABS: Anion Gap 22 mmol/L (10-20); BUN (Urea Nitrogen) 115 mg/dL (8.9-20.6); Calc. Creatinine Clearance 21 mL/min (70-130); Calcium 8.9 mg/dL (7.8-10.44); Carbon Dioxide 13 mmol/L (22-29); Chloride 103 mmol/L (98-107); Estimated GFR-MDRD 14; Glucose 142 mg/dL (70-105); Sodium 135 mmol/L (136-145)
[2020-09-24 08:47] LABS: Potassium 2.6 mmol/L (3.5-5.1)
--- NOTE | 2020-09-24 10:34 | PRG ---
DATE OF SERVICE: 09/24/2020 SUBJECTIVE: Patient is seen at the bedside. Remains confused. OBJECTIVE: GENERAL: A thin built male, confused. VITAL SIGNS: Temperature 96.6, pulse 92, respiratory rate 18, blood pressure 100/70. HEENT: Atraumatic, normocephalic. CV: S1, S2. RESPIRATORY: Clear. GI: Distended MUSCULOSKELETAL: 1+ edema. NEUROLOGIC: Confused. LABORATORY DATA: Potassium 2.6, BUN 115, creatinine is 4.6. ASSESSMENT AND PLAN: 1. Acute kidney injury on chronic kidney disease stage 4. No acute indication for dialysis. 2. Hypokalemia. Cautious replacement recommended with close monitoring. 3. Hyponatremia, much better. 4. Acidosis better. Continue on bicarb. 5. Hepatorenal syndrome. 6. Hypertension. 7. History of cirrhosis. 8. Ascites with edema. Prognosis guarded. No acute indication for dialysis. Continue bicarb drip and potassium supplements with close monitoring of potassium. We will follow. Job ID: [id number]
[2020-09-24] MEDS: Pantoprazole 40 MG VIAL IVP SCH (10:40)
[2020-09-24] MEDS: Rifaximin 550 MG TAB PO SCH ×2 (10:40→20:33)
[2020-09-24] MEDS ORDERED: Potassium Chloride 40 MEQ in Sodium Chloride 0.9% 250 ML 250 ML IVPB SCH (11:00)
--- NOTE | 2020-09-24 13:32 | PRG ---
DATE OF SERVICE: 09/24/2020 SUBJECTIVE: Mr. Carnes finally started having a lot of bowel movements overnight. These are nonbloody. He denies any abdominal pain or shortness of breath. He has had some interval improvement in mental status, though he remains quite sleepy, but he is arousable and able to answer some questions appropriately. OBJECTIVE: VITAL SIGNS: Temperature 97.2, heart rate 85, blood pressure 108/72, and 100% oxygen saturation on room air. GENERAL: Chronically ill, nontoxic, and somnolent, but arousable. A nasogastric tube in place, which is clamped. HEART: Regular rate and rhythm. LUNGS: Clear to auscultation bilaterally. ABDOMEN: Distended with ascites, not tense. Bowel sounds are present. Soft and nontender to palpation. EXTREMITIES: No peripheral edema. LABORATORY STUDIES: WBC 12.4, hemoglobin 7.8, and platelets are 62. INR 1.8. Sodium 135, potassium 2.6, BUN 115, creatinine 4.65, glucose 142, ammonia 131, calcium 8.9. ASSESSMENT/PLAN: 1. Acute on chronic renal failure, appears secondary to hepatorenal syndrome. Nephrology continues to follow, the patient does not need dialysis today. Estimated GFR is 14. We will give him another 100 mg albumin IV today. He is status post large volume paracentesis yesterday. 2. Ascites. He is status post 9.2 L paracentesis yesterday. Unable to give diuretics in light of hepatorenal syndrome. 3. Hepatic encephalopathy. There has been some continued improvement. Ammonia still remains elevated. He has been having copious bowel movements now. We can change the lactulose to t.i.d. dosing, I have advised the nurse she can give this orally and see how he does. We will go ahead and advance his diet now that he is more awake. 4. Alcoholic cirrhosis with ascites, decompensated. Overall prognosis remains quite poor. Appreciate the assistance of Palliative Care Team. I think the patient is a good candidate for hospice if that is what he and the family desire. Job ID: [id number] [facility]
[2020-09-24 14:32] LABS: Magnesium 2.3 mg/dL (1.6-2.6)
[2020-09-24 14:36] LABS: Potassium 2.7 mmol/L (3.5-5.1)
[2020-09-24] MEDS: Albumin 25% 25 GM/100 ML BOT IVPB SCH ×2 (15:57→20:35)
[2020-09-24] MEDS: cefTRIAXone\\ROCEPHIN 1 GM in Sodium Chloride 0.9% 100 ML IVPB SCH (15:57)
[2020-09-25] MEDS: Albumin 25% 25 GM/100 ML BOT IVPB SCH ×4 (03:38→21:17)
[2020-09-25] MEDS: Sodium Bicarbonate 100 MEQ in Dextrose 5% in Water 1,000 ML IV SCH ×2 (05:23→11:45)
[2020-09-25] MEDS: Rifaximin 550 MG TAB PO SCH ×2 (08:49→21:17)
[2020-09-25] MEDS: Pantoprazole 40 MG VIAL IVP SCH (08:49)
[2020-09-25] MEDS: cefTRIAXone\\ROCEPHIN 1 GM in Sodium Chloride 0.9% 100 ML IVPB SCH (13:29)
[2020-09-25 14:18] LABS: Anion Gap 24 mmol/L (10-20); BUN (Urea Nitrogen) 110 mg/dL (8.9-20.6); Calc. Creatinine Clearance 26 mL/min (70-130); Calcium 8.3 mg/dL (7.8-10.44); Carbon Dioxide 12 mmol/L (22-29); Chloride 95 mmol/L (98-107); Estimated GFR-MDRD 17; Glucose 181 mg/dL (70-105); Sodium 128 mmol/L (136-145)
--- NOTE | 2020-09-25 14:31 | PDOC.NEPPN ---
- Subjective Encounter Date: 09/25/20 Subjective: Patient is seen in the room. Patient is having loose BM. Patient's was present in the room at the time of examination. He is currently on bicarbonate drip does and not complain of pain. - Objective Vital Signs & Weight: Vital Signs (12 hours) Temp Pulse Resp BP Pulse Ox 09/25/20 11:49 98.1 F 88 17 108/64 100 09/25/20 08:30 97.9 F 95 18 101/56 L 100 09/25/20 03:40 98.0 F 102 H 18 97/55 L 100 Weight Weight 157 lb 9.6 oz Most Recent Monitor Data Heart Rate from ECG 85 NIBP 113/66 NIBP BP-Mean 81 Respiration from ECG 21 SpO2 100 I&O: 09/24/20 09/25/20 09/26/20 06:59 06:59 05:59 Intake Total 1075 Output Total 350 Balance 725 Result Diagrams: 09/26/20 04:01 09/26/20 04:01 Nephrology ROS - Review of Systems Other: Review of systems Gen.: No fever, no chills All the 14 systems reviewed except for the ones mentioned above are negative - Medication Medications: Active Medications Generic Name Dose Route Start Last Admin Trade Name Freq PRN Reason Stop Dose Admin Albumin Human 25 gm 09/25/20 14:00 09/25/20 13:30 Albumin 25% 25 Gm/100 Ml Bot IVPB 09/25/20 20:01 25 gm 0200,0800,1400,2000 RENARD Administration Ceftriaxone Sodium 1 gm/ 100 mls @ 200 mls/hr 09/22/20 14:00 09/25/20 13:29 Sodium Chloride IVPB 100 mls Q24HR RENARD Administration Sodium Bicarbonate 100 meq/ 1,100 mls @ 75 mls/hr 09/23/20 07:45 09/25/20 11:45 Dextrose/Water IV 1,100 mls .[id number] RENARD Administration Lactulose 20 gm 09/24/20 15:00 09/25/20 08:49 Lactulose 20 Gm/30 Ml Udcup PO 20 gm TID RENARD Administration Pantoprazole Sodium 40 mg 09/23/20 09:00 09/25/20 08:49 Pantoprazole 40 Mg Vial IVP 40 mg DAILY RENARD Administration Phenol 0 ml 09/22/20 19:49 09/22/20 21:36 Chloraseptic [place] 180 Ml Bottle PO 1 spr BIDPRN PRN Administration Sore Throat Rifaximin 550 mg 09/22/20 21:00 09/25/20 08:49 Rifaximin 550 Mg Tab PO 550 mg BID RENARD Administration Sodium Chloride 10 ml 09/24/20 21:00 09/25/20 11:46 Flush - Normal Saline 10 Ml Syringe IVF 10 ml Q12HR RENARD Administration - Exam General Appearance: ill appearing (Patient appears malnourished, is currently not in pain or discomfort) Eye: PERRL ENT: normocephalic atraumatic Neck: supple, no lymphadenopathy Respiratory - other findings: air entry equal bilateral, decreased at bases, no wheezing Cardiovascular: no rubs Gastrointestinal: soft, non-tender Gastrointestinal - other findings: Distended with prominent superficial veins. Everted umbilicus Extremities: no cyanosis Skin: no rashes Neurological: CN's grossly intact Neurological - other findings: Patient is awake following commands Musculoskeletal: generalized weakness PSYCH: normal affect, normal behavior, A&O x 3 Nephrology Results - Labs Result Diagrams: 09/26/20 04:01 09/26/20 04:01 Lab results: WBC 12.4 thou/uL (4.8-10.8) H 09/24/20 08:11 Hgb 7.8 g/dL (14.0-18.0) L 09/24/20 08:11 Hct 22.3 % (42.0-52.0) L 09/24/20 08:11 MCV 90.6 fL (78.0-98.0) 09/24/20 08:11 Plt Count 62 thou/uL (130-400) L 09/24/20 08:11 Neutrophils % 81.5 % (42.0-75.0) H 09/24/20 08:11 Sodium 128 mmol/L (136-145) L 09/25/20 13:51 Potassium 2.7 mmol/L (3.5-5.1) L* 09/24/20 13:43 Chloride 95 mmol/L (98-107) L 09/25/20 13:51 Carbon Dioxide 12 mmol/L (22-29) L 09/25/20 13:51 BUN 110 mg/dL (8.9-20.6) H 09/25/20 13:51 Creatinine 4.01 mg/dL (0.7-1.3) H 09/25/20 13:51 Glucose 181 mg/dL (70-105) H 09/25/20 13:51 Calcium 8.3 mg/dL (7.8-10.44) 09/25/20 13:51 Total Bilirubin 2.0 mg/dL (0.2-1.2) H 09/22/20 09:56 AST 15 U/L (5-34) 09/22/20 09:56 ALT 12 U/L (8-55) 09/22/20 09:56 Alkaline Phosphatase 88 U/L (40-110) 09/22/20 09:56 Ammonia 131 umol/L (18-72) H 09/24/20 08:11 Serum Total Protein 6.6 g/dL (6.0-8.3) 09/22/20 09:56 Albumin 3.0 g/dL (3.5-5.0) L 09/22/20 09:56 Urine Ketones Negative mg/dL (Negative) 09/22/20 22:35 Urine Blood Negative (Negative) 09/22/20 22:35 Urine Nitrite Negative (Negative) 09/22/20 22:35 Ur Leukocyte Esterase Negative Kelly/uL (Negative) 09/22/20 22:35 Urine RBC 0-3 HPF (0-3) 09/22/20 22:35 Urine WBC 0-3 HPF (0-3) 09/22/20 22:35 Ur Squamous Epith Cells None Seen HPF (0-3) 09/22/20 22:35 Urine Bacteria None Seen HPF (None Seen) 09/22/20 22:35 Sodium 128 mmol/L (136-145) L 09/25/20 13:51 Potassium 2.7 mmol/L (3.5-5.1) L* 09/24/20 13:43 Chloride 95 mmol/L (98-107) L 09/25/20 13:51 Carbon Dioxide 12 mmol/L (22-29) L 09/25/20 13:51 Anion Gap 24 mmol/L (10-20) H 09/25/20 13:51 BUN 110 mg/dL (8.9-20.6) H 09/25/20 13:51 Creatinine 4.01 mg/dL (0.7-1.3) H 09/25/20 13:51 Glucose 181 mg/dL (70-105) H 09/25/20 13:51 Calcium 8.3 mg/dL (7.8-10.44) 09/25/20 13:51 Magnesium 2.3 mg/dL (1.6-2.6) 09/24/20 13:43 Albumin 3.0 g/dL (3.5-5.0) L 09/22/20 09:56 Nephrology AP PN - Plan Assessment and plan DANNY on CKD stage IV Hypokalemia Metabolic acidosis Hypertension History of cirrhosis Patient had 350 mL of urine documented since morning. Patient's potassium continues to be low due to continuous loss with diarrhea/loose BM but also bicarbonate drip. Continue to replace and monitor potassium levels. Patient's blood pressure is currently stable. He is also receiving albumin infusion. Patient's clinical presentation could be due to hepatorenal syndrome. Discussed treatment options with patient's . Will evaluate daily for renal replacement therapy, overall prognosis is poor. Discussed with RN, patient and patient's in the room.
[2020-09-25 14:34] LABS: Potassium 2.5 mmol/L (3.5-5.1)
--- NOTE | 2020-09-25 16:14 | PDOC.HOSPP ---
- Subjective Encounter Date: 09/25/20 Subjective: The patient reported multiple bowel movements today. - Objective Vital Signs & Weight: Vital Signs (12 hours) Temp Pulse Resp BP Pulse Ox 09/25/20 11:49 98.1 F 88 17 108/64 100 09/25/20 08:30 97.9 F 95 18 101/56 L 100 Weight Weight 157 lb 9.6 oz Most Recent Monitor Data Heart Rate from ECG 85 NIBP 113/66 NIBP BP-Mean 81 Respiration from ECG 21 SpO2 100 I&O: 09/24/20 09/25/20 09/26/20 06:59 06:59 05:59 Intake Total 1075 Output Total 350 Balance 725 Result Diagrams: 09/24/20 08:11 09/25/20 13:51 Hospitalist ROS - Medication Medications: Active Medications Generic Name Dose Route Start Last Admin Trade Name Freq PRN Reason Stop Dose Admin Albumin Human 25 gm 09/25/20 14:00 09/25/20 13:30 Albumin 25% 25 Gm/100 Ml Bot IVPB 09/25/20 20:01 25 gm 0200,0800,1400,2000 RENARD Administration Ceftriaxone Sodium 1 gm/ 100 mls @ 200 mls/hr 09/22/20 14:00 09/25/20 13:29 Sodium Chloride IVPB 100 mls Q24HR RENARD Administration Sodium Bicarbonate 100 meq/ 1,100 mls @ 75 mls/hr 09/23/20 07:45 09/25/20 11:45 Dextrose/Water IV 1,100 mls .[id number] RENRAD Administration Lactulose 20 gm 09/24/20 15:00 09/25/20 16:10 Lactulose 20 Gm/30 Ml Udcup PO 20 gm TID RENARD Administration Pantoprazole Sodium 40 mg 09/23/20 09:00 09/25/20 08:49 Pantoprazole 40 Mg Vial IVP 40 mg DAILY RENARD Administration Phenol 0 ml 09/22/20 19:49 09/22/20 21:36 Chloraseptic [place] 180 Ml Bottle PO 1 spr BIDPRN PRN Administration Sore Throat Rifaximin 550 mg 09/22/20 21:00 09/25/20 08:49 Rifaximin 550 Mg Tab PO 550 mg BID RENARD Administration Sodium Chloride 10 ml 09/24/20 21:00 09/25/20 11:46 Flush - Normal Saline 10 Ml Syringe IVF 10 ml Q12HR RENARD Administration - Exam ENT: normocephalic atraumatic Neck: supple, no JVD Heart: RRR Respiratory: normal chest expansion, no tachypnea Extremities: no cyanosis, no clubbing Neurological: cranial nerve grossly intact, no focal deficits Hosp A/P - Plan Hosp A/P (1) Acute kidney injury Code(s): N17.9 - ACUTE KIDNEY FAILURE, UNSPECIFIED Status: Acute (2) Ascites Code(s): R18.8 - OTHER ASCITES Status: Chronic (3) Alcohol abuse Code(s): F10.10 - ALCOHOL ABUSE, UNCOMPLICATED Status: Chronic (4) Chronic hepatitis C Code(s): B18.2 - CHRONIC VIRAL HEPATITIS C Status: Chronic Qualifiers: Hepatic coma status: without hepatic coma Qualified Code(s): B18.2 - Chronic viral hepatitis C (5) Cirrhosis Code(s): K74.60 - UNSPECIFIED CIRRHOSIS OF LIVER Status: Chronic Qualifiers: Hepatic cirrhosis type: alcoholic cirrhosis Ascites presence: with ascites Qualified Code(s): K70.31 - Alcoholic cirrhosis of liver with ascites (6) Anemia Code(s): D64.9 - ANEMIA, UNSPECIFIED Status: Acute - Plan * Acute kidney injury secondary to cardiorenal syndrome. Nephrology indicated that the patient is not a candidate for dialysis. * Ascites- Massive- he is s/p large volume paracentesis Received albumin. * Hepatic encephalopathy- improved some from last night- continue Lactulose, and Rifixamin * Anemia- will need to monitor his H&H- continue Protonix * Cirrhosis- decompensated-poor prognosis. * Hypokalemia: Replace potassium.
--- NOTE | 2020-09-25 16:19 | PRG ---
DATE OF SERVICE: 09/25/2020 SUBJECTIVE: Mr. Carnes is feeling pretty well. He is more awake. He has been tolerating his diet. He is not having significant abdominal pain, just the discomfort from distention. No other complaints. OBJECTIVE: VITAL SIGNS: Temperature 98.1, pulse 88, blood pressure 108/64, and oxygen saturation 100% on room air. GENERAL: No acute distress. More awake today. Pleasant and conversational. HEART: Regular rate and rhythm. LUNGS: Clear to auscultation bilaterally. ABDOMEN: Moderately distended with ascites. Reducible umbilical hernia. Bowel sounds present. Soft and nontender to palpation. EXTREMITIES: 1+ bilateral lower extremity edema. LABORATORY STUDIES: Sodium 128, potassium 2.5, BUN 110, creatinine down to 4.01, estimated GFR is 17, and glucose is 181. ASSESSMENT AND PLAN: 1. Acute on chronic renal failure, appears secondary to hepatorenal syndrome. Appreciate Nephrology assistance. I am inclined to keep giving albumin 100 mg daily. There has been some downtrend in creatinine. He is status post large volume paracentesis 2 days ago. 2. Ascites. He is status post 9.2 L paracentesis 2 days ago, unable to give diuretics due to hepatorenal syndrome. 3. Hepatic encephalopathy. This episode appears to have resolved. Ammonia remains elevated. He is now able to take the lactulose orally. Continue with t.i.d. dosing. Also, continue rifaximin 550 mg twice daily. 4. Alcoholic cirrhosis with ascites, decompensated. Overall, prognosis remains poor. Job ID: [id number]
[2020-09-25] MEDS ORDERED: Potassium Chloride 20 MEQ TAB PO SCH (17:00)
[2020-09-25] MEDS: Potassium Chloride 20 MEQ TAB PO SCH ×2 (17:00→21:17)
[2020-09-26 05:15] LABS: Anion Gap 20 mmol/L (10-20); BUN (Urea Nitrogen) 107 mg/dL (8.9-20.6); Calc. Creatinine Clearance 31 mL/min (70-130); Calcium 8.3 mg/dL (7.8-10.44); Carbon Dioxide 17 mmol/L (22-29); Chloride 95 mmol/L (98-107); Estimated GFR-MDRD 19; Glucose 129 mg/dL (70-105); Potassium 3.1 mmol/L (3.5-5.1); Sodium 129 mmol/L (136-145)
[2020-09-26 05:25] LABS: Band 10 % (5-11); Eosinophils 2 % (0-10); Hemoglobin 6.9 g/dL (14.0-18.0); Hypochromia SLIGHT = 6-15 cells (100X) (0-5/hpf); Lymphocytes 5 % (21-51); MDiff Complete? YES; Mean Corpuscular HGB CONC 35.4 g/dL (32.0-36.0); Mean Corpuscular Hemoglobin 31.9 pg (27.0-31.0); Mean Corpuscular Volume 90.1 fL (78.0-98.0); Monocytes 5 % (0-10); Neutrophil 78 % (42-75); Platelet Count 60 thou/uL (130-400); Platelet Morphology Comment Appears Decreased; RBC Distribution Width 13.9 % (11.5-14.5); Red Blood Cell (RBC) Count 2.15 mill/uL (4.70-6.10); White Blood Cell (WBC) Count 11.1 thou/uL (4.8-10.8)
[2020-09-26] MEDS: Pantoprazole 40 MG VIAL IVP SCH (08:12)
[2020-09-26] MEDS: Rifaximin 550 MG TAB PO SCH ×2 (08:12→20:33)
[2020-09-26] MEDS ORDERED: Potassium Chloride 20 MEQ TAB PO SCH (10:15)
--- NOTE | 2020-09-26 10:26 | PDOC.HOSPP ---
- Subjective Encounter Date: 09/26/20 Subjective: The patient's abdominal distention is significantly worse today. - Objective Vital Signs & Weight: Vital Signs (12 hours) Temp Pulse Resp BP Pulse Ox 09/26/20 08:05 98.2 F 107 H 17 113/53 L 100 09/26/20 03:00 98.4 F 105 H 18 121/55 L 93 L Weight Weight 174 lb 14.4 oz Most Recent Monitor Data Heart Rate from ECG 85 NIBP 113/66 NIBP BP-Mean 81 Respiration from ECG 21 SpO2 100 I&O: 09/25/20 09/26/20 09/27/20 07:59 06:59 06:59 Intake Total Output Total Balance Result Diagrams: 09/26/20 04:01 09/26/20 04:01 Hospitalist ROS - Medication Medications: Active Medications Generic Name Dose Route Start Last Admin Trade Name Freq PRN Reason Stop Dose Admin Ceftriaxone Sodium 1 gm/ 100 mls @ 200 mls/hr 09/22/20 14:00 09/25/20 13:29 Sodium Chloride IVPB 100 mls Q24HR RENARD Administration Sodium Bicarbonate 100 meq/ 1,100 mls @ 75 mls/hr 09/23/20 07:45 09/25/20 11:45 Dextrose/Water IV 1,100 mls .[id number] RENARD Administration Lactulose 20 gm 09/24/20 15:00 09/26/20 08:12 Lactulose 20 Gm/30 Ml Udcup PO 20 gm TID RENARD Administration Pantoprazole Sodium 40 mg 09/23/20 09:00 09/26/20 08:12 Pantoprazole 40 Mg Vial IVP 40 mg DAILY RENARD Administration Phenol 0 ml 09/22/20 19:49 09/22/20 21:36 Chloraseptic [place] 180 Ml Bottle PO 1 spr BIDPRN PRN Administration Sore Throat Rifaximin 550 mg 09/22/20 21:00 09/26/20 08:12 Rifaximin 550 Mg Tab PO 550 mg BID RENARD Administration Sodium Chloride 10 ml 09/24/20 21:00 09/26/20 08:12 Flush - Normal Saline 10 Ml Syringe IVF 10 ml Q12HR RENARD Administration - Exam General Appearance: awake alert Neck: supple, no JVD Respiratory: normal chest expansion, no tachypnea Gastrointestinal: soft, distended Extremities: no cyanosis Neurological: no weakness, no focal deficits Hosp A/P - Plan Hosp A/P (1) Acute kidney injury Code(s): N17.9 - ACUTE KIDNEY FAILURE, UNSPECIFIED Status: Acute (2) Ascites Code(s): R18.8 - OTHER ASCITES Status: Chronic (3) Alcohol abuse Code(s): F10.10 - ALCOHOL ABUSE, UNCOMPLICATED Status: Chronic (4) Chronic hepatitis C Code(s): B18.2 - CHRONIC VIRAL HEPATITIS C Status: Chronic Qualifiers: Hepatic coma status: without hepatic coma Qualified Code(s): B18.2 - Chronic viral hepatitis C (5) Cirrhosis Code(s): K74.60 - UNSPECIFIED CIRRHOSIS OF LIVER Status: Chronic Qualifiers: Hepatic cirrhosis type: alcoholic cirrhosis Ascites presence: with ascites Qualified Code(s): K70.31 - Alcoholic cirrhosis of liver with ascites (6) Anemia Code(s): D64.9 - ANEMIA, UNSPECIFIED Status: Acute - Plan * Acute kidney injury secondary to hepatorenal syndrome. Nephrology indicated that the patient is not a candidate for dialysis. The patient is receiving albumin * Ascites- Massive- he is s/p large volume paracentesis This seems to have reaccumulated again. We will attempt another paracentesis. * Hepatic encephalopathy- improved some from last night- continue Lactulose, and Rifixamin * Anemia-with macrocytosis due to liver disease. We will transfuse 1 unit of packed RBCs. * Cirrhosis- decompensated-poor prognosis. * Hypokalemia: Replace potassium.
--- NOTE | 2020-09-26 11:04 | PRG ---
DATE OF SERVICE: 09/26/2020 SUBJECTIVE: Mr. Carnes has remained mentally clear. He is having good bowel movements with the lactulose. He has been tolerating his diet. He has some abdominal discomfort from reaccumulation of ascites. OBJECTIVE: VITAL SIGNS: Temperature 98.2, pulse 107, blood pressure 113/53, 100% oxygen saturation on room air. GENERAL: He is in no acute distress. MENTAL: He is alert and oriented, pleasant, conversational, can answer questions appropriately without delay. HEART: Regular rate and rhythm. LUNGS: Clear to auscultation bilaterally. ABDOMEN: Distended with ascites, tense. Bowel sounds are present. Nontender to palpation. EXTREMITIES: No peripheral edema. LABORATORY STUDIES: Sodium 129, potassium 3.1, BUN 107, creatinine down to 3.66, estimated GFR is 19, glucose is 129. WBC 11.1, hemoglobin 6.9, platelets 60. INR 1.8. ASSESSMENT AND PLAN: 1. Acute on chronic kidney injury, appears secondary to hepatorenal syndrome. He has been receiving IV albumin 100 mg daily. Nephrology continues to follow. 2. Ascites. He is status post 9.2 L paracentesis 3 days ago, unable to give diuretics due to hepatorenal syndrome. Repeat ultrasound-guided therapeutic paracentesis has been ordered for later today. 3. Hepatic encephalopathy. This episode appears to have resolved. He is now able to take lactulose orally. I would continue with t.i.d. dosing, but this could be cautiously decreased to once or twice a daily for a goal of at least 2 to 3 loose bowel movements per day. Also, continue rifaximin 550 mg twice daily. 4. Alcoholic cirrhosis with ascites, decompensated. Overall prognosis remains poor. Job ID: [id number]
[2020-09-26] MEDS ORDERED: Lidocaine 1% PF 5 ML VIAL ONE (11:41)
--- NOTE | 2020-09-26 12:18 | ULT ---
Ultrasound-guided paracentesis: 09/26/2020 HISTORY: Symptomatic ascites FINDINGS: Informed consent obtained prior to the procedure. Preprocedural imaging demonstrated signif icant ascites throughout the abdomen and pelvis. Mid right abdomenprepped and draped in normal sterile fashion and anesthetized with 1% buffered lidoc marce. With direct sonographic guidance, 5 Swazi Yueh catheter is advanced into the ascites and removal of the stylet yielded yellowfluid. 6 L were removed. The patient tolerated the procedure well. No postprocedural complications. IMPRESSION: Successful ultrasound-guided paracentesis yielding 6 L of yellow fluid.
--- NOTE | 2020-09-26 14:21 | PDOC.NEPPN ---
- Subjective Encounter Date: 09/26/20 Subjective: Pt does not have new complaints. He is currently getting PRBC transfusion. - Objective Vital Signs & Weight: Vital Signs (12 hours) Temp Pulse Resp BP Pulse Ox 09/26/20 11:15 98.1 F 100 17 108/57 L 99 09/26/20 08:05 98.2 F 107 H 17 113/53 L 100 09/26/20 03:00 98.4 F 105 H 18 121/55 L 93 L Weight Weight 174 lb 14.4 oz Most Recent Monitor Data Heart Rate from ECG 85 NIBP 113/66 NIBP BP-Mean 81 Respiration from ECG 21 SpO2 100 I&O: 09/25/20 09/26/20 09/27/20 07:59 06:59 06:59 Intake Total Output Total Balance Result Diagrams: 09/26/20 04:01 09/26/20 04:01 Nephrology ROS - Review of Systems Other: Review of systems Gen.: No fever, no chills All the 14 systems reviewed except for the ones mentioned above are negative - Medication Medications: Active Medications Generic Name Dose Route Start Last Admin Trade Name Freq PRN Reason Stop Dose Admin Ceftriaxone Sodium 1 gm/ 100 mls @ 200 mls/hr 09/22/20 14:00 09/25/20 13:29 Sodium Chloride IVPB 100 mls Q24HR RENARD Administration Sodium Bicarbonate 100 meq/ 1,100 mls @ 75 mls/hr 09/23/20 07:45 09/25/20 11:45 Dextrose/Water IV 1,100 mls .[id number] RENARD Administration Lactulose 20 gm 09/24/20 15:00 09/26/20 08:12 Lactulose 20 Gm/30 Ml Udcup PO 20 gm TID RENARD Administration Pantoprazole Sodium 40 mg 09/23/20 09:00 09/26/20 08:12 Pantoprazole 40 Mg Vial IVP 40 mg DAILY RENARD Administration Phenol 0 ml 09/22/20 19:49 09/22/20 21:36 Chloraseptic [place] 180 Ml Bottle PO 1 spr BIDPRN PRN Administration Sore Throat Rifaximin 550 mg 09/22/20 21:00 09/26/20 08:12 Rifaximin 550 Mg Tab PO 550 mg BID RENARD Administration Sodium Chloride 10 ml 09/24/20 21:00 09/26/20 08:12 Flush - Normal Saline 10 Ml Syringe IVF 10 ml Q12HR RENARD Administration - Exam General - other findings: Not in pain/discomfort ENT: normocephalic atraumatic, moist mucosa Neck: supple, no lymphadenopathy Respiratory: no tachypnea Cardiovascular: RRR, no murmur, no gallops Gastrointestinal: soft Gastrointestinal - other findings: Distended with prominent superficial veins with everted umbilicus Extremities: no cyanosis Extremities - other findings: No edema or ulcers Neurological: CN's grossly intact Neurological - other findings: Patient is awake following commands Musculoskeletal: generalized weakness PSYCH: normal affect, normal behavior Nephrology Results - Labs Result Diagrams: 09/26/20 04:01 09/26/20 04:01 Lab results: WBC 11.1 thou/uL (4.8-10.8) H 09/26/20 04:01 Hgb 6.9 g/dL (14.0-18.0) L 09/26/20 04:01 Hct 19.4 % (42.0-52.0) L 09/26/20 04:01 MCV 90.1 fL (78.0-98.0) 09/26/20 04:01 Plt Count 60 thou/uL (130-400) L 09/26/20 04:01 Neutrophils % 81.5 % (42.0-75.0) H 09/24/20 08:11 Band Neuts % (Manual) 10 % (5-11) 09/26/20 04:01 Sodium 129 mmol/L (136-145) L 09/26/20 04:01 Potassium 3.1 mmol/L (3.5-5.1) L 09/26/20 04:01 Chloride 95 mmol/L (98-107) L 09/26/20 04:01 Carbon Dioxide 17 mmol/L (22-29) L 09/26/20 04:01 BUN 107 mg/dL (8.9-20.6) H 09/26/20 04:01 Creatinine 3.66 mg/dL (0.7-1.3) H 09/26/20 04:01 Glucose 129 mg/dL (70-105) H 09/26/20 04:01 Calcium 8.3 mg/dL (7.8-10.44) 09/26/20 04:01 Total Bilirubin 2.0 mg/dL (0.2-1.2) H 09/22/20 09:56 AST 15 U/L (5-34) 09/22/20 09:56 ALT 12 U/L (8-55) 09/22/20 09:56 Alkaline Phosphatase 88 U/L (40-110) 09/22/20 09:56 Ammonia 131 umol/L (18-72) H 09/24/20 08:11 Serum Total Protein 6.6 g/dL (6.0-8.3) 09/22/20 09:56 Albumin 3.0 g/dL (3.5-5.0) L 09/22/20 09:56 Urine Ketones Negative mg/dL (Negative) 09/22/20 22:35 Urine Blood Negative (Negative) 09/22/20 22:35 Urine Nitrite Negative (Negative) 09/22/20 22:35 Ur Leukocyte Esterase Negative Kelly/uL (Negative) 09/22/20 22:35 Urine RBC 0-3 HPF (0-3) 09/22/20 22:35 Urine WBC 0-3 HPF (0-3) 09/22/20 22:35 Ur Squamous Epith Cells None Seen HPF (0-3) 09/22/20 22:35 Urine Bacteria None Seen HPF (None Seen) 09/22/20 22:35 Sodium 129 mmol/L (136-145) L 09/26/20 04:01 Potassium 3.1 mmol/L (3.5-5.1) L 09/26/20 04:01 Chloride 95 mmol/L (98-107) L 09/26/20 04:01 Carbon Dioxide 17 mmol/L (22-29) L 09/26/20 04:01 Anion Gap 20 mmol/L (10-20) 09/26/20 04:01 BUN 107 mg/dL (8.9-20.6) H 09/26/20 04:01 Creatinine 3.66 mg/dL (0.7-1.3) H 09/26/20 04:01 Glucose 129 mg/dL (70-105) H 09/26/20 04:01 Calcium 8.3 mg/dL (7.8-10.44) 09/26/20 04:01 Magnesium 2.3 mg/dL (1.6-2.6) 09/24/20 13:43 Albumin 3.0 g/dL (3.5-5.0) L 09/22/20 09:56 Nephrology AP PN - Plan Assessment and plan DANNY on CKD stage IV Hypokalemia Anemia Hyponatremia Metabolic acidosis Hypertension History of cirrhosis Adequate urine out put-750 ml in the last 24 hrs. Agree with PRBC transfusion. Will change to oral bicarbonate replacement. Replace and monitor potassium levels. Palliative consult pending in am. Will evaluate daily for WEDGER AND GLUER. overall prognosis is poor. Discussed with RN and
[2020-09-26] MEDS: cefTRIAXone\\ROCEPHIN 1 GM in Sodium Chloride 0.9% 100 ML IVPB SCH (14:25)
[2020-09-26] MEDS: Sodium Bicarbonate 100 MEQ in Dextrose 5% in Water 1,000 ML IV SCH (15:20)
[2020-09-27 04:35] LABS: #Eosinphils 0.4 thou/uL (0.0-0.7); #Lymphocytes 0.8 thou/uL (1.20-3.40); #Monocytes 1.7 thou/uL (0.11-0.59); #Neutrophils 12.8 thou/uL (1.40-6.50); %Basophils 0.3 % (0.0-1.0); %Eosinophils 2.4 % (0.0-10.0); %Lymphocytes 4.9 % (21.0-51.0); %Monocytes 10.7 % (0.0-10.0); %Neutrophils 81.8 % (42.0-75.0); Hemoglobin 8.3 g/dL (14.0-18.0); Mean Corpuscular HGB CONC 35.5 g/dL (32.0-36.0); Mean Corpuscular Hemoglobin 31.9 pg (27.0-31.0); Mean Corpuscular Volume 89.7 fL (78.0-98.0); Platelet Count 66 thou/uL (130-400); RBC Distribution Width 14.3 % (11.5-14.5); Red Blood Cell (RBC) Count 2.59 mill/uL (4.70-6.10); White Blood Cell (WBC) Count 15.6 thou/uL (4.8-10.8)
[2020-09-27 04:54] LABS: Anion Gap 19 mmol/L (10-20); BUN (Urea Nitrogen) 103 mg/dL (8.9-20.6); Calc. Creatinine Clearance 35 mL/min (70-130); Calcium 8.1 mg/dL (7.8-10.44); Carbon Dioxide 16 mmol/L (22-29); Chloride 95 mmol/L (98-107); Estimated GFR-MDRD 24; Glucose 177 mg/dL (70-105); Sodium 127 mmol/L (136-145)
[2020-09-27 04:58] LABS: Potassium 2.9 mmol/L (3.5-5.1)
[2020-09-27] MEDS ORDERED: Potassium Chloride 20 MEQ TAB PO SCH (05:15)
[2020-09-27] MEDS: Rifaximin 550 MG TAB PO SCH ×2 (09:17→20:45)
[2020-09-27] MEDS: Pantoprazole 40 MG VIAL IVP SCH (09:17)
--- NOTE | 2020-09-27 10:17 | PRG ---
DATE OF SERVICE: 09/27/2020 SUBJECTIVE: Mr. Carnes is feeling pretty good this morning. He had another 6 L paracentesis yesterday. He is tolerating his diet. No confusion. No nausea. He had about 6 loose bowel movements yesterday. OBJECTIVE: VITAL SIGNS: Temperature 98.4, pulse 100, blood pressure 113/55, 100% oxygen saturation on room air. GENERAL: No acute distress. Lying in bed comfortably. HEART: Regular rate and rhythm. LUNGS: Clear to auscultation bilaterally. ABDOMEN: Distended with ascites much less tense than yesterday. Bowel sounds are present. Soft and nontender to palpation. EXTREMITIES: 1+ bilateral lower extremity edema. LABORATORY STUDIES: WBC 15.6, hemoglobin 8.3, platelets 66. Sodium 127, potassium 2.9, BUN down to 103, creatinine down to 2.96. Estimated GFR is 24 today. Glucose 177. ASSESSMENT AND PLAN: 1. [id number] renal failure, appears to be secondary to hepatorenal syndrome. The patient received several days of IV albumin. Nephrology continues to follow. Urine output increasing and GFR slowly improving over the past several days. 2. Ascites. He is status post 9.2 L paracentesis 4 days ago, then another 6 L paracentesis yesterday. Unable to give diuretics due to hepatorenal syndrome. 3. Hepatic encephalopathy. This episode has resolved. He is taking lactulose orally. He needs to continue on at least once per day, titrated up for at least 2 to 3 loose bowel movements per day. Also, continue rifaximin 550 mg twice daily. 4. Alcoholic cirrhosis with ascites, decompensated. Overall prognosis remains poor. Job ID: [id number]
[2020-09-27] MEDS: Potassium Chloride 20 MEQ TAB PO SCH ×2 (12:58→17:01)
--- NOTE | 2020-09-27 14:08 | PDOC.HOSPP ---
- Subjective Encounter Date: 09/27/20 Subjective: The patient complained about laying in the bed all the time and requested to have physical therapy. - Objective Vital Signs & Weight: Vital Signs (12 hours) Temp Pulse Resp BP Pulse Ox 09/27/20 12:09 98.5 F 99 23 H 114/59 L 100 09/27/20 07:20 98.4 F 100 19 113/55 L 100 09/27/20 04:00 98.8 F 105 H 18 112/60 94 L Weight Weight 159 lb 8 oz Most Recent Monitor Data Heart Rate from ECG 85 NIBP 113/66 NIBP BP-Mean 81 Respiration from ECG 21 SpO2 100 I&O: 09/26/20 09/27/20 09/28/20 06:59 06:59 06:59 Intake Total 2050 Output Total 1150 Balance 900 Result Diagrams: 09/27/20 03:51 09/27/20 03:51 Hospitalist ROS - Medication Medications: Active Medications Generic Name Dose Route Start Last Admin Trade Name Freq PRN Reason Stop Dose Admin Ceftriaxone Sodium 1 gm/ 100 mls @ 200 mls/hr 09/22/20 14:00 09/26/20 14:25 Sodium Chloride IVPB 100 mls Q24HR RENARD Administration Lactulose 20 gm 09/24/20 15:00 09/27/20 09:17 Lactulose 20 Gm/30 Ml Udcup PO 20 gm TID RENARD Administration Pantoprazole Sodium 40 mg 09/23/20 09:00 09/27/20 09:17 Pantoprazole 40 Mg Vial IVP 40 mg DAILY RENARD Administration Phenol 0 ml 09/22/20 19:49 09/22/20 21:36 Chloraseptic [place] 180 Ml Bottle PO 1 spr BIDPRN PRN Administration Sore Throat Potassium Chloride 40 meq 09/27/20 13:00 09/27/20 12:58 Potassium Chloride 20 Meq Tab PO 09/27/20 17:01 40 meq Q4HR RENARD Administration Rifaximin 550 mg 09/22/20 21:00 09/27/20 09:17 Rifaximin 550 Mg Tab PO 550 mg BID RENARD Administration Sodium Chloride 10 ml 09/24/20 21:00 09/27/20 09:18 Flush - Normal Saline 10 Ml Syringe IVF 10 ml Q12HR RENARD Administration - Exam ENT: normocephalic atraumatic, no oropharyngeal lesions Neck: supple, no JVD Heart: RRR Gastrointestinal: soft, non-tender, non-distended, normal bowel sounds Neurological: no focal deficits, no new deficit Hosp A/P - Plan Hosp A/P (1) Acute kidney injury Code(s): N17.9 - ACUTE KIDNEY FAILURE, UNSPECIFIED Status: Acute (2) Ascites Code(s): R18.8 - OTHER ASCITES Status: Chronic (3) Alcohol abuse Code(s): F10.10 - ALCOHOL ABUSE, UNCOMPLICATED Status: Chronic (4) Chronic hepatitis C Code(s): B18.2 - CHRONIC VIRAL HEPATITIS C Status: Chronic Qualifiers: Hepatic coma status: without hepatic coma Qualified Code(s): B18.2 - Chronic viral hepatitis C (5) Cirrhosis Code(s): K74.60 - UNSPECIFIED CIRRHOSIS OF LIVER Status: Chronic Qualifiers: Hepatic cirrhosis type: alcoholic cirrhosis Ascites presence: with ascites Qualified Code(s): K70.31 - Alcoholic cirrhosis of liver with ascites (6) Anemia Code(s): D64.9 - ANEMIA, UNSPECIFIED Status: Acute - Plan * Acute kidney injury secondary to hepatorenal syndrome. Creatinine level is improving. The patient is stable Albumin and bicarbonate. * Ascites- Massive- he is s/p large volume paracentesis X2. * Hepatic encephalopathy- improved some from last night- continue Lactulose, and Rifixamin * Anemia-with macrocytosis due to liver disease. H&H improved with transfusion. * Cirrhosis- decompensated-poor prognosis. * Hypokalemia: Replace potassium.
[2020-09-27] MEDS: cefTRIAXone\\ROCEPHIN 1 GM in Sodium Chloride 0.9% 100 ML IVPB SCH (15:34)
[2020-09-27] MEDS: Sodium Bicarbonate Tab 325 MG TAB PO SCH (20:45)
[2020-09-28 04:42] LABS: Band 2 % (5-11); Hemoglobin 8.8 g/dL (14.0-18.0); Hypochromia SLIGHT = 6-15 cells (100X) (0-5/hpf); Lymphocytes 2 % (21-51); MDiff Complete? YES; Mean Corpuscular HGB CONC 34.9 g/dL (32.0-36.0); Mean Corpuscular Hemoglobin 31.3 pg (27.0-31.0); Mean Corpuscular Volume 89.8 fL (78.0-98.0); Mean Platelet Volume 7.6 fL (7.4-10.4); Monocytes 12 % (0-10); Neutrophil 84 % (42-75); Platelet Count 86 thou/uL (130-400); Platelet Morphology Comment Appears Decreased; RBC Distribution Width 14.3 % (11.5-14.5); Red Blood Cell (RBC) Count 2.81 mill/uL (4.70-6.10); White Blood Cell (WBC) Count 20.6 thou/uL (4.8-10.8)
[2020-09-28 04:50] LABS: Anion Gap 17 mmol/L (10-20); BUN (Urea Nitrogen) 101 mg/dL (8.9-20.6); Calc. Creatinine Clearance 40 mL/min (70-130); Calcium 8.3 mg/dL (7.8-10.44); Carbon Dioxide 15 mmol/L (22-29); Chloride 96 mmol/L (98-107); Estimated GFR-MDRD 28; Glucose 119 mg/dL (70-105); Potassium 3.4 mmol/L (3.5-5.1); Sodium 125 mmol/L (136-145)
[2020-09-28] MEDS: Sodium Bicarbonate Tab 325 MG TAB PO SCH ×3 (05:42→21:13)
[2020-09-28] MEDS: Rifaximin 550 MG TAB PO SCH ×2 (09:11→21:13)
[2020-09-28] MEDS: Pantoprazole 40 MG VIAL IVP SCH (09:11)
--- NOTE | 2020-09-28 11:44 | PRG ---
DATE OF SERVICE: 09/27/2020 SUBJECTIVE: This is a 35-year-old gentleman, being seen for acute kidney injury. The patient denies any nausea, vomiting, or chest pain. OBJECTIVE: GENERAL: The patient is awake and alert. VITAL SIGNS: Pulse 99, breathing 16, and blood pressure 119/58. HEENT: Head normocephalic and atraumatic. Eyes intact, no ulcers. Nose intact, no ulcers. Ears intact, no ulcers. NECK: Supple. No JVD. CHEST: Symmetrical and clear. CARDIOVASCULAR: Shows S1 and S2, no rub, no murmur. GASTROINTESTINAL: Abdomen is soft, bowel sounds positive. EXTREMITIES: Show no edema or ulcers. SKIN: Shows no rash or petechiae. MUSCULOSKELETAL: Shows no joint swelling or stiffness. GENITOURINARY: Shows no Damon or CVA tenderness. NEUROLOGIC: Motor intact. Cranial nerves intact. LABORATORY DATA: Hemoglobin 8.8. Creatinine is 2.9. ASSESSMENT AND PLAN: 1. Acute kidney injury. 2. Hypertension, stable. 3. Anemia, stable. 4. Medications based on GFR appropriate. No indication for dialysis. Job ID: [id number]
--- NOTE | 2020-09-28 11:47 | PDOC.PALCO ---
Palliative Care Consult - Consult Details Requesting Physician: Dr Conner / Hospitalist Reason for Consult: goals of care, assistance with communication prognosis/disease - Pertinent HPI 35 year old male who is familiar to Palliative Care. Mr Carnes has a history of alcoholic liver cirrhosis with ascites, chronic kidney disease, esophageal varices, hepatic encephalopathy and hepatitis C. He was send to the emergency room secondary to worsening renal function and lethargy. He was admitted for acute metabolic encephalopathy, susbected sepsis, uremia, amonia of 270, anemia, thrombycytopenia, ascites, and hepatorenal syndrome. - Pertinent PMH Decompensated liver cirrhosis, CKD - Social History Smoking Status: Former smoker Smoking: quit less than 1 year Alcohol Use: other (has not consumed alsohol in 6 months as per patient) Living Situation: - Medications MAR Reviewed: Yes - Allergies Allergies/Adverse Reactions: Allergies Allergy/AdvReac Type Severity Reaction Status Date / Time Blackberries Allergy Mild Hives Uncoded 09/22/20 16:26 - Subjective Awake, oriented. Weakness but hopeful to participate in physical therapy. - ROS Constitutional: alert, weakness ENT: other (Negative for throat irritation, congestion) Respiratory: other (negative for cough, shortness of breath) Cardiology: other (negative for chest pain, discomfort, palpitations) Gastrointestinal: bloating, diarrhea, other (ascities) Skin: other (Denies rash) Psychological: depression - Objective Vital Signs: Vital Signs - Most Recent Temp Pulse Resp BP Pulse Ox 98.9 F 99 22 H 119/58 L 100 09/28/20 09:03 09/28/20 09:03 09/28/20 09:03 09/28/20 09:03 09/28/20 09:03 Palliative Performance Scale: 60 - Physical Exam Constitutional: NAD, cachectic, emaciated, ill appearing HEENT: moist MMs, scleral icterus Respiratory: no rhonchi, no wheezing, unlabored breathing Cardiovascular: no significant murmur, RRR Gastrointestinal: soft, positive bowel sounds Deviation from normal: Distended Musculoskeletal: no clubbing, no edema, pulses present, muscle wasting Neurology: moves all 4 limbs, no focal deficits Skin: cap refill <2 seconds, no lesions, no rash Psychiatric: A&O x 3 - Problem List (1) Palliative care encounter Code(s): Z51.5 - ENCOUNTER FOR PALLIATIVE CARE Current Visit: Yes Status: Acute (2) Hepatorenal syndrome Code(s): K76.7 - HEPATORENAL SYNDROME Current Visit: Yes Status: Acute (3) Chronic hepatitis C Code(s): B18.2 - CHRONIC VIRAL HEPATITIS C Current Visit: No Status: Chronic Qualifiers: Hepatic coma status: without hepatic coma Qualified Code(s): B18.2 - Chronic viral hepatitis C (4) Cirrhosis Code(s): K74.60 - UNSPECIFIED CIRRHOSIS OF LIVER Current Visit: No Status: Chronic Qualifiers: Hepatic cirrhosis type: alcoholic cirrhosis Ascites presence: with ascites Qualified Code(s): K70.31 - Alcoholic cirrhosis of liver with ascites - Plan/Recommendations Plan: Most important to patient is his family, and three children. Daughter 16, Daughter 15, and son 13. In teach back he appears to struggle with limited options to manage recurrent ascites. Palliative Care has inquired with [facility] hospice to see if coordination for paracentesis for symptom management and acquisition of medication can be done to manage symptoms related to disease. Also discussed continuing to manage disease processes and coordinate paracentesis with Dr Millard as Mr Carnes has stated was done in the past. Patient confirms OOHDNAR, but desires for now to remain with full resuscitation in the hospital. appears to have understanding of poor prognosis. Palliative care will continue to assist with disease education, revisiting Goal of Care. [55] minutes spent on this encounter with >50% of the time in counseling and coordination of care. Thank you for this very appropriate consult.
--- NOTE | 2020-09-28 12:12 | PRG ---
DATE OF SERVICE: 09/28/2020 SUBJECTIVE: Mr. Carnes is awake and alert today. He had 10+ bowel movements yesterday and has had five bowel movements so far today. He has no abdominal pain. OBJECTIVE: VITAL SIGNS: Temperature 98.9, pulse 99, blood pressure 119/58. GENERAL: He is in no acute distress. Alert and oriented x3. LUNGS: Clear to auscultation bilaterally. HEART: Regular rate and rhythm without murmur. ABDOMEN: Distended with ascites but soft. Bowel sounds are present. EXTREMITIES: No lower extremity edema. LABORATORY DATA: White blood cell count 20.6, hemoglobin 8.8, platelets 86. Sodium 125, creatinine 2.61. IMPRESSION: 1. Ascites. He underwent paracentesis on 09/26/2020 and also back on 09/23/2020. His white blood cell count has trended up over the last couple of days, but he has been asymptomatic otherwise related to that. The lab still has the fluid from the paracentesis from September 26 and I will send that for cell count and culture. 2. End-stage liver disease. His prognosis is poor with the acute renal failure. However, at least his creatinine is improved over the last few days. He has previously declined liver transplant referral. However, he is now willing. I will work on outpatient referral process regarding that. 3. End-stage liver disease secondary to alcohol. 4. History of esophageal varices. RECOMMENDATIONS: 1. Send fluid studies from the ascitic fluid. 2. Follow the trend of his kidney tests. 3. I will initiate outpatient referral to a transplant center. Job ID: [id number]
--- NOTE | 2020-09-28 13:48 | PRG ---
DATE OF SERVICE: 09/28/2020 SUBJECTIVE: A 35-year-old gentleman, being seen for acute kidney injury. The patient denies any nausea, vomiting, or chest pain. PHYSICAL EXAMINATION: GENERAL: The patient is awake and alert. VITAL SIGNS: Afebrile, pulse 99, breathing at 16, blood pressure 117/73. HEENT: Head normocephalic and atraumatic. Eyes intact, no ulcers. Nose intact, no ulcers. Ears intact, no ulcers. NECK: Supple. No JVD. CHEST: Symmetrical and clear. CARDIOVASCULAR: Shows S1 and S2, no rub, no murmur. GASTROINTESTINAL: Abdomen is soft, bowel sounds positive. EXTREMITIES: Show no edema or ulcers. SKIN: Shows no rash or petechiae. MUSCULOSKELETAL: Shows no joint swelling or stiffness. GENITOURINARY: Shows no Damon or CVA tenderness. NEUROLOGIC: Motor intact. Cranial nerves intact. LABORATORY DATA: Reviewed. ASSESSMENT AND PLAN: 1. Stage 4 chronic kidney disease, stable. 2. Acute kidney injury, improved. 3. Hypokalemia, improved. 4. Hyponatremia, recommend fluid restriction. No indication for dialysis at this time. Job ID: [id number]
[2020-09-28 13:56] LABS: RBC Count-Automated (BF) 3509 /cu.mm; WBC/Nucleated-Auto (BF) 134 uL
[2020-09-28 14:12] LABS: BF Color Yellow; Body Fluid Source Ascites Body Fluid; Clarity Hazy (Clear); Tube # EDTA
[2020-09-28 14:30] LABS: BF Segmented Neutrophils 38 %; Cell Count Non Hematic 27 %; Eosinophils 1 %; Lymphocytes 32 %
--- NOTE | 2020-09-28 14:35 | PDOC.HOSPP ---
- Subjective Encounter Date: 09/28/20 Subjective: The patient's abdominal distention has worsened again over the past 2 days. - Objective Vital Signs & Weight: Vital Signs (12 hours) Temp Pulse Pulse Pulse Resp BP BP 09/28/20 11:52 98.7 F 107 H 20 09/28/20 11:38 107 H 106 H 117/73 116/64 09/28/20 09:03 98.9 F 99 22 H 09/28/20 08:23 09/28/20 04:00 98.3 F 117 H 18 BP Pulse Ox 09/28/20 11:52 117/73 100 09/28/20 11:38 09/28/20 09:03 119/58 L 100 09/28/20 08:23 100 09/28/20 04:00 106/56 L 99 Weight Weight 157 lb 11.2 oz Most Recent Monitor Data Heart Rate from ECG 85 NIBP 113/66 NIBP BP-Mean 81 Respiration from ECG 21 SpO2 100 I&O: 09/27/20 09/28/20 09/29/20 06:59 06:59 06:59 Intake Total 2050 2200 Output Total 1150 900 Balance 900 1300 Result Diagrams: 09/28/20 03:55 09/28/20 03:55 Hospitalist ROS - Medication Medications: Active Medications Generic Name Dose Route Start Last Admin Trade Name Freq PRN Reason Stop Dose Admin Ceftriaxone Sodium 1 gm/ 100 mls @ 200 mls/hr 09/22/20 14:00 09/27/20 15:34 Sodium Chloride IVPB 100 mls Q24HR RENARD Administration Lactulose 20 gm 09/24/20 15:00 09/28/20 09:10 Lactulose 20 Gm/30 Ml Udcup PO 20 gm TID RENARD Administration Pantoprazole Sodium 40 mg 09/23/20 09:00 09/28/20 09:11 Pantoprazole 40 Mg Vial IVP 40 mg DAILY RENARD Administration Phenol 0 ml 09/22/20 19:49 09/22/20 21:36 Chloraseptic [place] 180 Ml Bottle PO 1 spr BIDPRN PRN Administration Sore Throat Rifaximin 550 mg 09/22/20 21:00 09/28/20 09:11 Rifaximin 550 Mg Tab PO 550 mg BID RENARD Administration Sodium Bicarbonate 1,300 mg 09/27/20 22:00 09/28/20 05:42 Sodium Bicarbonate Tab 325 Mg Tab PO 09/29/20 14:01 1,300 mg Q8HR RENARD Administration Sodium Chloride 10 ml 09/24/20 21:00 09/28/20 09:11 Flush - Normal Saline 10 Ml Syringe IVF 10 ml Q12HR RENARD Administration - Exam General Appearance: awake alert Neck: supple, no JVD Heart: RRR Respiratory: normal chest expansion, no tachypnea Gastrointestinal: soft, distended Neurological: cranial nerve grossly intact, no focal deficits Hosp A/P - Plan Hosp A/P (1) Acute kidney injury Code(s): N17.9 - ACUTE KIDNEY FAILURE, UNSPECIFIED Status: Acute (2) Ascites Code(s): R18.8 - OTHER ASCITES Status: Chronic (3) Alcohol abuse Code(s): F10.10 - ALCOHOL ABUSE, UNCOMPLICATED Status: Chronic (4) Chronic hepatitis C Code(s): B18.2 - CHRONIC VIRAL HEPATITIS C Status: Chronic Qualifiers: Hepatic coma status: without hepatic coma Qualified Code(s): B18.2 - Chronic viral hepatitis C (5) Cirrhosis Code(s): K74.60 - UNSPECIFIED CIRRHOSIS OF LIVER Status: Chronic Qualifiers: Hepatic cirrhosis type: alcoholic cirrhosis Ascites presence: with ascites Qualified Code(s): K70.31 - Alcoholic cirrhosis of liver with ascites (6) Anemia Code(s): D64.9 - ANEMIA, UNSPECIFIED Status: Acute - Plan * Acute kidney injury secondary to hepatorenal syndrome. Creatinine level is improving. * Ascites- Massive- he is s/p large volume paracentesis X2. It seems like the ascitic fluid has reaccumulated again. Leukocytosis has also been worsening for the past 2 days. Recent paracentesis fluid was sent for cell count and cultures. The patient's abdomen is nontender and he is not febrile. * Hepatic encephalopathy- improved some from last night- continue Lactulose, and Rifixamin * Anemia-with macrocytosis due to liver disease. H&H improved with transfusion. * Cirrhosis- decompensated-poor prognosis. * Hypokalemia: Replace potassium.
[2020-09-28] MEDS: cefTRIAXone\\ROCEPHIN 1 GM in Sodium Chloride 0.9% 100 ML IVPB SCH (15:28)
[2020-09-28] MEDS: FLU VACC QS2020-21(6MOS UP)/PF 60 MCG/0.5 ML SYRINGE IM ONE (15:29)
[2020-09-29 04:22] LABS: Hemoglobin 9.5 g/dL (14.0-18.0); Mean Corpuscular HGB CONC 35.7 g/dL (32.0-36.0); Mean Corpuscular Hemoglobin 32.7 pg (27.0-31.0); Mean Corpuscular Volume 91.5 fL (78.0-98.0); Mean Platelet Volume 8.7 fL (7.4-10.4); Platelet Count 16 thou/uL (130-400); RBC Distribution Width 14.1 % (11.5-14.5); Red Blood Cell (RBC) Count 2.92 mill/uL (4.70-6.10); White Blood Cell (WBC) Count 20.5 thou/uL (4.8-10.8)
[2020-09-29 04:23] LABS: Anion Gap 18 mmol/L (10-20); BUN (Urea Nitrogen) 102 mg/dL (8.9-20.6); Band 12 % (5-11); Calc. Creatinine Clearance 36 mL/min (70-130); Calcium 8.2 mg/dL (7.8-10.44); Carbon Dioxide 15 mmol/L (22-29); Chloride 92 mmol/L (98-107); Eosinophils 3 % (0-10); Estimated GFR-MDRD 25; Glucose 133 mg/dL (70-105); Lymphocytes 2 % (21-51); MDiff Complete? YES; Metamyelocyte 1 % (0-0); Monocytes 8 % (0-10); Neutrophil 74 % (42-75); Platelet Morphology Comment Appears Decreased; Potassium 3.3 mmol/L (3.5-5.1); Sodium 122 mmol/L (136-145)
[2020-09-29] MEDS: Sodium Bicarbonate Tab 325 MG TAB PO SCH ×2 (05:50→14:55)
[2020-09-29 06:59] LABS: Platelet Count 86 thou/uL (130-400)
[2020-09-29] MEDS: Pantoprazole 40 MG VIAL IVP SCH (07:58)
[2020-09-29] MEDS: Rifaximin 550 MG TAB PO SCH ×2 (07:58→20:37)
--- NOTE | 2020-09-29 12:13 | PRG ---
DATE OF SERVICE: 09/29/2020 HISTORY OF PRESENT ILLNESS: 35-year-old gentleman, being seen for acute kidney injury. The patient denies nausea, vomiting, or chest pain. PHYSICAL EXAMINATION: GENERAL: The patient is awake and alert. VITAL SIGNS: Afebrile, pulse 87, breathing at 16, blood pressure 150/62. HEENT: Head normocephalic and atraumatic. Eyes intact, no ulcers. Nose intact, no ulcers. Ears intact, no ulcers. NECK: Supple. No JVD. CHEST: Symmetrical and clear. CARDIOVASCULAR: Shows S1 and S2, no rub, no murmur. GASTROINTESTINAL: Abdomen is soft, bowel sounds positive. EXTREMITIES: Show no edema or ulcers. SKIN: Shows no rash or petechiae. MUSCULOSKELETAL: Shows no joint swelling or stiffness. GENITOURINARY: Shows no Damon or CVA tenderness. NEUROLOGIC: Motor intact. Cranial nerves intact. LABORATORY DATA: Reviewed. ASSESSMENT AND PLAN: 1. Stage 4 chronic kidney disease with acute kidney injury due to hepatorenal syndrome, progressive. 2. Metabolic acidosis. Continue sodium bicarbonate, hyponatremia due to renal failure. We would recommend 800 mL fluid restriction. 3. Hypokalemia, improved. 4. Medication based on GFR appropriate. I would recommend Palliative Care consult, follow up, and the patient should be on hospice preferably. Job ID: [id number]
--- NOTE | 2020-09-29 14:46 | PRG ---
DATE OF SERVICE: 09/29/2020 REASON FOR CONSULTATION: Cirrhosis, complicated by hepatic encephalopathy and more recently possible acute kidney injury, now responding to conservative management. SUBJECTIVE: The patient did not have any events or problems overnight. Today, he states that his mind is fairly clear and has not had any further episodes of disorientation. He has been able to have multiple bowel movements within the last 24 hours, having approximately 10 to 14 liquid bowel movements during that time period (most occurring last night). He has been able to tolerate a renal diet without difficulty thus far and is currently being followed by the Nephrology Service given his acute kidney injury. Otherwise, he denies any nausea, vomiting, fevers, chills, hematemesis, melena, hematochezia. He also adds that his belly remains somewhat soft even after the paracentesis performed the other day with no abdominal pain over the last 24 hours as well. OBJECTIVE: VITAL SIGNS: Temperature 97.6, pulse 87, blood pressure 115/62, respiratory rate 18, saturating 99% on room air. GENERAL: The patient was lying in bed, in no acute distress. Alert and oriented x4. CARDIOVASCULAR: Regular rate and rhythm. RESPIRATORY: Clear to auscultation bilaterally. ABDOMEN: Normoactive bowel sounds. Soft, nontender to palpation. Severe abdominal distention with shifting dullness and an umbilical hernia that was easily reducible. EXTREMITIES: No cyanosis, clubbing, or edema. LABORATORY DATA: CBC with a white blood cell count of 20.5, hemoglobin 9.5, hematocrit 26.7, platelets 16. Chemistry with a sodium of 122, potassium 3.3, chloride 92, CO2 of 15, BUN 102, creatinine 2.85, glucose 133. IMAGING DATA: No current GI imaging is available for review. ASSESSMENT AND PLAN: The patient is a 35-year-old male with past medical history of alcoholic cirrhosis complicated by bleeding esophageal varices, status post band ligation in 2007 and 2013, hepatic encephalopathy and abdominal ascites, presenting with worsening hepatic encephalopathy and acute kidney injury, initially felt to be due to hepatorenal syndrome. Alcoholic cirrhosis: The patient is presenting with a longstanding history of alcohol consumption and resultant cirrhosis complicated by esophageal varices, hepatic encephalopathy, and abdominal ascites as well as lower extremity edema (currently not present). Currently, he is presenting with decompensation of his end-stage liver disease with inability to accurately calculate a MELD score or Child-Orozco classification, although presumably both of these are very high. He was discharged to hospice care in April of this year, but unfortunately was discharged from the program secondary to inability to obtain frequent paracenteses as part of comfort care measures related to that program. As part of his prophylaxis for esophageal varices, he had been placed on nadolol 20 mg daily in the past, but this has been held during this admission given his worsening renal function. Recommendations: 1. Would continue to trend the patient's LFTs and INR daily to determine worsening hepatic function. 2. Would continue to monitor the patient clinically for signs of worsening hepatic encephalopathy as sometimes it can be a harbinger of impending liver failure. 3. Would continue to hold the nadolol for now. Refractory ascites: The patient is presenting with a longstanding history of ascites that has been present since at least April of 2020. The patient had been placed on spironolactone and furosemide, but despite this administration had been reaccumulating quickly to the point where the patient needed paracenteses every 2 weeks. However, prior to admission, the patient did have worsening of his hepatic encephalopathy as well as acute kidney injury evidenced by an elevated BUN and creatinine, which was concerning for prerenal azotemia secondary to his diuretic administration. With administration of albumin and IV fluids, the patient has had slowly improving renal function during the course of this admission making the likelihood of hepatorenal syndrome much less so. However, over the course of this admission, he has required paracentesis on 2 different occasions with withdrawal of many L of ascitic fluid with most recent one obtaining approximately 6 L on September 26. At this time given his worsening renal function, diuretic administration is ill advised at this time. Recommendations: 1. Would continue to monitor the patient with frequent paracenteses until the patient's renal function improves. 2. Would consider placing the patient back on diuretic management once his renal function improves, but would defer to Nephrology Service in terms of timing of restarting of those medications. Acute kidney injury: The patient initially presented with acute kidney injury with a significantly elevated BUN and creatinine. Initially, this was felt to be due to hepatorenal syndrome, but with administration of albumin and discontinuation of his diuretics, he has been having slowly improving renal function during this hospitalization, raising the possibility of prerenal azotemia secondary to diuretic administration. At this time, his renal function was improving until yesterday and had a slight increase in both BUN and creatinine, raising again concern for prerenal azotemia versus hepatorenal syndrome. With the patient being placed on fluid restriction secondary to his profound hyponatremia, I would restart the patient on albumin for expansion of his intravascular space. Recommendations: 1. We will place the patient back on albumin for the next 24 hours and monitoring of his renal function at that time. 2. Would defer to the Renal Service for further management of his acute kidney injury and hyponatremia. Hepatic encephalopathy: The patient initially presented with a profound hepatic encephalopathy with a serum ammonia level of approximately 270. During the course of this admission, he has responded well to both lactulose administration and rifaximin with complete clearing of sensorium on physical exam today. However, at this time, he is having a significant number of liquid bowel movements, which is likely indicative of obtaining too much lactulose over 24-hour period. The goal would be to have approximately 3 to 4 semi-solid liquid bowel movements per day for adequate expulsion of ammonia from the system. Recommendations: 1. Would decrease the lactulose to 20 g b.i.d. in addition to continuation of rifaximin 550 mg b.i.d. We will continue to follow. Please call with any questions. Job ID: [id number]
[2020-09-29] MEDS: cefTRIAXone\\ROCEPHIN 1 GM in Sodium Chloride 0.9% 100 ML IVPB SCH (14:55)
[2020-09-29] MEDS: Albumin 25% 25 GM/100 ML BOT IVPB SCH ×2 (14:55→20:37)
--- NOTE | 2020-09-29 15:29 | PDOC.HOSPP ---
- Subjective Encounter Date: 09/29/20 Subjective: The patient is alert and oriented today. He is complaining of abdominal pain. - Objective Vital Signs & Weight: Vital Signs (12 hours) Temp Pulse Resp BP Pulse Ox 09/29/20 15:15 97.5 F L 87 18 116/70 100 09/29/20 11:30 97.6 F 87 18 115/62 99 09/29/20 07:00 98.2 F 90 18 124/64 100 Weight Weight 165 lb Most Recent Monitor Data Heart Rate from ECG 85 NIBP 113/66 NIBP BP-Mean 81 Respiration from ECG 21 SpO2 100 I&O: 09/28/20 09/29/20 09/30/20 06:59 06:59 06:59 Intake Total 2200 1460 Output Total 900 493 150 Balance 1300 967 -150 Result Diagrams: 09/29/20 06:17 09/29/20 03:40 Hospitalist ROS - Medication Medications: Active Medications Generic Name Dose Route Start Last Admin Trade Name Freq PRN Reason Stop Dose Admin Albumin Human 25 gm 09/29/20 15:00 09/29/20 14:55 Albumin 25% 25 Gm/100 Ml Bot IVPB 09/30/20 15:01 25 gm TID RENARD Administration Ceftriaxone Sodium 1 gm/ 100 mls @ 200 mls/hr 09/22/20 14:00 09/29/20 14:55 Sodium Chloride IVPB 100 mls Q24HR RENARD Administration Pantoprazole Sodium 40 mg 09/23/20 09:00 09/29/20 07:58 Pantoprazole 40 Mg Vial IVP 40 mg DAILY RENARD Administration Phenol 0 ml 09/22/20 19:49 09/22/20 21:36 Chloraseptic [place] 180 Ml Bottle PO 1 spr BIDPRN PRN Administration Sore Throat Rifaximin 550 mg 09/22/20 21:00 09/29/20 07:58 Rifaximin 550 Mg Tab PO 550 mg BID RENARD Administration Sodium Chloride 10 ml 09/24/20 21:00 09/29/20 07:58 Flush - Normal Saline 10 Ml Syringe IVF 10 ml Q12HR RENARD Administration - Exam General Appearance: awake alert ENT: normocephalic atraumatic Neck: supple, no JVD Heart: RRR Respiratory: normal chest expansion, no tachypnea Gastrointestinal - other findings: Abdomen is soft and distended. Neurological: cranial nerve grossly intact Hosp A/P - Plan Hosp A/P (1) Acute kidney injury Code(s): N17.9 - ACUTE KIDNEY FAILURE, UNSPECIFIED Status: Acute (2) Ascites Code(s): R18.8 - OTHER ASCITES Status: Chronic (3) Alcohol abuse Code(s): F10.10 - ALCOHOL ABUSE, UNCOMPLICATED Status: Chronic (4) Chronic hepatitis C Code(s): B18.2 - CHRONIC VIRAL HEPATITIS C Status: Chronic Qualifiers: Hepatic coma status: without hepatic coma Qualified Code(s): B18.2 - Chroni c viral hepatitis C (5) Cirrhosis Code(s): K74.60 - UNSPECIFIED CIRRHOSIS OF LIVER Status: Chronic Qualifiers: Hepatic cirrhosis type: alcoholic cirrhosis Ascites presence: with ascites Qualified Code(s): K70.31 - Alcoholic cirrhosis of liver with ascites (6) Anemia Code(s): D64.9 - ANEMIA, UNSPECIFIED Status: Acute - Plan * Acute kidney injury secondary to hepatorenal syndrome. Creatinine level has worsened since yesterday. IV albumin will be administered. Appreciate nephrology. * Ascites- Massive- he is s/p large volume paracentesis X2. It seems like the ascitic fluid has reaccumulated again. Leukocytosis has also been worsening for the past 2 days. Recent paracentesis fluid was sent for cell count and cultures. The results are pending. The patient's abdomen is nontender and he is not febrile. No clinical evidence of significant ascites on examination. * Hepatic encephalopathy- improved -continue Lactulose, and Rifixamin to achieve 3-4 bowel movements a day. * Anemia-with macrocytosis due to liver disease. H&H improved with transfusion. * Cirrhosis- decompensated-poor prognosis. The patient is in discussion with palliative care team regarding goals of care. * Hypokalemia: Replace potassium.
[2020-09-30 04:58] LABS: Band 3 % (5-11); Eosinophils 4 % (0-10); Hemoglobin 7.6 g/dL (14.0-18.0); Hypochromia SLIGHT = 6-15 cells (100X) (0-5/hpf); Lymphocytes 5 % (21-51); MDiff Complete? YES; Mean Corpuscular HGB CONC 34.1 g/dL (32.0-36.0); Mean Corpuscular Hemoglobin 31.3 pg (27.0-31.0); Mean Corpuscular Volume 91.8 fL (78.0-98.0); Mean Platelet Volume 7.6 fL (7.4-10.4); Monocytes 12 % (0-10); Neutrophil 76 % (42-75); Platelet Count 75 thou/uL (130-400); Platelet Morphology Comment Appears Decreased; RBC Distribution Width 13.8 % (11.5-14.5); Red Blood Cell (RBC) Count 2.43 mill/uL (4.70-6.10); White Blood Cell (WBC) Count 16.5 thou/uL (4.8-10.8)
[2020-09-30 05:03] LABS: Anion Gap 20 mmol/L (10-20); BUN (Urea Nitrogen) 117 mg/dL (8.9-20.6); Calc. Creatinine Clearance 31 mL/min (70-130); Calcium 8.6 mg/dL (7.8-10.44); Carbon Dioxide 16 mmol/L (22-29); Chloride 91 mmol/L (98-107); Estimated GFR-MDRD 19; Glucose 121 mg/dL (70-105); Sodium 124 mmol/L (136-145)
[2020-09-30 05:09] LABS: Potassium 2.9 mmol/L (3.5-5.1)
[2020-09-30] MEDS ORDERED: Potassium Chloride 20 MEQ TAB PO SCH ×2 (05:30→09:15)
[2020-09-30] MEDS: Rifaximin 550 MG TAB PO SCH ×2 (09:18→20:54)
[2020-09-30] MEDS: Pantoprazole 40 MG VIAL IVP SCH (09:19)
[2020-09-30] MEDS: Albumin 25% 25 GM/100 ML BOT IVPB SCH ×2 (09:19→16:19)
--- NOTE | 2020-09-30 11:55 | PRG ---
DATE OF SERVICE: 09/30/2020 SUBJECTIVE: A 35-year-old gentleman being seen for acute kidney injury. The patient denies any nausea, vomiting, or chest pain. OBJECTIVE: GENERAL: The patient is awake, alert. VITAL SIGNS: Afebrile. Pulse 89, breathing 16, blood pressure 100/66. HEENT: Head normocephalic and atraumatic. Eyes intact, no ulcers. Nose intact, no ulcers. Ears intact, no ulcers. NECK: Supple. No JVD. CHEST: Symmetrical and clear. CARDIOVASCULAR: Shows S1 and S2, no rub, no murmur. GASTROINTESTINAL: Abdomen is soft, bowel sounds positive. EXTREMITIES: Show no edema or ulcers. SKIN: Shows no rash or petechiae. MUSCULOSKELETAL: Shows no joint swelling or stiffness. GENITOURINARY: Shows no Damon or CVA tenderness. NEUROLOGIC: Motor intact. Cranial nerves intact. LABORATORY DATA: Labs showed hemoglobin 7.6. Potassium 2.9, creatinine 3.6. ASSESSMENT AND PLAN: 1. Chronic kidney disease stage 4 with acute kidney injury, likely progressive hepatorenal syndrome and decreased effective arterial blood volume with the patient's increasing uremia and pretty much oliguria. We will offer renal replacement therapy. The patient is undecided. 2. Hypokalemia. Recommend potassium replacement. 3. Metabolic acidosis. Continue sodium bicarbonate. 4. Hyponatremia due to renal failure. 5. Uremia, increasing. Risks versus benefits of dialysis were discussed and will proceed if the patient agrees. Job ID: [id number]
[2020-09-30 13:21] LABS: Potassium 3.3 mmol/L (3.5-5.1)
[2020-09-30] MEDS: cefTRIAXone\\ROCEPHIN 1 GM in Sodium Chloride 0.9% 100 ML IVPB SCH (14:55)
--- NOTE | 2020-09-30 16:09 | PDOC.PALPN ---
Palliative Progress Note - Subjective omplains of mils itching to lower abdomen. Discussed hepatorenal disease. Hospice [facility] to visit he and his today. - Objective Vital Signs: Vital Signs - Most Recent Temp Pulse Resp BP Pulse Ox 98.3 F 85 12 96/50 L 98 09/30/20 12:15 09/30/20 12:15 09/30/20 12:15 09/30/20 12:15 09/30/20 12:15 - Physical Exam Constitutional: cachectic, emaciated, ill appearing HEENT: moist MMs Respiratory: no wheezing, unlabored breathing Cardiovascular: RRR Gastrointestinal: soft Deviation from normal: Distended Genitourinary: continent Musculoskeletal: no edema, diffuse muscle atrophy Neurology: moves all 4 limbs, no focal deficits Skin: cap refill <2 seconds Psychiatric: A&O x 3 - Assessment (1) Palliative care encounter Code(s): Z51.5 - ENCOUNTER FOR PALLIATIVE CARE Current Visit: Yes Status: Acute (2) Hepatorenal syndrome Code(s): K76.7 - HEPATORENAL SYNDROME Current Visit: Yes Status: Acute (3) Chronic hepatitis C Code(s): B18.2 - CHRONIC VIRAL HEPATITIS C Current Visit: No Status: Chronic Qualifiers: Hepatic coma status: without hepatic coma Qualified Code(s): B18.2 - Chronic viral hepatitis C (4) Cirrhosis Code(s): K74.60 - UNSPECIFIED CIRRHOSIS OF LIVER Current Visit: No Status: Chronic Qualifiers: Hepatic cirrhosis type: alcoholic cirrhosis Ascites presence: with ascites Qualified Code(s): K70.31 - Alcoholic cirrhosis of liver with ascites - Plan Plan: Lengthy conversation related to impact of dialysis, and consideration of this. Discussed Dialysis paired with paracentesis verses hospice. Dr Bueno also educated patient on disease process and dialysis. Communicated with Dr Petty Patient and his are discussing the decision to transition to hospice, or continue with aggressive measures and seek to be placed on liver transplant list. Please also refer to Palliative Care notes in note section [45] minutes spent on this encounter with >50% of the time in counseling and coordination of care. - ROS Constitutional: alert, weakness ENT: other (Deneis difficulity swallowing, congestion) Respiratory: shortness of breath with extertion Cardiology: other (Denies chest pain or palpitations) Gastrointestinal: diarrhea, other (Denies nausea, vomiting) Neurological: other (Denies confusion or dizziness)
[2020-09-30] MEDS: Midodrine HCl 5 MG TAB PO SCH ×2 (16:19→20:54)
--- NOTE | 2020-09-30 16:29 | PRG ---
DATE OF SERVICE: 09/30/2020 SUBJECTIVE: Mr. Carnes is up and walking around. He denies any dizziness. Denies any melena or nausea or vomiting. He is not eating much because he cannot drink much. MEDICATIONS: He is on 800 mL fluid restriction. 1. He is on albumin 25 g t.i.d. 2. Rocephin. 3. Lactulose b.i.d. He has been cut back because he had 14 bowel movements day before yesterday. 4. Protonix 40 mg daily. 5. Rifaximin 550 b.i.d. 6. IV fluids are now on hold. PHYSICAL EXAMINATION: VITAL SIGNS: Temperature is 97, pulse 85. Blood pressure 96/50, it was 100/66 earlier in the day and 90/58 this morning, yesterday it was in the 116 to 120 range. Systolics have all been in the 50s or 60s. GENERAL: He has temporal wasting. He has muscle wasting in his arms. LUNGS: Clear. ABDOMEN: Protuberant with ascites and tympany, shifting dullness. There is no umbilical hernia. There is no abdominal pain. EXTREMITIES: Reveal really no edema at this time. NEUROLOGIC: He has no asterixis. LABORATORY DATA: White count is 16.5, down from 20 yesterday; hemoglobin is 7.6, it was 9.5 yesterday. Platelet count is 75,000, bands are 76%. INR is 1.8 on the when he came in. Sodium 124, potassium 2.9, BUN and creatinine have climbed up to 173 and 3.60 after dropping from 107 and 3.66 on the 1st to 100 and 2.6 on the ; it has climbed the last 2 days. Urine drug screen was negative on admission. Microbiology shows negative blood cultures since admission. Ascitic fluid was negative for SBP with negative culture. Urinalysis on admission 09/22 showed no white blood cells or bacteria. ASSESSMENT: 1. Cirrhosis from alcohol abuse, no longer drinking. 2. Decompensation with ascites, encephalopathy, and now renal insufficiency. 3. Renal insufficiency. This may be a component of hepatorenal versus hyponatremia from perfusion abnormalities. RECOMMENDATIONS: 1. Would continue albumin 25 g IV q.8. would start midodrine as his pressure runs low. 2. We will start octreotide to help improve renal function. 3. His blood count has dropped a bit. We will go ahead and give him a unit of blood. It does not seem he has any overt GI bleeding at this time. This needs to be watched closely. Ultrasound in July showed no liver mass. He has not had a recent alpha-fetoprotein for hepatoma screening. We will go ahead and get that to make sure he does not have a hepatoma. He is not a candidate for contrast imaging of the abdomen presently. 4. If he does not respond to aggressive fluid resuscitation and albumin support and pressure support, then most likely this is hepatorenal. If he has hepatorenal syndrome, dialysis is not going to reverse the process. The problem is his liver and really the only option is a liver transplant evaluation, although presently with the patient being unfunded can be available for him. We will follow along with you. Job ID: [id number]
--- NOTE | 2020-09-30 16:29 | PDOC.HOSPP ---
- Subjective Encounter Date: 09/30/20 Subjective: The patient was able to walk down the [place] without significant shortness of breath. - Objective Vital Signs & Weight: Vital Signs (12 hours) Temp Pulse Resp BP BP Pulse Ox 09/30/20 16:22 97.6 F 79 12 94/52 L 100 09/30/20 12:15 98.3 F 85 12 96/50 L 98 09/30/20 08:36 97.6 F 89 18 100/66 98 Weight Admit Weight 168 lb 12.8 oz Weight 168 lb 12.8 oz Most Recent Monitor Data Heart Rate from ECG 85 NIBP 113/66 NIBP BP-Mean 81 Respiration from ECG 21 SpO2 100 I&O: 09/29/20 09/30/20 10/01/20 06:59 06:59 06:59 Intake Total 1460 970 Output Total 493 300 Balance 967 670 Result Diagrams: 09/30/20 03:43 09/30/20 12:57 Hospitalist ROS - Medication Medications: Active Medications Generic Name Dose Route Start Last Admin Trade Name Freq PRN Reason Stop Dose Admin Ceftriaxone Sodium 1 gm/ 100 mls @ 200 mls/hr 09/22/20 14:00 09/30/20 14:55 Sodium Chloride IVPB 100 mls Q24HR RENARD Administration Lactulose 20 gm 09/29/20 21:00 09/30/20 09:15 Lactulose 20 Gm/30 Ml Udcup PO Not Given BID RENARD Midodrine 5 mg 09/30/20 15:00 09/30/20 16:19 Midodrine Hcl 5 Mg Tab PO 5 mg TID RENARD Administration Pantoprazole Sodium 40 mg 09/23/20 09:00 09/30/20 09:19 Pantoprazole 40 Mg Vial IVP 40 mg DAILY RENARD Administration Phenol 0 ml 09/22/20 19:49 09/22/20 21:36 Chloraseptic [place] 180 Ml Bottle PO 1 spr BIDPRN PRN Administration Sore Throat Rifaximin 550 mg 09/22/20 21:00 09/30/20 09:18 Rifaximin 550 Mg Tab PO 550 mg BID RENARD Administration Sodium Chloride 10 ml 09/24/20 21:00 09/30/20 09:19 Flush - Normal Saline 10 Ml Syringe IVF 10 ml Q12HR RENARD Administration - Exam General Appearance: awake alert ENT: normocephalic atraumatic, no oropharyngeal lesions Neck: supple, no JVD Gastrointestinal: distended Neurological: cranial nerve grossly intact, no focal deficits Hosp A/P - Plan Hosp A/P (1) Acute kidney injury Code(s): N17.9 - ACUTE KIDNEY FAILURE, UNSPECIFIED Status: Acute (2) Ascites Code(s): R18.8 - OTHER ASCITES Status: Chronic (3) Alcohol abuse Code(s): F10.10 - ALCOHOL ABUSE, UNCOMPLICATED Status: Chronic (4) Chronic hepatitis C Code(s): B18.2 - CHRONIC VIRAL HEPATITIS C Status: Chronic Qualifiers: Hepatic coma status: without hepatic coma Qualified Code(s): B18.2 - Chronic viral hepatitis C (5) Cirrhosis Code(s): K74.60 - UNSPECIFIED CIRRHOSIS OF LIVER Status: Chronic Qualifiers: Hepatic cirrhosis type: alcoholic cirrhosis Ascites presence: with ascites Qualified Code(s): K70.31 - Alcoholic cirrhosis of liver with ascites (6) Anemia Code(s): D64.9 - ANEMIA, UNSPECIFIED Status: Acute - Plan * Acute kidney injury secondary to hepatorenal syndrome. Creatinine level has worsened since yesterday. IV albumin will be administered. Appreciate nephrology. * Ascites- Massive- he is s/p large volume paracentesis X2. It seems like the ascitic fluid has reaccumulated again. Leukocytosis has also been worsening for the past 2 days. Recent paracentesis fluid was sent for cell count and cultures. The results are pending. The patient's abdomen is nontender and he is not febrile. No clinical evidence of significant ascites on examination. * Hepatic encephalopathy- improved -continue Lactulose, and Rifixamin to achieve 3-4 bowel movements a day. * Anemia-with macrocytosis due to liver disease. H&H improved with transfusion. * Cirrhosis- decompensated-poor prognosis. The family are discussing possible transition to hospice. * Hypokalemia: Replace potassium.
[2020-09-30] MEDS ORDERED: Octreotide Acetate 50 MCG/ML AMP SC SCH (22:00)
[2020-09-30] MEDS: Octreotide Acetate 100 MCG/ML VIAL SC SCH (22:43)
[2020-10-01 05:02] LABS: INR-International Normal Ratio 2.2; Prothrombin Time 24.9 sec (12.0-14.7)
[2020-10-01 05:17] LABS: ALT (SGPT) 14 U/L (8-55); AST (SGOT) 19 U/L (5-34); Albumin 3.3 g/dL (3.5-5.0); Alkaline Phosphatase 64 U/L (40-110); Anion Gap 21 mmol/L (10-20); Bilirubin, Total 3.4 mg/dL (0.2-1.2); Calc. Creatinine Clearance 25 mL/min (70-130); Calcium 8.9 mg/dL (7.8-10.44); Carbon Dioxide 15 mmol/L (22-29); Chloride 94 mmol/L (98-107); Estimated GFR-MDRD 15; Globulin 2.5 g/dL (2.4-3.5); Glucose 85 mg/dL (70-105); Protein, Total 5.8 g/dL (6.0-8.3); Sodium 126 mmol/L (136-145)
[2020-10-01] MEDS: Octreotide Acetate 100 MCG/ML VIAL SC SCH ×3 (05:21→20:48)
[2020-10-01 05:30] LABS: BUN (Urea Nitrogen) 119 mg/dL (8.9-20.6)
[2020-10-01 06:28] LABS: Hemoglobin 7.9 g/dL (14.0-18.0); Mean Corpuscular Volume 88.7 fL (78.0-98.0); Mean Platelet Volume 8.1 fL (7.4-10.4); Platelet Count 64 thou/uL (130-400); RBC Distribution Width 14.3 % (11.5-14.5); Red Blood Cell (RBC) Count 2.48 mill/uL (4.70-6.10); White Blood Cell (WBC) Count 9.9 thou/uL (4.8-10.8)
[2020-10-01 07:12] LABS: Band 11 % (5-11); Burr Cells SLIGHT = 2-5 cells (100X) (0-1/hpf); Eosinophils 3 % (0-10); Lymphocytes 5 % (21-51); MDiff Complete? YES; Monocytes 15 % (0-10); Neutrophil 65 % (42-75); Platelet Morphology Comment Appears Adequate; Polychromasia SLIGHT = 2-3 cells (100X) (0-2/hpf); Schistocytes SLIGHT = 2-5 cells (100X) (0-1/hpf)
[2020-10-01] MEDS: Pantoprazole 40 MG VIAL IVP SCH (10:31)
[2020-10-01] MEDS: Rifaximin 550 MG TAB PO SCH ×2 (10:32→20:47)
[2020-10-01] MEDS: Midodrine HCl 5 MG TAB PO SCH ×3 (10:32→20:47)
--- NOTE | 2020-10-01 11:41 | PRG ---
DATE OF SERVICE: 10/01/2020 SUBJECTIVE: 35-year-old gentleman being seen for stage 5 chronic kidney disease. The patient denied any nausea, vomiting, or chest pain. PHYSICAL EXAMINATION: GENERAL: The patient is awake and alert. VITAL SIGNS: Afebrile, pulse 85, breathing at 16, blood pressure 117/52. HEENT: Head normocephalic and atraumatic. Eyes intact, no ulcers. Nose intact, no ulcers. Ears intact, no ulcers. NECK: Supple. No JVD. CHEST: Symmetrical and clear. CARDIOVASCULAR: Shows S1 and S2, no rub, no murmur. GASTROINTESTINAL: Abdomen is soft, bowel sounds positive. EXTREMITIES: Show no edema or ulcers. SKIN: Shows no rash or petechiae. MUSCULOSKELETAL: Shows no joint swelling or stiffness. GENITOURINARY: Shows no Damon or CVA tenderness. NEUROLOGIC: Motor intact. Cranial nerves intact. LABORATORY DATA: Reviewed. ASSESSMENT AND PLAN: 1. Chronic kidney disease, stage 5. Refused dialysis. The patient . 2. Hypertension, stable. 3. Anemia, stable. I will sign off on this patient. Please reconsult as needed. Job ID: [id number]
[2020-10-01] MEDS ORDERED: Sodium Bicarbonate 2.5 MEQ/5 ML VIAL ONE (14:20)
[2020-10-01] MEDS ORDERED: Lidocaine 1% PF 5 ML VIAL ONE (14:20)
--- NOTE | 2020-10-01 14:31 | PRG ---
DATE OF SERVICE: 10/01/2020 SUBJECTIVE: Mr. Carnes is sleeping. He is arousable. He is alert and oriented to person, place, and time. OBJECTIVE: VITAL SIGNS: Temperature 97, pulse 76, blood pressure . ABDOMEN: Soft and nontender. He has ascites, but it is not tense. EXTREMITIES: Reveal trace edema. LABORATORY DATA: White count 9.9; hemoglobin 7.9, it was 7.6 yesterday, transfused 1 unit of blood; platelets 64,000. Sodium 126, potassium is 4, BUN and creatinine are 119 and 4.35, which is increasing. Microbiology, ascitic fluid and blood cultures are all negative. ASSESSMENT: 1. Hepatorenal syndrome, progressive renal failure. The patient and family decided against dialysis. Nephrology has signed off. 2. Prerenal azotemia on admission. He has been aggressively resuscitated and given transfusion of albumin. In addition, to help improve perfusion started on midodrine and octreotide. He continues to fail to respond to this. 3. Hepatic encephalopathy, improved. RECOMMENDATIONS: 1. Continue albumin. Continue midodrine. Avoid diuretics. Continue diet ad aarti. 2. Continue medicines for hepatic encephalopathy. 3. Avoid benzos or narcotics. 4. Continue ulcer prophylaxis. 5. Continue lactulose and Xifaxan. Job ID: [id number]
--- NOTE | 2020-10-01 15:32 | ULT ---
Sonographic guided paracentesis HISTORY: Symptomatic ascites. FINDINGS: After explaining the procedure and answering all questions, sonographic survey showed a lar ge amount of free fluid throughout the abdomen. Sterile technique, buffered local anesthesia, sonographic guidance, and a left lateral approach were used to carefully advance a 19-gauge Yueh needle and catheter into the free fluid. Catheter was left to drain a total volume of 6.2 L dark arnie liquid. Catheter was removed with large amount of remaining fluid. Patient tolerated the procedure well and was returned in improved condition. IMPRESSION : Technically successful sonographic guided paracentesis. 6.2 L. Large residual.
[2020-10-01] MEDS: cefTRIAXone\\ROCEPHIN 1 GM in Sodium Chloride 0.9% 100 ML IVPB SCH (15:52)
[2020-10-01] MEDS: Albumin 25% 25 GM/100 ML BOT IVPB SCH ×2 (15:54→20:46)
--- NOTE | 2020-10-01 16:39 | PDOC.HOSPP ---
- Subjective Encounter Date: 10/01/20 Subjective: The patient is complaining of worsening abdominal distention today. - Objective Vital Signs & Weight: Vital Signs (12 hours) Temp Pulse Resp BP BP Pulse Ox 10/01/20 15:59 97.7 F 69 18 101/48 L 100 10/01/20 12:16 97.8 F 76 18 97/53 L 100 10/01/20 10:35 117/52 L 10/01/20 08:05 97.7 F 82 14 85/56 L 99 Weight Admit Weight 168 lb 12.8 oz Weight 166 lb 3.2 oz Most Recent Monitor Data Heart Rate from ECG 85 NIBP 113/66 NIBP BP-Mean 81 Respiration from ECG 21 SpO2 100 I&O: 09/30/20 10/01/20 10/02/20 06:59 06:59 06:59 Intake Total 970 1790 Output Total 300 Balance 670 1790 Result Diagrams: 10/01/20 03:52 10/01/20 03:52 Hospitalist ROS - Medication Medications: Active Medications Generic Name Dose Route Start Last Admin Trade Name Vicq PRN Reason Stop Dose Admin Albumin Human 25 gm 10/01/20 15:00 10/01/20 15:54 Albumin 25% 25 Gm/100 Ml Bot IVPB 10/02/20 15:01 25 gm 0300,0900,1500,2100 RENARD Administration Ceftriaxone Sodium 1 gm/ 100 mls @ 200 mls/hr 09/22/20 14:00 10/01/20 15:52 Sodium Chloride IVPB 100 mls Q24HR RENARD Administration Lactulose 20 gm 09/29/20 21:00 09/30/20 09:15 Lactulose 20 Gm/30 Ml Udcup PO Not Given BID RENARD Midodrine 5 mg 09/30/20 15:00 10/01/20 15:54 Midodrine Hcl 5 Mg Tab PO 5 mg TID RENARD Administration Octreotide Acetate 50 mcg 09/30/20 22:00 10/01/20 15:53 Octreotide Acetate 100 Mcg/Ml Vial SC 50 mcg Q8HR RENARD Administration Pantoprazole Sodium 40 mg 09/23/20 09:00 10/01/20 10:31 Pantoprazole 40 Mg Vial IVP 40 mg DAILY RENARD Administration Phenol 0 ml 09/22/20 19:49 09/22/20 21:36 Chloraseptic [place] 180 Ml Bottle PO 1 spr BIDPRN PRN Administration Sore Throat Rifaximin 550 mg 09/22/20 21:00 10/01/20 10:32 Rifaximin 550 Mg Tab PO 550 mg BID RENARD Administration Sodium Chloride 10 ml 09/24/20 21:00 10/01/20 10:33 Flush - Normal Saline 10 Ml Syringe IVF 10 ml Q12HR RENARD Administration - Exam General Appearance: awake alert ENT: normocephalic atraumatic Neck: supple, no JVD Respiratory: normal chest expansion, no tachypnea Neurological: cranial nerve grossly intact, no focal deficits Hosp A/P - Plan Hosp A/P (1) Acute kidney injury Code(s): N17.9 - ACUTE KIDNEY FAILURE, UNSPECIFIED Status: Acute (2) Ascites Code(s): R18.8 - OTHER ASCITES Status: Chronic (3) Alcohol abuse Code(s): F10.10 - ALCOHOL ABUSE, UNCOMPLICATED Status: Chronic (4) Chronic hepatitis C Code(s): B18.2 - CHRONIC VIRAL HEPATITIS C Status: Chronic Qualifiers: Hepatic coma status: without hepatic coma Qualified Code(s): B18.2 - Chronic viral hepatitis C (5) Cirrhosis Code(s): K74.60 - UNSPECIFIED CIRRHOSIS OF LIVER Status: Chronic Qualifiers: Hepatic cirrhosis type: alcoholic cirrhosis Ascites presence: with ascites Qualified Code(s): K70.31 - Alcoholic cirrhosis of liver with ascites (6) Anemia Code(s): D64.9 - ANEMIA, UNSPECIFIED Status: Acute - Plan * Acute kidney injury secondary to hepatorenal syndrome. Nephrology recommended dialysis but after discussion with the palliative care team and his family, the patient decided against dialysis. He would like to pursue hospice care. * Ascites- Massive- he is s/p large volume paracentesis X2. Another paracentesis was ordered today. * Hepatic encephalopathy- improved -continue Lactulose, and Rifixamin to achieve 3-4 bowel movements a day. * Anemia-with macrocytosis due to liver disease. H&H improved with transfusion. * Cirrhosis- decompensated-poor prognosis. * Hypokalemia: Replace potassium.
[2020-10-02] MEDS: Albumin 25% 25 GM/100 ML BOT IVPB SCH ×3 (02:37→15:22)
[2020-10-02] MEDS: Octreotide Acetate 100 MCG/ML VIAL SC SCH ×2 (05:17→15:22)
[2020-10-02] MEDS: Rifaximin 550 MG TAB PO SCH (09:06)
[2020-10-02] MEDS: Pantoprazole 40 MG VIAL IVP SCH (09:06)
[2020-10-02] MEDS: Midodrine HCl 5 MG TAB PO SCH ×2 (09:08→15:22)
--- NOTE | 2020-10-02 11:46 | PDOC.DS.DS ---
Provider - Provider Date of Admission: 09/22/20 12:28 Date of Discharge: 10/02/20 Admitting Provider: Alexey Olvera MD Primary Care Physician: [facility] Course - Hospital Course Hospital Course: This is unfortunate 35 years male who has significant past medical histories of alcoholic liver cirrhosis complicated with ascites, CKD, esophageal varices, hepatic encephalopathy, and hepatitis C, who was sent from nephrology office for worsening renal function. He was subsequently admitted for acute hepatic encephalopathy. With his ammonia level was 270. He was started on empiric antibiotic, lactulose, rifaximin. He required paracentesis. Nephrology, and GI were consulted. Patient was placed on maximum therapy including IV albumin, and required low volume paracentesis. Patient developed hepatorenal syndrome. Dialysis was offered, however, patient and family decided against it. Palliative care was consulted. They have subsequently decided to go home with home hospice. Resuscitation Status: 09/22/20 14:39 Resuscitation Status Routine Resuscitation Status: FULL: Full Resuscitation - Labs Lab Results: 10/01/20 03:52 10/01/20 03:52 Abnormal Lab Results - Last 48 hrs 09/30/20 12:57: Potassium 3.3 L 09/30/20 18:26: Crossmatch See Detail 10/01/20 03:52: Sodium 126 L, Chloride 94 L, Carbon Dioxide 15 L, Anion Gap 21 H, BUN 119 H, Creatinine 4.35 H, Total Bilirubin 3.4 H, Serum Total Protein 5.8 L, Albumin 3.3 L 10/01/20 03:52: RBC 2.48 L, Hgb 7.9 L, Hct 22.0 L, MCH 32.0 H, Plt Count 64 L, Lymphocytes % (Manual) 5 L, Monocytes % (Manual) 15 H 10/01/20 03:52: PT 24.9 H Microbiology - Entire Visit 09/26/20 12:00 Ascites Fluid Body Fluid Culture - Preliminary 09/22/20 14:44 Venous blood - Left Hand Blood Culture - Final NO GROWTH IN 5 DAYS 09/22/20 14:44 Venous blood - Right Hand Blood Culture - Final NO GROWTH IN 5 DAYS - Physical Exam Vitals: Vital Signs (12 hours) Temp Pulse Resp BP BP Pulse Ox 10/02/20 08:00 97.7 F 98 17 101/57 L 100 10/02/20 04:00 97.3 F L 59 L 20 98/54 L 100 10/01/20 23:49 97/52 L Weight Admit Weight 168 lb 12.8 oz Weight 151 lb Most Recent Monitor Data Heart Rate from ECG 85 NIBP 113/66 NIBP BP-Mean 81 Respiration from ECG 21 SpO2 100 Physical Exam: The patient was seen and examined on the day of discharge. General Appearance: awake alert, somewhat lethargic ENT: normocephalic atraumatic Neck: supple, no JVD Cardiology: RRR, S1S2 Respiratory: normal chest expansion, no tachypnea Abdomen: distended, ascites Neurological: cranial nerve grossly intact, no focal deficits Problem - Problem (1) Acute hepatic encephalopathy Code(s): K72.00 - ACUTE AND SUBACUTE HEPATIC FAILURE WITHOUT COMA Status: Acute (2) Hepatorenal syndrome Code(s): K76.7 - HEPATORENAL SYNDROME Status: Acute (3) Acute kidney injury Code(s): N17.9 - ACUTE KIDNEY FAILURE, UNSPECIFIED Status: Acute (4) Anemia Code(s): D64.9 - ANEMIA, UNSPECIFIED Status: Acute (5) Anemia, chronic disease Code(s): D63.8 - ANEMIA IN OTHER CHRONIC DISEASES CLASSIFIED ELSEWHERE Status: Acute (6) Palliative care encounter Code(s): Z51.5 - ENCOUNTER FOR PALLIATIVE CARE Status: Acute (7) Ascites Code(s): R18.8 - OTHER ASCITES Status: Chronic (8) Acute blood loss anemia Code(s): D62 - ACUTE POSTHEMORRHAGIC ANEMIA Status: Acute (9) Alcoholic cirrhosis Code(s): K70.30 - ALCOHOLIC CIRRHOSIS OF LIVER WITHOUT ASCITES Status: Acute Plan - Discharge Medications Home Medications: Medication Instructions Recorded Confirmed Type Lactulose 30 ml PO DAILY 05/12/20 09/23/20 History Cyanocobalamin (Vitamin B-12) 1,000 mcg PO DAILY 14 Days #14 tab 05/18/20 09/23/20 Rx [Vitamin B-12] Folic Acid [Folvite] 1 mg PO DAILY 09/03/20 09/23/20 History Pantoprazole [Protonix] 40 mg PO DAILY 09/16/20 09/23/20 History Thiamine HCl [Vitamin B-1] 100 mg PO DAILY 09/16/20 09/23/20 History Allergies: Blackberries Allergy (Mild, Uncoded 09/22/20 16:26) Hives - Discharge Instructions Activity:: Activity as Tolerated Nourishment:: No Restrictions - Follow up Plan Referrals: [facility] [Primary Care Provider] - 3 Days Disposition: HOSPICE-HOME Quality - Care Measures CORE MEASURES:: N/A
[2020-10-02] MEDS: cefTRIAXone\\ROCEPHIN 1 GM in Sodium Chloride 0.9% 100 ML IVPB SCH (15:27)
[2020-10-02 16:24] VITALS: BP 100/56; TEMP 97
--- NOTE | 2020-10-04 10:59 | PQF ---
CLINICAL DOCUMENTATION CLARIFICATION FORM: Dear Dr. Adhikari Date: 10/04/2020 Please exercise your independent, professional judgment in responding to the clarification form. Clinical indicators are provided on the bottom of this form for your review. Please check appropriate box(es) to clarify if the following diagnosis has been ruled in our ruled out: SEPSIS [ ] Ruled in diagnosis [X ] Ruled out diagnosis [ ] Cannot rule out diagnosis [ ] Other diagnosis [ ] Unable to determine In addition, please specify: Present on Admission (POA): [ ] Yes [ ] No [ ] Unable to determine For continuity of documentation, please document condition throughout progress notes and discharge summary. Thank You. CLINICAL INDICATORS - SIGNS / SYMPTOMS / LABS / RESULTS AND LOCATION IN EMR *ED 09/22: Vital Signs: Pulse 82-99 Temp (max) 98.1 (oral) RR 8-20 BP 101/56 - 108/64 *H&P 09/22 ([facility]): * Acute metabolic encephalopathy * Multifactoral-hepatic encephalopathy/uremia/hyponatremia * Also possible concern for sepsis-possible SBP *Consultation 09/22 ([facility]): * Hepatic encephalopathy of unclear etiology. * He shows no signs of infection, but it is always an underlying concern. * Paracentesis for SBP tomorrow. Empiric antibiotics started today. *LAB (EMR): WBC Neutrophils % Band Neutrophils % 09/22 8.9 76.2 09/23 11.6 83.0 09/24 12.4 81.5 09/26 11.1 10 09/27 15.6 81.8 09/28 20.6 2 09/29 20.5 12 09/30 16.5 3 11 9.9 11 *Vital Signs (EMR): 09/24 at 2021 RR 24 09/25 at 0340 Pulse 102 11/ at 0300, 0805 Pulse 105, 107 11/ at 0400, 1905 Pulse 105 11/2 at 1209 RR 23 11/3 at 0903 RR 22 11/ at 0400, 1152, 1526 Pulse 117, 107 *Microbiology (EMR): * Collected on 09/22 Blood Culture (x2) Final No Growth in 5 days * Collected on 09/26 Body Fluid Culture Final WBCs Seen RBC seen No Organisms present *DC Summary: Admitted for acute hepatic encephalopathy Ammonia level was 270. He was started on empiric antibiotic, lactulose, rifaximin. He required paracentesis. RISK FACTORS / RESULTS AND LOCATION IN EMR *H&P 09/22 ([facility]): * Alcoholic liver cirrhosis with ascites * Hepatitis C TREATMENTS / RESULTS AND LOCATION IN EMR *ED 09/22: NS 1L IV *H&P 09/22 ([facility]): Monitor in IMCU *Consultation 09/22 ([facility]): We will start IV fluids as well. Paracentesis for SBP tomorrow. Empiric antibiotics started today. *Microbiology (EMR): Blood Culture x2 (09/22), Body Fluid Culture (09/26) *Labs (EMR): CBC Daily 09/22 09/24, 09/26-10/01 Thank you, Sonya CDS/Neonatal Social Worker Signature: Sonya Gresham RN, CDS Phone #: [phone] [email or web address] This is a permanent part of the Medical Record [facility]
== END 2020-10-02 18:30 | disposition hospice, home (50) | DRG 432 ==
LOC: ERS 09:20 → IMCU/EMU 12:28 → 2NO 09-24 16:33
PROVIDERS: ADMIT Student in an Organized Health Care Education/Training Program; ATTEND Family Medicine
PROC: 0W9G3ZZ Drainage of Peritoneal Cavity, Percutaneous Approach (ICD-10-PCS; principal; 2020-09-23)
PROC: 0W9G3ZZ Drainage of Peritoneal Cavity, Percutaneous Approach (ICD-10-PCS; 2020-09-26)
PROC: 30233N1 Transfusion of Nonautologous Red Blood Cells into Peripheral Vein, Percutaneous Approach (ICD-10-PCS; 2020-09-26)
PROC: 3E02340 Introduction of Influenza Vaccine into Muscle, Percutaneous Approach (ICD-10-PCS; 2020-09-28)
PROC: 0W9G3ZZ Drainage of Peritoneal Cavity, Percutaneous Approach (ICD-10-PCS; 2020-10-01)
DX: K70.40 Alcoholic hepatic failure without coma (principal); K76.7 Hepatorenal syndrome; G93.41 Metabolic encephalopathy; I85.10 Secondary esophageal varices without bleeding; Z51.5 Encounter for palliative care; N17.9 Acute kidney failure, unspecified; E87.1 Hypo-osmolality and hyponatremia; E87.2 Acidosis; E46 Unspecified protein-calorie malnutrition; R64 Cachexia; N18.5 Chronic kidney disease, stage 5; I12.0 Hypertensive chronic kidney disease with stage 5 chronic kidney disease or end stage renal disease; K70.31 Alcoholic cirrhosis of liver with ascites; Z20.828 Contact with and (suspected) exposure to other viral communicable diseases; D63.1 Anemia in chronic kidney disease; D69.6 Thrombocytopenia, unspecified; F10.10 Alcohol abuse, uncomplicated; B18.2 Chronic viral hepatitis C; E86.9 Volume depletion, unspecified; E87.6 Hypokalemia; Z23 Encounter for immunization; Z91.018 Allergy to other foods; Z68.21 Body mass index [BMI] 21.0-21.9, adult; Z87.891 Personal history of nicotine dependence; Z79.899 Other long term (current) drug therapy
CPT/HCPCS: 36415; 36430; 49083; 70450; 71045; 80048; 80053; 80306; 81001; 82105; 82140; 83735; 85025; 85060; 85610; 85730; 86850; 86900; 86901; 87040; 87070; 87205; 87635; 89051; 90471; 90662; C9113; G0008; J0696; J2354; J3480; J3490; J7050; J7070; P9016; P9047; U0003